=== PATIENT | male | born 1975 | race Caucasian/White ===

== ENCOUNTER → 2019-08-08 11:29 | Outpatient (BNVA) | payer MEDICAID, SELFPAY | PROVIDERS: Family Provider Family Medicine; PCP Family Medicine; Referring Provider Family Medicine; Visit Provider Nurse Practitioner | DX: G43.711 Chronic migraine without aura, intractable, with status migrainosus (principal); G40.209 Localization-related (focal) (partial) symptomatic epilepsy and epileptic syndromes with complex partial seizures, not intractable, without status epilepticus; F17.210 Nicotine dependence, cigarettes, uncomplicated | CPT/HCPCS: 99214; 99999 ==

== ENCOUNTER 2019-09-25 08:49 | Outpatient (CLI) | payer MEDICAID, SELFPAY ==
--- NOTE | 2019-09-25 08:57 | MR_ITS ---
WS: [id number] MRI LUMBAR SPINE NONCONTRAST TECHNIQUE: Sagittal T1, T2 and STIR imaging. Axial T1 and T2 imaging. CLINICAL INFORMATION: SCIATICA COMPARISON: MRI FINDINGS: Normal lumbar alignment. No acute compression. No high-grade central canal stenosis. Incidental heman gioma T2 and T10 vertebral body. L1-L2: Normal. L2-L3: Normal. L3-L4: No significant disc bulging. Tiny bilateral foraminal protrusions with mild foraminal narrowin g. Spinal canal is patent. Mild facet arthropathy. L4-L5: Mild annular bulging. Small right foraminal protrusion with mild right foraminal narrowing. Le ft foramen is patent. Mild facet arthropathy. Spinal canal is patent. L5-S1: No significant disc bulging. Spinal canal and foramen are patent. Mild facet arthropathy. Visualized pelvic bony structures: Normal. Paravertebral soft tissues: Normal. MR/MR lumbar spine wo con* [id number] IMPRESSION: 1. Normal lumbar alignment. No acute compression. No significant central canal narrowing. 2. Tiny bilateral foraminal protrusions L3-4 with mild bilateral foraminal enrico rowing. 3. Tiny right foraminal protrusion L4-5 slightly encroaches on the exiting rig ht L4 nerve root. 4. Mild facet arthropathy L3-L5.
--- NOTE | 2019-09-25 08:57 | MM_ITS ---
WS: [id number] DIAGNOSTIC BILATERAL DIGITAL MAMMOGRAM WITH CAD Bilateral breast ultrasound, limited HISTORY: PRITI BREAST LUMPS, 44-year-old male. COMPARISON: None available. TECHNIQUE: Bilateral craniocaudad, mediolateral oblique, and mediolateral views are submitted. Spot c ompression LEFT CC. Computer aided detection utilized. Breast composition: The breasts are almost entirely fatty. Triangular markers are placed over each br east. Markers correspond to the palpable abnormalities. There are no suspicious masses. There is a ly mph node suspected at the 2:00 axis of the LEFT breast. No nipple retraction. No adenopathy. Bilateral breast ultrasound. No suspicious masses or shadowing identified within either breast at the palpable abnormality sites. There is a lymph node at 2:00 LEFT breast which is benign. Lymph node measures 6 mm and corresponds t o the mammographic abnormality. MM/[place] [id number] IMPRESSION: BI-RADS: 2-Benign FOLLOW UP: See Report No breast masses are identified.
== END 2019-09-25 08:50 | disposition home or self-care (01) ==
LOC: RADSHAW 08:53
PROVIDERS: PCP Family Medicine; Visit Provider Family Medicine
DX: N63.10 Unspecified lump in the right breast, unspecified quadrant (principal); N63.20 Unspecified lump in the left breast, unspecified quadrant; M54.30 Sciatica, unspecified side; M51.26 Other intervertebral disc displacement, lumbar region; M47.816 Spondylosis without myelopathy or radiculopathy, lumbar region
CPT/HCPCS: 72148; 76642; 77066

== ENCOUNTER → 2020-01-13 13:33 | Outpatient (BNVA) | payer MEDICAID, SELFPAY | PROVIDERS: Visit Provider Psychiatry & Neurology Psychiatry | DX: F33.2 Major depressive disorder, recurrent severe without psychotic features (principal); F41.1 Generalized anxiety disorder; F17.200 Nicotine dependence, unspecified, uncomplicated; F10.20 Alcohol dependence, uncomplicated; F79 Unspecified intellectual disabilities | CPT/HCPCS: 99204 ==

== ENCOUNTER → 2020-02-10 07:36 | Outpatient (BNVA) | payer MEDICAID, SELFPAY | PROVIDERS: Visit Provider Psychiatry & Neurology Psychiatry | DX: F41.1 Generalized anxiety disorder (principal); F33.2 Major depressive disorder, recurrent severe without psychotic features; F79 Unspecified intellectual disabilities; F17.200 Nicotine dependence, unspecified, uncomplicated; F10.20 Alcohol dependence, uncomplicated | CPT/HCPCS: 99213 ==

== ENCOUNTER → 2020-04-24 09:43 | Outpatient (BNVA) | payer MEDICAID, SELFPAY | PROVIDERS: Visit Provider Psychiatry & Neurology Psychiatry | DX: F41.1 Generalized anxiety disorder (principal); F33.2 Major depressive disorder, recurrent severe without psychotic features; F79 Unspecified intellectual disabilities; F17.200 Nicotine dependence, unspecified, uncomplicated; F10.20 Alcohol dependence, uncomplicated | CPT/HCPCS: 99213 ==

== ENCOUNTER → 2020-06-30 10:39 | Outpatient (BNVA) | payer MEDICAID, SELFPAY | PROVIDERS: Visit Provider Counselor Mental Health | DX: F41.1 Generalized anxiety disorder (principal); F33.2 Major depressive disorder, recurrent severe without psychotic features; F79 Unspecified intellectual disabilities | CPT/HCPCS: 90834 ==

== ENCOUNTER → 2020-07-14 12:37 | Outpatient (BNVA) | payer MEDICAID, SELFPAY | PROVIDERS: Visit Provider Counselor Mental Health | DX: F41.1 Generalized anxiety disorder (principal); F33.2 Major depressive disorder, recurrent severe without psychotic features; F70 Mild intellectual disabilities | CPT/HCPCS: 90832 ==

== ENCOUNTER → 2020-07-17 15:17 | Outpatient (BNVA) | payer MEDICAID, SELFPAY | PROVIDERS: Visit Provider Psychiatry & Neurology Psychiatry | DX: F41.1 Generalized anxiety disorder (principal); F33.2 Major depressive disorder, recurrent severe without psychotic features; F10.20 Alcohol dependence, uncomplicated; F17.200 Nicotine dependence, unspecified, uncomplicated; F79 Unspecified intellectual disabilities | CPT/HCPCS: 99213 ==

== ENCOUNTER → 2020-08-26 10:45 | Outpatient (BNVA) | payer MEDICAID, SELFPAY | PROVIDERS: Visit Provider Counselor Mental Health | DX: F41.1 Generalized anxiety disorder (principal); F33.2 Major depressive disorder, recurrent severe without psychotic features | CPT/HCPCS: 90832 ==

== ENCOUNTER → 2020-09-21 13:42 | Outpatient (BNVA) | payer MEDICAID, SELFPAY | PROVIDERS: Visit Provider Counselor Mental Health | DX: F41.1 Generalized anxiety disorder (principal); F33.2 Major depressive disorder, recurrent severe without psychotic features; F79 Unspecified intellectual disabilities | CPT/HCPCS: 90832 ==

== ENCOUNTER → 2020-10-06 12:51 | Outpatient (BNVA) | payer MEDICAID, SELFPAY | PROVIDERS: Visit Provider Counselor Mental Health | DX: F41.1 Generalized anxiety disorder (principal); F33.2 Major depressive disorder, recurrent severe without psychotic features | CPT/HCPCS: 90832 ==

== ENCOUNTER → 2020-10-16 09:34 | Outpatient (BNVA) | payer MEDICAID, SELFPAY | PROVIDERS: Visit Provider Psychiatry & Neurology Psychiatry | DX: F41.1 Generalized anxiety disorder (principal); F33.2 Major depressive disorder, recurrent severe without psychotic features; F17.200 Nicotine dependence, unspecified, uncomplicated; F10.20 Alcohol dependence, uncomplicated; F79 Unspecified intellectual disabilities | CPT/HCPCS: 99214 ==

== ENCOUNTER → 2020-12-09 10:29 | Outpatient (BNVA) | payer MEDICAID, SELFPAY | PROVIDERS: Visit Provider Psychiatry & Neurology Psychiatry | DX: F41.1 Generalized anxiety disorder (principal); F33.2 Major depressive disorder, recurrent severe without psychotic features; F17.210 Nicotine dependence, cigarettes, uncomplicated; F11.20 Opioid dependence, uncomplicated; F10.20 Alcohol dependence, uncomplicated; F79 Unspecified intellectual disabilities | CPT/HCPCS: 80307; 99214 ==

== ENCOUNTER → 2020-12-16 11:45 | Outpatient (BNVA) | payer MEDICAID, SELFPAY | PROVIDERS: Visit Provider Psychiatry & Neurology Psychiatry | DX: F41.1 Generalized anxiety disorder (principal); F33.2 Major depressive disorder, recurrent severe without psychotic features; F10.20 Alcohol dependence, uncomplicated; F17.200 Nicotine dependence, unspecified, uncomplicated; F11.20 Opioid dependence, uncomplicated; F79 Unspecified intellectual disabilities | CPT/HCPCS: 99214 ==

== ENCOUNTER → 2020-12-18 07:43 | Outpatient (BNVA) | payer MEDICAID, SELFPAY | PROVIDERS: Visit Provider Psychiatry & Neurology Psychiatry | DX: F11.20 Opioid dependence, uncomplicated (principal); F33.2 Major depressive disorder, recurrent severe without psychotic features | CPT/HCPCS: 80053; 80061; 80307; 83036; 84443; 85025 ==

== ENCOUNTER → 2020-12-30 11:30 | Outpatient (BNVA) | payer MEDICAID, SELFPAY | PROVIDERS: Visit Provider Psychiatry & Neurology Psychiatry | DX: F11.20 Opioid dependence, uncomplicated (principal); F79 Unspecified intellectual disabilities; F33.2 Major depressive disorder, recurrent severe without psychotic features; F17.200 Nicotine dependence, unspecified, uncomplicated; F10.20 Alcohol dependence, uncomplicated; F41.1 Generalized anxiety disorder | CPT/HCPCS: 80307 ==

== ENCOUNTER → 2021-01-27 12:03 | Outpatient (BNVA) | payer MEDICAID, SELFPAY | PROVIDERS: Visit Provider Psychiatry & Neurology Psychiatry | DX: F33.2 Major depressive disorder, recurrent severe without psychotic features (principal); F79 Unspecified intellectual disabilities; F11.20 Opioid dependence, uncomplicated; F10.20 Alcohol dependence, uncomplicated | CPT/HCPCS: 80307; 99214 ==

== ENCOUNTER → 2021-03-10 11:21 | Outpatient (BNVA) | payer MEDICAID, SELFPAY | PROVIDERS: Visit Provider Psychiatry & Neurology Psychiatry | DX: F33.2 Major depressive disorder, recurrent severe without psychotic features (principal); F41.1 Generalized anxiety disorder; F79 Unspecified intellectual disabilities; F10.20 Alcohol dependence, uncomplicated; F17.200 Nicotine dependence, unspecified, uncomplicated; F11.20 Opioid dependence, uncomplicated | CPT/HCPCS: 80307; 99214 ==

== ENCOUNTER 2021-03-28 18:13 | Emergency (ER) | payer MEDICAID, SELFPAY ==
[2021-03-28 18:16] VITALS: PULSE 51; RESP 22; TEMP 36.9; O2SAT 100; BMI 31.6
--- NOTE | 2021-03-28 18:21 | ED_ITS ---
HPI - Abdominal Pain General: Chief Complaint: General Medical Stated Complaint: ABD PAIN Time Seen by Provider: 03/28/21 18:14 Source: patient and EMS Mode of arrival: EMS Limitations: no limitations History of Present Illness: HPI narrative: 45-year-old male states that starting days having severe right lower quadrant pain that radiated to his testicle he denies any worsening improving factors he states the pain is sharp in nature and rates it a 9 out of 10 he had no vomiting no diarrhea no history of kidney stones never had pain like this before some pain in that testicle as well denies any dysuria or penile discharge. No fever. Associated Symptoms: Denies chills and fever(s) Review of Systems Const: Denies: fever(s), chills, body aches or change in appetite Eyes: Denies: blurry vision or eye discomfort ENMT: Denies: throat pain or dental pain Card: Denies: chest pain Resp: Denies: dyspnea GI: Reports: abdominal pain : Reports: testicular pain Musc: Denies: neck pain or back pain Skin/Breast: Denies: rash Neuro: Denies: headache(s) Psych: Denies: depression Sarkis/Lymph: Denies: easy bruising All/Imm: Denies: urticaria PFSH ED PFSH: Family History Other CAD (coronary artery disease) Cancer Diabetes Social History (Updated 10/16/20 @ 09:54 by Geovanny Yadav LPN) Smoking and tobacco status: current every day smoker cigarettes Packs smoked per day: 0.5 Years cigarettes smoked: 24 Quit status (tobacco): has tried quititng Number of times tried to quit tobacco: 1 Second hand smoke exposure: Yes History of recent travel: No Current gender identity: Male Physical Exam Const: COMMON NORMALS: no acute distress, patient oriented x3 and healthy appearing HENMT: COMMON NORMALS: normocephalic and atraumatic HEAD & SCALP: normocephalic and atraumatic Eye: COMMON NORMALS: Equal, round and reactive pupils present and EOMs intact bilaterally PUPIL: Yes Equal, round and reactive pupils present Neck/C-Spine: COMMON NORMALS: full ROM and supple Chest: COMMONS NORMALS: normal inspection of the chest and normal palpation of entire chest wall Resp: COMMON NORMALS: normal respiratory effort, No retractions, No use of accessory muscles and clear to auscultation bilaterally AUSCULTATION: clear to auscultation bilaterally Cardio: COMMON NORMALS: regular rate, regular rhythm and No murmurs present (Cardio) RATE: regular rate RHYTHM: regular rhythm GI: COMMON NORMALS: Normal to inspection, nondistended, normoactive bowel deirdre nds present, Soft to palpation and no masses PALPATION: Yes Soft to palpation and Yes Tenderness to palpation present (GI) Details: RLQ Extremity: COMMON NORMALS: normal to inspection and full ROM Neuro: COMMON NORMALS: patient oriented x3, moves all extremities and no focal motor deficits Psych: COMMON NORMALS: mental status grossly normal, Normal thought process present and cooperative THOUGHT PROCESS: Normal thought process present Skin: COMMON NORMALS: no rashes or lesions noted and no wounds GENERAL SKIN EXAM: no rashes or lesions noted Course Vital Signs: Vital signs: Vital Signs Temperature 98.2 F 03/28/21 18:33 Pulse Rate 71 03/28/21 18:33 Respiratory Rate 18 03/28/21 19:46 Blood Pressure 231/116 03/28/21 18:33 Pulse Oximetry 100 03/28/21 18:33 MDM - Abdominal Pain MDM Narrative: Medical decision making narrative: Patient presents here with flank pain from a kidney stone should be able to pass stone at home his pain is controlled here we will get him follow-up with urology. He is return if worsening. Lab Data: Labs: Lab Results 03/28/21 03/28/21 18:02 18:02 WBC 17.3 10^3/uL H 10 ^3/uL (4.0-10.0) RBC 5.09 10^6/uL 10^6 /uL (4.1-5.3) Hgb 14.7 g/dL g/dL (11.7-16.6) Hct 42.1 % % (42.0-52.0) MCV 82.7 fl fl (80-94) MCH 28.9 pg pg (28.0-34.0) MCHC 34.9 g/dL g/dL (30.0-36.0) RDW 13.0 % % (12.1-15.1) Plt Count 372 10^3/cmm 10^3 /cmm (130-400) MPV 10.8 fL H fL (7.4-10.4) Neut % (Auto) 75.7 % % Lymph % (Auto) 15.9 % % Snyder % (Auto) 7.2 % % Eos % (Auto) 0.3 % % Baso % (Auto) 0.3 % % Neut # (Auto) 13.11 10^3/uL H 1 0^3/uL (1.8-7.7) Lymph # (Auto) 2.8 10^3/uL 10^3/ uL (0.8-4.8) Snyder # (Auto) 1.3 10^3/uL H 10^ 3/uL (0.2-0.9) Eos # (Auto) 0.1 10^3/uL 10^3/ uL (0.0-0.8) Baso # (Auto) 0.1 10^3/uL 10^3/ uL (0.0-0.1) Nucleated RBC % (a uto) 0 % % Nucleated RBCs # 0.0 /100WBC /100W BC Sodium 138 mmol/L mmol/L (136-145) Potassium 3.1 mmol/L L mmol /L (3.5-5.1) Chloride 104 mmol/L mmol/L (98-107) Carbon Dioxide 14 mmol/L L mmol/ L (22-29) Anion Gap 23.1 H (5-19) BUN 13 mg/dL mg/dL (6-20) Creatinine 1.0 mg/dL mg/dL (0.7-1.2) GFR Calculation 80.8 mL/min L mL/ min (90-130) Glucose 166 mg/dL H mg/dL (65-115) Calculated Osmolal ity 290 mOsm/kg mOsm/ kg (285-295) Calcium 9.0 mg/dL mg/dL (8.5-10.5) Total Bilirubin 0.3 mg/dL mg/dL (0.15-1.2) AST 13 U/L U/L (0-40) ALT 10 U/L U/L (0-41) Alkaline Phosphata se 91 IU/L IU/L (40-130) Total Protein 7.3 g/dL g/dL (6.6-8.7) Albumin 4.7 g/dL g/dL (3.5-5.2) Globulin 2.6 g/dL g/dL (1.3-4.6) Lipase 29 U/L U/L (13-60) Imaging Data ^: CT Abd/Pel: Attestation: I personally reviewed and interpreted this imaging study as follows: Radiologist's impression: [facility] [employer] [address] [address] CT Scan Report Signed Patient: Devonte Roberts Unit #: [id number] : 1975 Age/Sex: 45 / M ADM Date: 03/28/21 Loc: ER Room/Bed: Attending Dr: Ordering Provider/Ordering MD: Giuliana Person MD Date of Service: 03/28/21 Procedure(s): CT abdomen pelvis wo con [id number] Accession Number(s): [id number] Report Number: [id number] PROCEDURE INFORMATION: Exam: CT Abdomen And Pelvis Without Contrast Exam date and time: 03/28/2021 6:19 PM Age: 45 years old Clinical indication: Abdominal pain; Localized; Right; Patient HX: Rlq and ruq pain x 1 day; Additional info: Rlq pain TECHNIQUE: Imaging protocol: Computed tomography of the abdomen and pelvis without contrast. Radiation optimization: All CT scans at this facility use at least one of these dose optimization techniques: automated exposure control; mA and/or kV adjustment per patient size (includes targeted exams where dose is matched to clinical indication); or iterative reconstruction. COMPARISON: CR Hip 2-3v RIGHT wwo Pelv* [id number] 02/21/2016 11:32 PM RADIATION DOSE METRICS: Total DLP (mGy-cm): 1719.5 FINDINGS: Heart: The heart is enlarged. Diaphragm: A small hiatal hernia is present. Liver: Unremarkable.No mass. Gallbladder and bile ducts: Normal. No calcified stones. No ductal dilation. Pancreas: The pancreas is normal. Spleen: The spleen is normal. Adrenal glands: The adrenal glands are normal. Kidneys and ureters: There is mild right hydronephrosis and hydroureter with a 3 mm calculus just proximal to the right ureteral vesicle junction. There are multiple bilateral renal collecting system calcifications. There is no evidence of left hydronephrosis. Stomach and bowel: Wall of the colon appears mildly thickened but is also collapsed and the appearance is compatible with lack of distension. Remaining loops of bowel have an appropriate appearance.There is no evidence of intestinal perforation or obstruction. Appendix: A normal appendix is identified. Intraperitoneal space: Unremarkable. No free air. No significant fluid collection. Vasculature: The aorta is normal. Lymph nodes: Unremarkable.No enlarged lymph nodes. Urinary bladder: There is nonspecific bladder wall thickening. This may be related to incomplete distention. Reproductive: The prostate demonstrates mild nonspecific enlargement. The seminal vesicles are normal. The prostate demonstrates nonspecific parenchymal calcifications. Bones/joints: Unremarkable. No acute fracture. Soft tissues: Small bilateral fat filled inguinal hernias are noted. CT/CT abdomen pelvis wo con [id number] IMPRESSION: There is mild right hydronephrosis and hydroureter with a 3 mm calculus just proximal to the right ureteral vesicle junction. Dictated By: Mini Preston Signed By: Mini Preston Signed Date/Time: 03/28/211931 DD/ 18 Discharge Plan Discharge Patient Disposition: Home Clinical Impression: Kidney stone Condition: Stable Prescriptions: New hydrocodone-acetaminophen 5-325 mg tablet 1 tab PO Q6H PRN (Reason: pain) Qty: 14 RF: 0 ondansetron 4 mg tablet,disintegrating 4 mg PO Q6H PRN (Reason: nausea and vomiting) Qty: 14 RF: 0 Flomax 0.4 mg capsule 0.4 mg PO Q24H Qty: 4 RF: 0 No Action All Day Allergy (cetirizine) 10 mg capsule 10 mg PO DAILY RF: 0 Excedrin Tension Headache 500-65 mg tablet 1 tab PO Q12H PRNRF: 0 metoprolol succinate 25 mg capsule,sprinkle,ER 24hr 25 mg PO DAILY RF: 0 irbesartan 75 mg tablet 300 mg PO .HS RF: 0 gabapentin 100 mg capsule 300 mg PO TID RF: 0 fluticasone propionate 50 mcg/actuation blister with device 2 inh INHALATION DAILY RF: 0 topiramate 50 mg tablet 50 mg PO BID RF: 0 furosemide 40 mg tablet 40 mg PO DAILY PRNRF: 0 albuterol sulfate [ProAir HFA] 90 mcg/actuation HFA aerosol inhaler 1 inh INHALATION Q6H PRNRF: 0 ondansetron HCl 8 mg tablet 8 mg PO Q8H PRNRF: 0 Vimpat 200 mg tablet 200 mg PO BID Qty: 60 RF: 5 omeprazole 20 mg capsule,delayed release(DR/EC) 40 mg PO DAILY RF: 0 tizanidine 2 mg capsule 2 mg PO QID PRNRF: 0 alum-mag hydroxide-simeth [Mylanta Maximum Strength] 400-400-40 mg/5 mL suspension 10 ml PO TID PRNRF: 0 polyethylene glycol 3350 17 gram powder in packet 17 g PO DAILY PRN (Reason: constipation) RF: 0 benzonatate 200 mg capsule 200 mg PO TID PRN (Reason: cough) RF: 0 varenicline 1 mg tablet 1 mg PO BID RF: 0 triamcinolone acetonide 0.025 % cream 1 applic topical BID RF: 0 bismuth subsalicylate [Pepto-Bismol] 262 mg/15 mL suspension 524 mg PO Q30M PRNRF: 0 buspirone 7.5 mg tablet 7.5 mg PO BID Qty: 60 RF: 2 chlorpromazine 50 mg tablet 25 mg PO BID Qty: 60 RF: 2 fluoxetine 20 mg capsule 60 mg PO DAILY Qty: 90 RF: 2 haloperidol 5 mg tablet 5 mg PO TID PRN (Reason: agitation) Qty: 90 RF: 2 hydroxyzine HCl 50 mg tablet 50 mg PO TID PRN (Reason: anxiety) Qty: 90 RF: 2 nortriptyline 50 mg capsule 50 mg PO .HS Qty: 30 RF: 2 trazodone 100 mg tablet 200 mg PO .HS PRN (Reason: insomnia) Qty: 60 RF: 2 buprenorphine-naloxone 8-2 mg film 1.5 film sublingual DAILY Qty: 45 RF: 2 Discharge Orders: Discharge ED (Routine); Ordered 03/28/21 Ordered By: Giuliana Person Referrals: Michel Hercules MD [Physician] - 1-3 days Discharge Diet: Advance as tolerated Discharge Activity: Resume usual activity Patient Instructions: Kidney Stones (ED) Coding Level of Care Code ED Sprayer Machine for Chg Fwd Exam Comprehensive
[2021-03-28] MEDS: sodium chloride 0.9% 1,000 ML 999 ML IV (18:28)
[2021-03-28 18:29] VITALS: RESP 22; O2SAT 100
[2021-03-28] MEDS: HYDROmorphone 1 mg/mL INJ 1 mL IVP ×2 (18:29→19:46)
[2021-03-28] MEDS: ondansetron 2 mg/ML SDV 2 mL 4 MG IVP (18:29)
[2021-03-28 18:33] VITALS: BP 231/116; PULSE 71; RESP 31; TEMP 36.8; O2SAT 100
--- NOTE | 2021-03-28 18:38 | ECG_ITS ---
[facility] Test Date: 2021-03-28 Pat Name: Devonte Roberts Department: Room: Gender: Male Belt Builder: : 1975 Requested By: Giuliana Person Order Number: [id number] Arpita MD: Latia Rodriguez M.D. Measurements Intervals [place] Rate: 53 P: 22 IN: 161 QRS: 15 QRSD: 110 T: 30 QT: 454 QTc: 427 Interpretive Statements Possible SINUS BRADYCARDIA NONSPECIFIC T-WAVE ABNORMALITY Compared to ECG 12/23/2014 01:08:32 T-wave abnormality now present Prolonged QT interval no longer present Electronically Signed On 03-28-2021 20:25:41 SUSHI CHEF by Latia Rodriguez M.D. [id number]
[2021-03-28 18:40] LABS: Basophils # 0.1 10^3/uL (0.0-0.1); Basophils % 0.3 %; Eosinophils # 0.1 10^3/uL (0.0-0.8); Eosinophils % 0.3 %; Hematocrit 42.1 % (42.0-52.0); Hemoglobin 14.7 g/dL (11.7-16.6); Lymphocytes # 2.8 10^3/uL (0.8-4.8); Lymphocytes % 15.9 %; Mean Corpuscular HGB Conc 34.9 g/dL (30.0-36.0); Mean Corpuscular Hemoglobin 28.9 pg (28.0-34.0); Mean Corpuscular Volume 82.7 fl (80-94); Mean Platelet Volume 10.8 fL (7.4-10.4); Monocytes # 1.3 10^3/uL (0.2-0.9); Monocytes % 7.2 %; Neutrophils # 13.11 10^3/uL (1.8-7.7); Neutrophils % 75.7 %; Nucleated Red Blood Cells % 0 %; Platelet Count 372 10^3/cmm (130-400); Red Blood Count 5.09 10^6/uL (4.1-5.3); White Blood Count 17.3 10^3/uL (4.0-10.0)
[2021-03-28] MEDS: hyDRALAzine 20 mg/mL INJ 1 mL 10 MG IVP (19:07)
[2021-03-28 19:16] LABS: Alanine Aminotransferase 10 U/L (0-41); Albumin Level 4.7 g/dL (3.5-5.2); Alkaline Phosphatase 91 IU/L (40-130); Anion Gap 23.1 (5-19); Aspartate Amino Transferase 13 U/L (0-40); Blood Urea Nitrogen 13 mg/dL (6-20); Carbon Dioxide 14 mmol/L (22-29); Chloride 104 mmol/L (98-107); Globulin 2.6 g/dL (1.3-4.6); Glomerular Filtration Rate 80.8 mL/min (90-130); Glucose 166 mg/dL (65-115); Lipase 29 U/L (13-60); Osmolality Calculated 290 mOsm/kg (285-295); Potassium 3.1 mmol/L (3.5-5.1); Sodium 138 mmol/L (136-145); Total Bilirubin 0.3 mg/dL (0.15-1.2); Total Protein 7.3 g/dL (6.6-8.7)
[2021-03-28 19:46] VITALS: RESP 18
[2021-03-28 20:43] VITALS: RESP 16; O2SAT 97
[2021-03-28] MEDS: HYDROmorphone 1 mg/mL INJ 1 mL 0.5 MG IVP (20:43)
[2021-03-28] MEDS: ketorolac 30 mg/mL INJ 15 MG IVP (20:43)
[2021-03-28 20:51] VITALS: BP 161/94; PULSE 51; RESP 18; O2SAT 97
--- NOTE | 2021-03-30 09:24 | DCPLANNER ---
finish production manager had message to schedule a follow up appointment for patient with Dr. Hercules. finish production manager emailed patients information to Robert Pretty and Julie at the office of Dr. Schwarz office. Patients information will printed and reviewed. Clinic will call patient with appointment information.
--- NOTE | 2021-04-08 08:38 | DCPLANNER ---
Patient had a follow up appointment scheduled for 03.31.[address] Hercules - appointment was cancelled.
== END 2021-03-28 20:53 | disposition home or self-care (01) ==
PROVIDERS: Emergency Provider Emergency Medicine
DX: N20.0 Calculus of kidney (principal); F17.210 Nicotine dependence, cigarettes, uncomplicated
CPT/HCPCS: 74176; 80053; 83690; 85025; 93005; 96361; 96374; 96375; 96376; 99284; J0360; J1170; J1885; J2405; J7030

== ENCOUNTER 2021-04-14 07:08 | Outpatient (CLI) | payer MEDICAID, SELFPAY ==
--- NOTE | 2021-04-14 07:12 | XR_ITS ---
WS: [id number] Exam: XR KUB [id number] Date/Time of Exam: 04/14/2021 7:13 AM Reason For Exam: stone No bowel obstruction or free air. No sign of organ enlargement. Moderate amount of stool in the colon . No abnormal abdominal calcifications seen. Regional bony elements are intact. Nonspecific small pel chula calcifications. XR/XR KUB [id number] IMPRESSION: 1. No acute abdominal finding.
== END 2021-04-14 07:09 | disposition home or self-care (01) ==
LOC: RAD 07:11
PROVIDERS: PCP Urology; Visit Provider Nurse Practitioner Family
DX: N20.9 Urinary calculus, unspecified (principal)
CPT/HCPCS: 74018

== ENCOUNTER 2021-04-19 12:44 | Outpatient (CLI) | payer MEDICAID, SELFPAY ==
--- NOTE | 2021-04-19 12:00 | XR_ITS ---
WS: [id number] KUB, AP view, 04/19/2021 Clinical Data: stone Comparison: KUB, 04/14/2021. Findings: No abnormal intraabdominal masses or calcifications are seen. There is no dilatated small bowel or ev idence of obstruction. There is a moderate amount of fecal material in the ascending and transverse colons. XR/XR KUB [id number] Impression: Negative KUB.
== END 2021-04-19 12:45 | disposition home or self-care (01) ==
LOC: RAD 12:45
PROVIDERS: PCP Urology; Visit Provider Urology
DX: N20.9 Urinary calculus, unspecified (principal)
CPT/HCPCS: 74018; 81003

== ENCOUNTER → 2021-04-21 10:09 | Outpatient (BNVA) | payer MEDICAID, SELFPAY | PROVIDERS: PCP Family Medicine; Visit Provider Psychiatry & Neurology Psychiatry | DX: F17.200 Nicotine dependence, unspecified, uncomplicated (principal); F41.1 Generalized anxiety disorder; F33.2 Major depressive disorder, recurrent severe without psychotic features; F79 Unspecified intellectual disabilities; F11.20 Opioid dependence, uncomplicated; F10.20 Alcohol dependence, uncomplicated | CPT/HCPCS: 99213 ==

== ENCOUNTER 2021-05-24 15:14 | Outpatient (CLI) | payer MEDICAID, SELFPAY ==
--- NOTE | 2021-05-24 15:15 | XRR_ITS ---
PROCEDURE INFORMATION: Exam: XR Abdomen Exam date and time: 05/24/2021 3:15 PM Age: 45 years old Clinical indication: Condition or disease; Kidney or ureter condition; Calculus (stone) in kidney; Additional info: Right ureteral calculus, kub @ oz on 05/24/21 @ 3:15. Appt to follow TECHNIQUE: Imaging protocol: XR of the abdomen. Views: Frontal supine view of the abdomen. 1 View. COMPARISON: CR XR KUB [id number] 04/19/2021 12:50 PM FINDINGS: Gastrointestinal tract: Normal. No bowel dilation. Bones/joints: Unremarkable. XR/XR KUB [id number] IMPRESSION: No acute findings.
== END 2021-05-24 15:15 | disposition home or self-care (01) ==
LOC: RAD 15:15
PROVIDERS: PCP Family Medicine; Visit Provider Urology
DX: N20.1 Calculus of ureter (principal)
CPT/HCPCS: 74018

== ENCOUNTER 2021-06-01 10:39 | Outpatient (CLI) | payer MEDICAID, SELFPAY ==
--- NOTE | 2021-06-01 12:00 | CT_ITS ---
WS: [id number] CT ABDOMEN AND PELVIS NONCONTRAST HISTORY: RIGHT URETERAL CALCULUS TECHNIQUE: Imaging performed through the abdomen and pelvis. Coronal and sagittal reformats are submi tted. All CT scans at [facility] use at least one of these dose optimization techniques: auto mated exposure control; mA and/or kV adjustment per patient size (includes targeted exams where dose is matched to clinical indication); or iterative reconstruction. DLP: 1180.13 mGy.cm COMPARISON: 04/15/2021 Lower thorax: Mild dependent changes at the lung bases. Heart size is slightly enlarged but stable. N o pericardial effusion. Very small hiatal hernia. Liver: As compared to the prior examination the liver appears heterogeneous and variable density wesley cially within the upper portion of the liver. No bile duct dilatation. May be due to fatty infiltrati on or hepatic venous congestion. Mild bile duct dilatation is not excluded. Gallbladder: Contracted gallbladder with no adjacent inflammation. Pancreas: Normal size and attenuation. Normal pancreatic duct. No pancreatitis or mass. Spleen: Normal. Adrenal glands: Normal. No mass. Right kidney: Normal size kidney. Nonobstructing 2 mm calcification in the mid to lower kidney. No hy dronephrosis. RIGHT ureter is normal caliber. Left kidney: Normal size kidney with no mass or hydronephrosis. Aorta: Mild atherosclerosis abdominal aorta with no aneurysm. Duplicated IVC. 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 No free fluid, intraperitoneal air or significant lymphadenopathy. GI tract: Stomach is moderately distended with food products and debris. No small bowel obstruction. The appendix is normal. No evidence for colitis. No obstruction of the colon. No significant divertic ular disease. Abdominal wall: Negative. No hernia. Pelvis: Well-distended urinary bladder. Bladder extends over length of 11 cm. Prostate gland is not s ignificantly enlarged. No adenopathy or ascites. Osseous structures: No fracture. Sclerotic focus in the RIGHT inferior pubic ramus is probably a bone island. CT/CT kidney stone [id number] IMPRESSION: 1. No renal obstruction or perinephric stranding. 2. Duplicated IVC, congenital variant. 3. Normal appendix. 4. Mild diffuse heterogeneity within the liver. New since 03/28/2021. Recommend follow-up ultrasound of the liver to evaluate for duct dilatation or hepatic co ngestion. Common bile duct at the pancreatic head is normal. 5. Contracted gallbladder may be due to a nonfasting state.
== END 2021-06-01 10:40 | disposition home or self-care (01) ==
LOC: RAD 10:40
PROVIDERS: PCP Family Medicine; Visit Provider Urology
DX: N20.1 Calculus of ureter (principal)
CPT/HCPCS: 74176

== ENCOUNTER 2021-06-13 18:18 | Inpatient (IN) | payer MEDICAID, SELFPAY ==
[2021-06-13 18:27] VITALS: BP 152/108; PULSE 72; RESP 16; TEMP 37; O2SAT 95; BMI 31.6
--- NOTE | 2021-06-13 18:28 | W.ED.PSYCHS ---
HPI - Psych General: Chief Complaint: Psychiatric Symptoms Stated Complaint: PSYCH EVAL Time Seen by Provider: 06/13/21 18:19 Source: patient and EMS Mode of arrival: EMS Limitations: no limitations History of Present Illness: 45-year-old male who is here from [facility]. He states he has been having increased depression with having thoughts of suicide also thoughts of harming others. Denies any specific plans he has been admitted to psych orr's in the past. He is cooperative here at this time he has not been combative denies any worsening improving factors. Associated symptoms: Reports homicidal ideation and suicidal ideation Review of Systems Const: Denies: fever(s), chills, body aches or change in appetite Eyes: Denies: blurry vision or eye discomfort ENMT: Denies: throat pain or dental pain Card: Denies: chest pain Resp: Denies: dyspnea GI: Denies: abdominal pain, nausea, vomiting or diarrhea : Denies: dysuria Musc: Denies: neck pain or back pain Skin/Breast: Denies: rash Neuro: Denies: headache(s) Psych: Reports: mood swings, suicidal ideation and homicidal ideation Sarkis/Lymph: Denies: easy bruising All/Imm: Denies: urticaria PFSH ED PFSH: Medical History Right ureteral calculus Family History Father , UNKNOWN AGE No problems noted. Mother , AT AGE 74 Lung disease Diabetes CHF (congestive heart failure) Other CAD (coronary artery disease) Cancer Social History Smoking and tobacco status: current every day smoker cigarettes Packs smoked per day: 0.5 Years cigarettes smoked: 24 Quit status (tobacco): has tried quititng Number of times tried to quit tobacco: 1 Second hand smoke exposure: Yes Alcohol intake: never Marital status: Legally Current occupational status: disabled History of recent travel: No Current gender identity: Male Physical Exam Const: COMMON NORMALS: no acute distress, patient oriented x3 and healthy appearing HENMT: COMMON NORMALS: normocephalic and atraumatic HEAD & SCALP: normocephalic and atraumatic Eye: COMMON NORMALS: Equal, round and reactive pupils present and EOMs intact bilaterally PUPIL: Yes Equal, round and reactive pupils present Neck/C-Spine: COMMON NORMALS: full ROM and supple Chest: COMMONS NORMALS: normal inspection of the chest and normal palpation of entire chest wall Resp: COMMON NORMALS: normal respiratory effort, No retractions, No use of accessory muscles and clear to auscultation bilaterally AUSCULTATION: clear to auscultation bilaterally Cardio: COMMON NORMALS: regular rate, regular rhythm and No murmurs present (Cardio) RATE: regular rate RHYTHM: regular rhythm GI: COMMON NORMALS: Normal to inspection, nondistended, normoactive bowel sounds present, Soft to palpation, non-tender and no masses PALPATION: Yes Soft to palpation Extremity: COMMON NORMALS: normal to inspection and full ROM Neuro: COMMON NORMALS: patient oriented x3, moves all extremities and no focal motor deficits Psych: COMMON NORMALS: mental status grossly normal, Normal thought process present and cooperative THOUGHT PROCESS: Normal thought process present THOUGHT CONTENT: Yes Homicidality present Skin: COMMON NORMALS: no rashes or lesions noted and no wounds GENERAL SKIN EXAM: no rashes or lesions noted Course Vital Signs: Vital signs: Vital Signs Temperature 98.6 F 06/13/21 18:27 Pulse Rate 72 06/13/21 18:27 Respiratory Rate 16 06/13/21 18:27 Blood Pressure 152/108 06/13/21 18:27 Pulse Oximetry 95 06/13/21 18:27 [facility] - Psych Medical Decision Making Patient presents here with suicidal and homicidal ideations. He is medically cleared placed on a 96-hour hold and will admit to the psych orr have spoke to Dr. Castillo who is excepting. Lab Data : 06/13/21 18:45 06/13/21 18:45 Laboratory Results WBC 8.8 10^3/uL (4.0-10.0) 06/13/21 18:45 RBC 5.05 10^6/uL (4.1-5.3) 06/13/21 18:45 Hgb 15.0 g/dL (11.7-16.6) 06/13/21 18:45 Hct 43.6 % (42.0-52.0) 06/13/21 18:45 MCV 86.3 fl (80-94) 06/13/21 18:45 MCH 29.7 pg (28.0-34.0) 06/13/21 18:45 MCHC 34.4 g/dL (30.0-36.0) 06/13/21 18:45 RDW 13.0 % (12.1-15.1) 06/13/21 18:45 Plt Count 326 10^3/cmm (130-400) 06/13/21 18:45 MPV 10.5 fL (7.4-10.4) H 06/13/21 18:45 Neut % (Auto) 61.4 % 06/13/21 18:45 Lymph % (Auto) 30.1 % 06/13/21 18:45 Union % (Auto) 6.2 % 06/13/21 18:45 Eos % (Auto) 1.0 % 06/13/21 18:45 Baso % (Auto) 0.7 % 06/13/21 18:45 Neut # (Auto) 5.40 10^3/uL (1.8-7.7) 06/13/21 18:45 Lymph # (Auto) 2.6 10^3/uL (0.8-4.8) 06/13/21 18:45 Union # (Auto) 0.5 10^3/uL (0.2-0.9) 06/13/21 18:45 Eos # (Auto) 0.1 10^3/uL (0.0-0.8) 06/13/21 18:45 Baso # (Auto) 0.1 10^3/uL (0.0-0.1) 06/13/21 18:45 Nucleated RBC % (auto) 0 % 06/13/21 18:45 Nucleated RBCs # 0.0 /100WBC 06/13/21 18:45 Sodium 143 mmol/L (136-145) 06/13/21 18:45 Potassium 3.6 mmol/L (3.5-5.1) 06/13/21 18:45 Chloride 108 mmol/L (98-107) H 06/13/21 18:45 Carbon Dioxide 22 mmol/L (22-29) 06/13/21 18:45 Anion Gap 16.6 (5-19) 06/13/21 18:45 BUN 8 mg/dL (6-20) 06/13/21 18:45 Creatinine 1.0 mg/dL (0.7-1.2) 06/13/21 18:45 GFR Calculation 80.8 mL/min (90-130) L 06/13/21 18:45 Glucose 118 mg/dL (65-115) H 06/13/21 18:45 Calculated Osmolality 295 mOsm/kg (285-295) 06/13/21 18:45 Calcium 9.0 mg/dL (8.5-10.5) 06/13/21 18:45 Total Bilirubin 0.3 mg/dL (0.15-1.2) 06/13/21 18:45 AST 28 U/L (0-40) 06/13/21 18:45 ALT 15 U/L (0-41) 06/13/21 18:45 Alkaline Phosphatase 83 IU/L (40-130) 06/13/21 18:45 Total Protein 7.4 g/dL (6.6-8.7) 06/13/21 18:45 Albumin 5.1 g/dL (3.5-5.2) 06/13/21 18:45 Globulin 2.3 g/dL (1.3-4.6) 06/13/21 18:45 Salicylates 1.6 mg/dL (3-10) L 06/13/21 18:45 Acetaminophen < 5.0 ug/mL (10-30) L 06/13/21 18:45 Ethyl Alcohol 216 mg/dL (0-10) H 06/13/21 18:45 Discharge Plan Discharge Patient Disposition: Admitted As Inpatient Clinical Impression: Suicidal ideation Condition: Stable Coding Level of Care Code ED Stockroom Attendant for Isaias Fwd Exam Comprehensive
[2021-06-13] MEDS: LORazepam 2 mg Tablet PO (18:40)
[2021-06-13 18:52] LABS: Basophils # 0.1 10^3/uL (0.0-0.1); Basophils % 0.7 %; Eosinophils # 0.1 10^3/uL (0.0-0.8); Hematocrit 43.6 % (42.0-52.0); Lymphocytes # 2.6 10^3/uL (0.8-4.8); Lymphocytes % 30.1 %; Mean Corpuscular HGB Conc 34.4 g/dL (30.0-36.0); Mean Corpuscular Hemoglobin 29.7 pg (28.0-34.0); Mean Corpuscular Volume 86.3 fl (80-94); Mean Platelet Volume 10.5 fL (7.4-10.4); Monocytes # 0.5 10^3/uL (0.2-0.9); Monocytes % 6.2 %; Neutrophils % 61.4 %; Nucleated Red Blood Cells % 0 %; Platelet Count 326 10^3/cmm (130-400); Red Blood Count 5.05 10^6/uL (4.1-5.3); White Blood Count 8.8 10^3/uL (4.0-10.0)
[2021-06-13 19:16] LABS: Acetaminophen < 5.0 ug/mL (10-30); Alanine Aminotransferase 15 U/L (0-41); Albumin Level 5.1 g/dL (3.5-5.2); Alcohol Level 216 mg/dL (0-10); Alkaline Phosphatase 83 IU/L (40-130); Anion Gap 16.6 (5-19); Aspartate Amino Transferase 28 U/L (0-40); Blood Urea Nitrogen 8 mg/dL (6-20); Carbon Dioxide 22 mmol/L (22-29); Chloride 108 mmol/L (98-107); Globulin 2.3 g/dL (1.3-4.6); Glomerular Filtration Rate 80.8 mL/min (90-130); Glucose 118 mg/dL (65-115); Osmolality Calculated 295 mOsm/kg (285-295); Potassium 3.6 mmol/L (3.5-5.1); Salicylate 1.6 mg/dL (3-10); Sodium 143 mmol/L (136-145); Total Bilirubin 0.3 mg/dL (0.15-1.2); Total Protein 7.4 g/dL (6.6-8.7)
[2021-06-13] MEDS: OLANZapine 10 mg TABLET PO (19:54)
[2021-06-13] MEDS: LORazepam 2 mg/mL INJ 1 mL IM (20:33)
[2021-06-13] MEDS: haloperidol inj 5 mg/mL INJ 1 mL IM (20:34)
--- NOTE | 2021-06-13 20:34 | PC.NURSE ---
Patient is becoming increasingly hostile and aggressive. He is requesting anxiety and pain medication for his back and neck. Advised Dr. Person
[2021-06-13] MEDS: HYDROcodone-acetaminophen 5-325 mg Tablet 1 TAB PO (20:36)
--- NOTE | 2021-06-13 23:25 | PC.NURSE ---
patient resting with eyes closed in bed, no acute distress noted at this time
[2021-06-14 05:46] VITALS: BP 172/100; PULSE 55; RESP 18; TEMP 36.5; O2SAT 97
--- NOTE | 2021-06-14 07:11 | PC.NURSE ---
Assumed care, pt is resting in bed, no s/s of distress or needs voiced.
--- NOTE | 2021-06-14 08:23 | PC.NURSE ---
Up to BR, urine sample obtained, eating am meal.
[2021-06-14 08:53] LABS: Amphetamines Screen Urine Negative (Negative); Barbiturates Screen Urine Negative (Negative); Benzodiazepines Screen Urine Positive (Negative); Cocaine Screen Urine Negative (Negative); Opiate Screen Urine Positive (Negative); PCP Screen Urine Negative (Negative); THC Screen Urine Positive (Negative)
--- NOTE | 2021-06-14 11:44 | NPU.GN ---
[facility] Topic:Mental Health discussion General Mood of Group: Devonte did not attend group today.
[2021-06-14 14:46] VITALS: BP 126/78; PULSE 62; RESP 15; TEMP 36.8; O2SAT 97
[2021-06-14] MEDS: chlorPROMazine 25 mg Tablet PO (19:50)
[2021-06-14] MEDS: gabapentin 300 mg Capsule PO (19:50)
[2021-06-14] MEDS: lacosamide 50 mg Tablet 200 MG PO (21:04)
[2021-06-14] MEDS: BuSPIRONE 10 mg Tablet PO (21:05)
[2021-06-14] MEDS: topiramate 100 mg Tablet 50 MG PO (21:05)
[2021-06-14 21:16] VITALS: BP 195/99; PULSE 58; RESP 18; TEMP 36.6; O2SAT 100
[2021-06-15 06:00] VITALS: BP 180/99; PULSE 54; RESP 17; TEMP 36.4; O2SAT 97
[2021-06-15] MEDS: fluoxetine 20 mg Capsule 60 MG PO (06:40)
[2021-06-15] MEDS: metoprolol succinate ER (24 HR) 50 mg Tablet PO (06:40)
[2021-06-15] MEDS: chlorPROMazine 25 mg Tablet PO ×2 (06:40→18:17)
[2021-06-15] MEDS: gabapentin 300 mg Capsule PO ×3 (06:40→18:17)
[2021-06-15] MEDS: fluticasone nasal spray 16gm Btl 2 SPRAY INTRANASAL (06:41)
--- NOTE | 2021-06-15 08:03 | PC.NURSE ---
refused scheduled Suboxone films
[2021-06-15] MEDS: cetirizine 10 mg Tablet PO (08:07)
[2021-06-15] MEDS: BuSPIRONE 10 mg Tablet PO ×2 (08:07→20:32)
[2021-06-15] MEDS: topiramate 100 mg Tablet 50 MG PO ×2 (08:07→20:32)
[2021-06-15] MEDS: pantoprazole DR 40 mg Tablet PO (08:07)
[2021-06-15] MEDS: lacosamide 50 mg Tablet 200 MG PO ×2 (08:08→20:32)
--- NOTE | 2021-06-15 10:35 | W.PM.NPUH&PS ---
Providers/Chief Complaint Admitting Physician: Edmond Contreras MD Primary Care Provider: Luz Maria Peralta DO Chief Complaint: PSYCH EVAL HPI NPU History of Present Illness Devonte Roberts is a 45 year old male admitted through our emergency room with the following report: 45-year-old male who is here from [facility].? He states he has been having increased depression with having thoughts of suicide also thoughts of harming others.? Denies any specific plans he has been admitted to psych orr's in the past.? He is cooperative here at this time he has not been combative denies any worsening improving factors. Associated symptoms: Reports homicidal ideation and suicidal ideation He said that he has been doing well. He has been taking his medication. He stopped taking the Suboxone recently because he cannot stand it takes. He says that he takes Suboxone for pain. He was taking oxycodone and I said he should change to that. He has asked his provider about tablets but he wants him to stay on the strips. He has been taking ibuprofen 800 mg 3 times a day and says that it does fairly well for his pain. He does not think that he has been more irritable since he stopped taking the Suboxone. He just lost his temper yesterday and said things that he did not really mean. He says that happens sometimes but he generally is able to control it. He says that if he really intended what he said that he would have done something more serious. He likes it headlamp like [facility]. He says that he is there because he is disabled with epilepsy and schizophrenia and has no family member where else to go. He said that he has heard voices but does not hear them now. His schizophrenia is mild and the medication takes care of all of the symptoms. He intends to go back there. He does not have a guardian. He is on a 96-hour hold. Below is the note from his most recent visit with his psychiatrist, Dr. Alejandra at [facility] in March. Psychiatry SOAP Note Diagnosis (1) Opioid use disorder, moderate, dependence: ?Status:?Acute (2) Alcohol use disorder, moderate, dependence: ?Status:?Acute (3) Nicotine dependence, unspecified, uncomplicated: ?Status:?Acute (4) Generalized anxiety disorder: ?Status:?Acute (5) Major depressive disorder, recurrent severe without psychotic features: ?Status:?Acute (6) Intellectual disability: ?Status:?Acute Psychiatry SOAP Note Time In: 12:15 Time Out: 12:35 Subjective Subjective: Patient seen by televisit for total 15 minutes today.? He has been struggling with kidney stone, we had to take him off Suboxone so he could be prescribed pain medication, but he says whatever reason they have not prescribed pain meds.? At this time we are not going to start the Suboxone until his kidney stone issue is resolved.? He denies any suicidal thoughts or alcohol or drug use and overall psychiatrically stable.? We will continue his current meds. Objective Objective: He is alert and oriented to person, place, time, and situation. His hygiene is appropriate. Sensorium is clear. Speech is of a regular rate, rhythm, volume, tone, and prosody. Eye contact is appropriate. There are no psychomotor changes reported. Mood is fine . Affect is mood congruent and non-labile. Thought process is linear, logical, and goal directed. He denies auditory or visual hallucinations and does not endorse any delusional thinking. He denies suicidal or homicidal thoughts. There is no passive wish of . Memory is intact for recent and remote events. He is cooperative and relates well to me by phone. Insight and judgment were deemed to be good given the recognition of problems and desire for treatment. Assesment & Plan Assessment: 45-year-old male with anxiety depression and history of intellectual disability also has opioid and alcohol use that are in remission, he was on Suboxone untilrecently. Plan: Continue BuSpar 7.5 mg twice daily Continue chlorpromazine 25 mg twice daily Continue Prozac 60 mg daily Continue Haldol 5 mg 3 times daily as needed Continue hydroxyzine 50 mg 3 times daily as needed Continue nortriptyline 50 mg at night Continue trazodone 200 mg at night He has refills on meds, return to clinic in 6 weeks if he is back on Suboxone I do not have a problem with that as long as his kidney stone issues resolved. Meds NPU Home Medications Medication Instructions Recorded Confirmed Last Taken Type albuterol sulfate 90 mcg/actuation 2 puff INHALATION Q6H PRN 08/08/19 06/14/21 Unknown History aerosol inhaler (ProAir HFA) furosemide 40 mg tablet 40 mg PO DAILY PRN 08/08/19 06/14/21 Unknown History lacosamide 200 mg tablet (Vimpat) 200 mg PO BID #60 tab 08/08/19 06/14/21 Unknown Rx topiramate 50 mg tablet 50 mg PO BID@07,20 08/08/19 06/14/21 Unknown History acetaminophen-caffeine 500 mg-65 See Rx Instructions .ROUTE .COMPLEX 01/13/20 06/14/21 Unknown History mg tablet (Excedrin Tension Headache) cetirizine 10 mg capsule (All Day 10 mg PO BEDTIME@20 01/13/20 06/14/21 Unknown History Allergy (cetirizine)) tizanidine 2 mg capsule 2 - 4 mg PO QID PRN cap 01/13/20 06/14/21 Unknown History benzonatate 200 mg capsule 200 mg PO TID PRN 12/30/20 06/14/21 Unknown History polyethylene glycol 3350 17 gram 17 g PO DAILY PRN 12/30/20 06/14/21 Unknown History oral powder packet bismuth subsalicylate 262 mg/15 mL See Rx Instructions .ROUTE .COMPLEX 01/27/21 06/14/21 Unknown History oral suspension (Pepto-Bismol) triamcinolone acetonide 0.025 % 1 applic TOPICAL BID 01/27/21 06/14/21 Unknown History topical cream ibuprofen 800 mg tablet 800 mg PO Q8H PRN 05/24/21 06/14/21 Unknown History acetaminophen 500 mg tablet 500 mg PO Q8H PRN 06/14/21 06/14/21 Unknown History aluminum-mag hydroxide-simethicone 15 ml PO Q8H PRN 06/14/21 06/14/21 Unknown History 200 mg-200 mg-20 mg/5 mL oral susp buprenorphine 8 mg-naloxone 2 mg See Rx Instructions .ROUTE .COMPLEX 06/14/21 06/14/21 05/25/21 History sublingual film (Suboxone) buspirone 7.5 mg tablet 7.5 mg PO BID@,06/14/21 06/14/21 Unknown History chlorpromazine 25 mg tablet 25 mg PO BID@,06/14/21 06/14/21 Unknown History fluoxetine 20 mg capsule 60 mg PO DAILY@06/14/21 06/14/21 Unknown History fluticasone propionate 50 2 spray INTRANASAL DAILY@06/14/21 06/14/21 Unknown History mcg/actuation nasal spray,suspension gabapentin 300 mg capsule 300 mg PO TID@,,06/14/21 06/14/21 Unknown History haloperidol 5 mg tablet 5 mg PO Q8H PRN 06/14/21 06/14/21 Unknown History hydroxyzine HCl 50 mg tablet 50 mg PO TID PRN 06/14/21 06/14/21 Unknown History irbesartan 300 mg tablet 300 mg PO DAILY@06/14/21 06/14/21 Unknown History metoprolol succinate 50 mg 50 mg PO DAILY@06/14/21 06/14/21 Unknown History tablet,extended release 24 hr nicotine (polacrilex) 4 mg gum 4 mg BUCCAL Q1H PRN 06/14/21 06/14/21 Unknown History nortriptyline 50 mg capsule 50 mg PO BEDTIME@06/14/21 06/14/21 Unknown History omeprazole 40 mg capsule,delayed 40 mg PO DAILY@06/14/21 06/14/21 Unknown History release ondansetron 4 mg disintegrating 4 mg PO Q6H PRN 06/14/21 06/14/21 Unknown History tablet ondansetron 8 mg disintegrating 8 mg PO Q8H PRN 06/14/21 06/14/21 Unknown History tablet trazodone 100 mg tablet 100 - 200 mg PO BEDTIME PRN 06/14/21 06/14/21 Unknown History varenicline 1 mg tablet 1 mg PO BID@06/14/21 06/14/21 Unknown History Allergies Allergy/AdvReac Type Severity Reaction Status Date / Time Iodinated Contrast Media Allergy Severe Coded: Verified 05/24/21 16:06 heart stopped Penicillins Allergy Intermediate Rash Verified 05/24/21 16:06 sulfamethoxazole Allergy Unknown Unkown Verified 05/24/21 16:06 [From ] trimethoprim [From ] Allergy Unknown Unkown Verified 05/24/21 16:06 PFS NPU PFSH: Medical History (Updated 06/15/21 @ 10:44 by Edmond Contreras MD) Chronic pain Right ureteral calculus Family History Father , UNKNOWN AGE No problems noted. Mother , AT AGE 74 Lung disease Diabetes CHF (congestive heart failure) Other CAD (coronary artery disease) Cancer Social History Smoking and tobacco status: current every day smoker cigarettes Packs smoked per day: 0.5 Years cigarettes smoked: 24 Quit status (tobacco): has tried quititng Number of times tried to quit tobacco: 1 Second hand smoke exposure: Yes Alcohol intake: never Marital status: Legally Current occupational status: disabled History of recent travel: No Current gender identity: Male Mental Status Exam MSE Comments: This is a 45-year-old male who appears approximately his stated age and is in no acute distress. He is in bed but sat up eventually. He is poorly groomed and dressed in hospital scrubs. psychomotor activity mildly decreased. Speech is at a regular rate and rhythm, normal volume, good articulation, not pressured. Alert, oriented X3 Attention and concentration probably average. Memory is intact Mood is good. Affect is euthymic. Thought process is logical and goal-directed. Thought content: Denies auditory and visual hallucinations. No delusions or paranoia are noted. No current suicidal ideation, and no homicidal ideation. Fund of knowledge is mildly diminished. Insight and judgment appear to be poor. Impulse control is poor. Vitals/I&O/Wt Last Vital Signs Temp 97.6 F 06/15/21 06:00 Pulse 54 L 06/15/21 06:00 Resp 17 06/15/21 06:00 BP 180/99 06/15/21 06:00 Pulse Ox 97 06/15/21 06:00 Weight last 48 hrs Weight 86.183 kg Data NPU : 06/13/21 18:45 06/13/21 18:45 A&P Assessment and plan (1) Suicidal ideation: Status: Acute (2) Alcohol use disorder, moderate, dependence: Status: Acute (3) Generalized anxiety disorder: Status: Acute (4) Major depressive disorder, recurrent severe without psychotic features: Status: Acute (5) Intellectual disability: Status: Acute Plan This is a 45-year-old man [place] resident with depression, anxiety and intellectual disability who became angry yesterday and threatened to hurt himself and others. Plan: 1. Continue current medication. 2. Continue every 15 minute checks for safety. 3. Encourage individual, group and milieu therapies. 4. Encourage sober living treatment after discharge at the highest level of care to which he is willing to commit. 5. We will monitor for safety for himself in the community prior to discharge. Involuntary Hold Information 96 Hour Hold: 96 Hour Involuntary Admission: Yes 96 Hour Hold Ending Date: 06/18/21 96 Hour Hold Ending Time: 00:01 Attestations NPU Medical Necessity Statement*: Inpatient hospitalization is medically necessary and the clinically appropriate intervention at this time. We will initiate medications and make changes as indicated. He will be in the hospital for over 2 midnights. 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
[2021-06-15] MEDS: ibuprofen 800 mg tablet PO ×2 (11:08→20:34)
--- NOTE | 2021-06-15 11:13 | NPU.GN ---
[facility] Topic:Positive Coping Skills General Mood of Group: Devonte did not attend group.
[2021-06-15 14:00] VITALS: BP 157/80; PULSE 62; RESP 16; TEMP 36.8; O2SAT 98
[2021-06-15] MEDS: trazodone 150 mg Tablet PO (20:32)
[2021-06-15] MEDS: nortriptyline 10 mg Capsule 50 MG PO (20:33)
[2021-06-15 22:00] VITALS: BP 173/107; PULSE 76; RESP 17; TEMP 36.7; O2SAT 98
--- NOTE | 2021-06-16 03:09 | PC.NURSE ---
2031- Rec'd trazodone for sleep and motrin for pain. 2131 They were effective.
[2021-06-16 06:00] VITALS: BP 163/94; PULSE 54; RESP 16; TEMP 36.4; O2SAT 99
[2021-06-16] MEDS: chlorPROMazine 25 mg Tablet PO ×2 (06:14→17:59)
[2021-06-16] MEDS: fluticasone nasal spray 16gm Btl 2 SPRAY INTRANASAL (06:14)
[2021-06-16] MEDS: metoprolol succinate ER (24 HR) 50 mg Tablet PO ×2 (06:14→16:52)
[2021-06-16] MEDS: gabapentin 300 mg Capsule PO ×3 (06:14→17:59)
[2021-06-16] MEDS: fluoxetine 20 mg Capsule 60 MG PO (06:14)
[2021-06-16] MEDS: pantoprazole DR 40 mg Tablet PO (09:30)
[2021-06-16] MEDS: topiramate 100 mg Tablet 50 MG PO ×2 (09:30→20:31)
[2021-06-16] MEDS: BuSPIRONE 10 mg Tablet PO ×2 (09:30→20:31)
[2021-06-16] MEDS: cetirizine 10 mg Tablet PO (09:30)
[2021-06-16] MEDS: ibuprofen 800 mg tablet PO ×2 (10:28→18:04)
--- NOTE | 2021-06-16 11:31 | NPU.GN ---
[facility] Topic:Positive Thoughts/ Negative Thoughts General Mood of Group: Devonte did not attend group today.
--- NOTE | 2021-06-16 13:51 | P.NPUPN_ITS ---
Subjective NPU Subjective: He says that he is doing much better. He could not really say whether it would be since we did not change his medications. He says that he hurt his leg and thats why he lost his temper. He wants to go back to [facility]. Mental Status Exam MSE Comments: This is a 45-year-old male who appears approximately his stated age and is in no acute distress. He is in bed but sat up eventually. He is poorly groomed and dressed in hospital scrubs. psychomotor activity mildly decreased. Speech is at a regular rate and rhythm, normal volume, good articulation, not pressured. Alert, oriented X3 Attention and concentration probably average. Memory is intact Mood is good. Affect is euthymic. Thought process is logical and goal-directed. Thought content: Denies auditory and visual hallucinations. No delusions or paranoia are noted. No current suicidal ideation, and no homicidal ideation. Fund of knowledge is mildly diminished. Insight and judgment appear to be poor. Impulse control is poor. Cognition: Patient Appearance: Disheveled/Poor Hygiene Level of Consciousness: Awake, Alert, Appropriate and Follows Commands Patient Cognition Impaired: No Ability to Follow Directions: Fair Patient Orientation (long list): Person, Place and Time Comprehension Ability: Mild Impairment Hallucination Type: None Delusion Description: Not Present Thought Process: Circumstantial Affect: Affect Description: Appropriate and Calm Behavior: Patient Behavior: Appropriate and Cooperative Speech Pattern: Appropriate and Clear Vitals/I&O/Wt Last Vital Signs Temp 97.6 F 06/16/21 06:00 Pulse 54 L 06/16/21 06:00 Resp 16 06/16/21 06:00 BP 163/94 06/16/21 06:00 Pulse Ox 99 06/16/21 06:00 Data NPU : 06/13/21 18:45 06/13/21 18:45 A&P Assessment and plan (1) Suicidal ideation: Status: Acute (2) Alcohol use disorder, moderate, dependence: Status: Acute (3) Generalized anxiety disorder: Status: Acute (4) Major depressive disorder, recurrent severe without psychotic features: Status: Acute (5) Intellectual disability: Status: Acute Plan This is a 45-year-old man [facility] resident with depression, anxiety and intellectual disability who became angry yesterday and threatened to hurt himself and others. Plan: 1. Continue current medication. 2. Continue every 15 minute checks for safety. 3. Encourage individual, group and milieu therapies. 4. Encourage sober living treatment after discharge at the highest level of care to which he is willing to commit. 5. We will monitor for safety for himself in the community prior to discharge. Involuntary Hold Information 96 Hour Hold: 96 Hour Involuntary Admission: Yes 96 Hour Hold Ending Date: 06/18/21 96 Hour Hold Ending Time: 00:01 Attestations NPU Medical Necessity Statement*: Inpatient hospitalization is medically necessary and the clinically appropriate intervention at this time. We will initiate medications and make changes as indicated. 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
[2021-06-16 14:00] VITALS: BP 183/101; PULSE 57; RESP 16; TEMP 36.5; O2SAT 99
[2021-06-16] MEDS: lacosamide 50 mg Tablet 200 MG PO ×2 (14:15→20:31)
[2021-06-16] MEDS: acetaminophen 325 mg Tablet 650 MG PO (14:23)
--- NOTE | 2021-06-16 14:45 | PC.NURSE ---
PATIENTS BP 183/101 AT 2:45 181/97 AT 3. NOTIFIED PHYSICIAN. CLONIDINE 0.1MG ADMINISTERED. BP AT 1625 180/86. NOTIFIED PHYSICIAN TOPROL XL 50MG ADMINISTERED WILL MONITOR FOR DRUG EFFECTIVENESS
[2021-06-16 15:04] VITALS: BP 181/97
[2021-06-16 15:39] VITALS: BP 181/97
[2021-06-16] MEDS: cloNIDine 0.1 mg Tablet PO (15:39)
[2021-06-16] MEDS: benztropine 1 mg Tablet PO (17:59)
--- NOTE | 2021-06-16 18:10 | PC.NURSE ---
BP 160/90 AT 1730. WILL RETAKE AT 1830
[2021-06-16] MEDS: nortriptyline 10 mg Capsule 50 MG PO (20:30)
[2021-06-16] MEDS: trazodone 150 mg Tablet PO (20:32)
[2021-06-16 21:34] VITALS: BP 179/87; PULSE 54; RESP 20; TEMP 36.8; O2SAT 100
[2021-06-17 06:00] VITALS: BP 162/92; PULSE 68; RESP 16; TEMP 36.6; O2SAT 97
[2021-06-17] MEDS: fluoxetine 20 mg Capsule 60 MG PO (06:32)
[2021-06-17] MEDS: chlorPROMazine 25 mg Tablet PO (06:32)
[2021-06-17] MEDS: gabapentin 300 mg Capsule PO ×2 (06:32→14:45)
[2021-06-17] MEDS: fluticasone nasal spray 16gm Btl 2 SPRAY INTRANASAL (06:34)
[2021-06-17] MEDS: lacosamide 50 mg Tablet 200 MG PO (08:34)
[2021-06-17] MEDS: metoprolol succinate ER (24 HR) 100 mg Tablet PO (08:34)
[2021-06-17] MEDS: BuSPIRONE 10 mg Tablet PO (08:34)
[2021-06-17] MEDS: cetirizine 10 mg Tablet PO (08:34)
[2021-06-17] MEDS: tizanidine 4 mg Tablet PO (08:34)
[2021-06-17] MEDS: topiramate 100 mg Tablet 50 MG PO (08:34)
[2021-06-17] MEDS: ibuprofen 800 mg tablet PO (08:34)
[2021-06-17] MEDS: pantoprazole DR 40 mg Tablet PO (08:35)
--- NOTE | 2021-06-17 12:04 | NPU.GN ---
[facility] Topic:Whine Barrel Activity General Mood of Group: Devonte did attend group today. He was social a little and he did participate in group.
[2021-06-17] MEDS: acetaminophen 325 mg Tablet 650 MG PO (13:29)
[2021-06-17 14:52] VITALS: BP 162/92; PULSE 68; RESP 16; TEMP 36.6; O2SAT 97
--- NOTE | 2021-06-17 14:52 | W.PM.NPUDCS ---
Diagnoses at Discharge Discharge Diagnosis (1) Suicidal ideation: Status: Acute (2) Alcohol use disorder, moderate, dependence: Status: Acute (3) Generalized anxiety disorder: Status: Acute (4) Major depressive disorder, recurrent severe without psychotic features: Status: Acute (5) Intellectual disability: Status: Acute Reason for Visit Reason for Visit: PSYCH EVAL Brief History: History of Present Illness Devonte Roberts is a 45 year old male admitted through our emergency room with the following report: 45-year-old male who is here from [facility].? He states he has been having increased depression with having thoughts of suicide also thoughts of harming others.? Denies any specific plans he has been admitted to psych orr's in the past.? He is cooperative here at this time he has not been combative denies any worsening improving factors. Associated symptoms: Reports homicidal ideation and suicidal ideation He said that he has been doing well.? He has been taking his medication.? He stopped taking the Suboxone recently because he cannot stand it takes.? He says that he takes Suboxone for pain.? He was taking oxycodone and I said he should change to that.? He has asked his provider about tablets but he wants him to stay on the strips.? He has been taking ibuprofen 800 mg 3 times a day and says that it does fairly well for his pain.? He does not think that he has been more irritable since he stopped taking the Suboxone.? He just lost his temper yesterday and said things that he did not really mean.? He says that happens sometimes but he generally is able to control it.? He says that if he really intended what he said that he would have done something more serious.? [facility] He says that he is there because he is disabled with epilepsy and schizophrenia and has no family member where else to go.? He said that he has heard voices but does not hear them now.? His schizophrenia is mild and the medication takes care of all of the symptoms.? He intends to go back there.? He does not have a guardian.? He is on a 96-hour hold. Below is the note from his most recent visit with his psychiatrist, Dr. Alejandra at [facility] in March. Hospital Course Hospital Course He slowly acclimated to the individual, group and milieu therapies provided. He appeared to get a much-needed break from his ISL as no medications were changed but he did report significant improvement over how he felt on admission. He was able to contract for safety outside the hospital prior to discharge. During the hospitalization, patient had routine laboratory studies which were within normal limits except for few outliers. Additionally there was a general medical evaluation which was also within normal limits and revealed no new acute processes. Discharge Summary: At the time of discharge, he denied psychosis or lethality. Mood and anxiety were well managed. Patient endorsed a plan to avoid all drugs of abuse and follow-up with the aftercare recommendations of the treatment team. Patient was evaluated and deemed to be absent credible lethality, and had achieved the maximum benefit from an inpatient hospitalization, so was discharged. Involuntary Hold Information 96 Hour Hold: 96 Hour Involuntary Admission: Yes 96 Hour Hold Ending Date: 06/18/21 96 Hour Hold Ending Time: 00:01 Mental Status Exam MSE Comments: This is an overweight versus obese white male in hospital scrubs with adequate grooming and eye contact. No abnormal movements except for mild psychomotor retardation. Cooperative with exam in no acute distress. Speech was all rate and volume. Mood described as better, affect congruent. Thought process organized. The continent: patient denies suicidal or homicidal ideation, there are no delusions reported or noted. Anddenied any auditory or visual hallucinations. Attention and concentration were intact and memory was reliable but none were formally tested. He is alert and oriented times three. Insight and judgment are fair and impulse control is fair. Discharge Data Studies Completed and Pending: Laboratory Results WBC 8.8 10^3/uL (4.0- 10.0) 06/13/21 18:45 RBC 5.05 10^6/uL (4.1 -5.3) 06/13/21 18:45 Hgb 15.0 g/dL (11.7-1 6.6) 06/13/21 18:45 Hct 43.6 % (42.0-52.0 ) 06/13/21 18:45 MCV 86.3 fl (80-94) 06/13/21 18:45 MCH 29.7 pg (28.0-34. 0) 06/13/21 18:45 MCHC 34.4 g/dL (30.0-3 6.0) 06/13/21 18:45 RDW 13.0 % (12.1-15.1 ) 06/13/21 18:45 Plt Count 326 10^3/cmm (130 -400) 06/13/21 18:45 MPV 10.5 fL (7.4-10.4 ) H 06/13/21 18:45 Neut % (Auto) 61.4 % 06/13/21 18:45 Lymph % (Auto) 30.1 % 06/13/21 18:45 [place] % (Auto) 6.2 % 06/13/21 18:45 Eos % (Auto) 1.0 % 06/13/21 18:45 Baso % (Auto) 0.7 % 06/13/21 18:45 Neut # (Auto) 5.40 10^3/uL (1.8 -7.7) 06/13/21 18:45 Lymph # (Auto) 2.6 10^3/uL (0.8- 4.8) 06/13/21 18:45 [place] # (Auto) 0.5 10^3/uL (0.2- 0.9) 06/13/21 18:45 Eos # (Auto) 0.1 10^3/uL (0.0- 0.8) 06/13/21 18:45 Baso # (Auto) 0.1 10^3/uL (0.0- 0.1) 06/13/21 18:45 Nucleated RBC % (a uto) 0 % 06/13/21 18:45 Nucleated RBCs # 0.0 /100WBC 06/13/21 18:45 Sodium 143 mmol/L (136-1 45) 06/13/21 18:45 Potassium 3.6 mmol/L (3.5-5 .1) 06/13/21 18:45 Chloride 108 mmol/L (98-10 7) H 06/13/21 18:45 Carbon Dioxide 22 mmol/L (22-29) 06/13/21 18:45 Anion Gap 16.6 (5-19) 06/13/21 18:45 BUN 8 mg/dL (6-20) 06/13/21 18:45 Creatinine 1.0 mg/dL (0.7-1. 2) 06/13/21 18:45 GFR Calculation 80.8 mL/min (90-1 30) L 06/13/21 18:45 Glucose 118 mg/dL (65-115 ) H 06/13/21 18:45 Calculated Osmolal ity 295 mOsm/kg (285- 295) 06/13/21 18:45 Calcium 9.0 mg/dL (8.5-10 .5) 06/13/21 18:45 Total Bilirubin 0.3 mg/dL (0.15-1 .2) 06/13/21 18:45 AST 28 U/L (0-40) 06/13/21 18:45 ALT 15 U/L (0-41) 06/13/21 18:45 Alkaline Phosphata se 83 IU/L (40-130) 06/13/21 18:45 Total Protein 7.4 g/dL (6.6-8.7 ) 06/13/21 18:45 Albumin 5.1 g/dL (3.5-5.2 ) 06/13/21 18:45 Globulin 2.3 g/dL (1.3-4.6 ) 06/13/21 18:45 Salicylates 1.6 mg/dL (3-10) L 06/13/21 18:45 Urine Opiates Scre en Positive ng/mL (N egative) H 06/14/21 Unknown Acetaminophen < 5.0 ug/mL (10-3 0) L 06/13/21 18:45 Ur Barbiturates Sc reen Negative ng/mL (N egative) 06/14/21 Unknown Ur Phencyclidine S crn Negative ng/mL (N egative) 06/14/21 Unknown Ur Amphetamines Sc reen Negative ng/mL (N egative) 06/14/21 Unknown U Benzodiazepines Scrn Positive ng/mL (N egative) H 06/14/21 Unknown Urine Cocaine Scre en Negative ng/mL (N egative) 06/14/21 Unknown U Marijuana (THC) Screen Positive ng/mL (N egative) H 06/14/21 Unknown Ethyl Alcohol 216 mg/dL (0-10) H 06/13/21 18:45 Vitals: Last Vital Signs Temp 97.9 F 06/17/21 06:00 Pulse 68 06/17/21 06:00 Resp 16 06/17/21 06:00 BP 162/92 06/17/21 06:00 Pulse Ox 97 06/17/21 06:00 Discharge Plan Discharge Patient Disposition: Home Condition: Stable Prescriptions: Continued All Day Allergy (cetirizine) 10 mg capsule 10 mg PO BEDTIME@20 0RF Excedrin Tension Headache 500-65 mg tablet See Rx Instructions .ROUTE .COMPLEX 0RF Rx Instructions: use as directed topiramate 50 mg tablet 50 mg PO BID@07,20 0RF furosemide 40 mg tablet 40 mg PO DAILY PRN (Reason: Edema) 0RF albuterol sulfate [ProAir HFA] 90 mcg/actuation HFA aerosol inhaler 2 puff INHALATION Q6H PRN (Reason: Shortness Of Breath) 0RF Vimpat 200 mg tablet 200 mg PO BID Qty: 60 5RF tizanidine 2 mg capsule 2 - 4 mg PO QID PRN (Reason: Spasms) 0RF polyethylene glycol 3350 17 gram powder in packet 17 g PO DAILY PRN (Reason: constipation) 0RF benzonatate 200 mg capsule 200 mg PO TID PRN (Reason: cough) 0RF triamcinolone acetonide 0.025 % cream 1 applic topical BID 0RF bismuth subsalicylate [Pepto-Bismol] 262 mg/15 mL suspension See Rx Instructions .ROUTE .COMPLEX 0RF Rx Instructions: use as directed on bottle ibuprofen 800 mg tablet 800 mg PO Q8H PRN (Reason: Pain) 0RF metoprolol succinate 50 mg Tablet Extended Release 24 Hr 50 mg PO DAILY@07 0RF omeprazole 40 mg Capsule,Delayed Release(Dr/Ec) 40 mg PO DAILY@15 0RF acetaminophen 500 mg Tablet 500 mg PO Q8H PRN (Reason: Pain) 0RF ondansetron 8 mg Tablet,Disintegrating 8 mg PO Q8H PRN (Reason: Nausea And Vomiting) 0RF nicotine (polacrilex) 4 mg Gum 4 mg BUCCAL Q1H PRN (Reason: Nicotine Cravings) 0RF chlorpromazine 25 mg Tablet 25 mg PO BID@,19 0RF gabapentin 300 mg Capsule 300 mg PO TID@07,15,19 0RF alum-mag hydroxide-simeth 200-200-20 mg/5 mL Suspension 15 ml PO Q8H PRN (Reason: upset stomach) 0RF irbesartan 300 mg Tablet 300 mg PO DAILY@20 0RF haloperidol 5 mg tablet 5 mg PO Q8H PRN (Reason: agitation) 0RF hydroxyzine HCl 50 mg tablet 50 mg PO TID PRN (Reason: Itching) 0RF trazodone 100 mg tablet 100 - 200 mg PO BEDTIME PRN (Reason: insomnia) 0RF buspirone 7.5 mg tablet 7.5 mg PO BID@07,19 0RF ondansetron 4 mg tablet,disintegrating 4 mg PO Q6H PRN (Reason: nausea and vomiting) 0RF fluoxetine 20 mg capsule 60 mg PO DAILY@07 0RF nortriptyline 50 mg capsule 50 mg PO BEDTIME@20 0RF varenicline 1 mg tablet 1 mg PO BID@07,20 0RF No Action buprenorphine-naloxone 2-0.5 mg tablet, sublingual 2 tab sublingual DAILY Qty: 60 1RF tamsulosin 0.4 mg capsule 0.4 mg PO .at bedtime 0RF Label Comments: This medicine was not on the med list from facility that patient gave this nurse. Discharge Orders: Discharge Order (Routine); Ordered 06/17/21 Ordered By: Stephon Patricio Referrals: Rip Alejandra MD [Physician] - 06/22/21 10:15 am Edmond Britt EdD, LPC [Therapist] - 06/29/21 1:45 pm Luz Maria Peralta DO [Primary Care Provider] - Discharge Diet: Regular Discharge Activity: Resume usual activity Patient Instructions: Generalized Anxiety Disorder, Depression (DC), Anxiety (DC), Opioid Safety Discharge Attestations NPU Time Spent in Discharge Care*: less than 30 min Specific Discharge Activities: Specific discharge activities: educating patient, discussing with pcp/other providers, documenting/other paperwork and evaluating patient/reviewing data Coding Level of Care Code Acute Chg FW DC note Diagnoses Suicidal ideation R45.851 Alcohol use disorder, moderate, dependence F10.20 Generalized anxiety disorder F41.1 Major depressive disorder, recurrent severe without psychotic features F33.2 Intellectual disability F79
[2021-06-17 14:54] VITALS: BP 162/92; PULSE 68; RESP 16; TEMP 36.6; O2SAT 97
[2021-06-17 14:55] VITALS: BP 162/92; PULSE 68; RESP 16; TEMP 36.6; O2SAT 97
--- NOTE | 2021-06-17 15:36 | PC.NURSE ---
PRN Medications Reports pain in right leg 09/03. Tylenol given at 1329 as ordered. Assessed approximately 30-45 minutes later and reports it was effective
== END 2021-06-17 16:49 | disposition home or self-care (01) | DRG 885 ==
LOC: ER 19:20 → NP 06-15 13:42 → ER IP 06-17 11:12
PROVIDERS: Admitting Provider Psychiatry & Neurology Psychiatry; Emergency Provider Emergency Medicine; PCP Family Medicine; Visit Provider Psychiatry & Neurology Psychiatry
DX: F33.2 Major depressive disorder, recurrent severe without psychotic features (principal); R45.851 Suicidal ideations; F11.20 Opioid dependence, uncomplicated; F17.210 Nicotine dependence, cigarettes, uncomplicated; R45.850 Homicidal ideations; G40.909 Epilepsy, unspecified, not intractable, without status epilepticus; F10.20 Alcohol dependence, uncomplicated; F41.1 Generalized anxiety disorder; F79 Unspecified intellectual disabilities
CPT/HCPCS: 80053; 80306; 80307; 85025; 96372; 97150; 97165; 99285; J0573; J1630; J2060; Q0161

== ENCOUNTER → 2021-06-25 15:09 | Outpatient (BNVA) | payer MEDICAID, SELFPAY | PROVIDERS: PCP Family Medicine; Visit Provider Psychiatry & Neurology Psychiatry | DX: F33.2 Major depressive disorder, recurrent severe without psychotic features (principal); F41.1 Generalized anxiety disorder; F79 Unspecified intellectual disabilities; F11.20 Opioid dependence, uncomplicated; F10.20 Alcohol dependence, uncomplicated; F17.200 Nicotine dependence, unspecified, uncomplicated; R39.11 Hesitancy of micturition | CPT/HCPCS: 99214 ==

== ENCOUNTER → 2021-07-15 07:58 | Outpatient (BNVA) | payer MEDICAID, SELFPAY | PROVIDERS: PCP Family Medicine; Visit Provider Counselor Mental Health | DX: F41.1 Generalized anxiety disorder (principal); F33.2 Major depressive disorder, recurrent severe without psychotic features; F79 Unspecified intellectual disabilities | CPT/HCPCS: 90832 ==

== ENCOUNTER → 2021-08-13 08:29 | Outpatient (BNVA) | payer MEDICAID, SELFPAY | PROVIDERS: PCP Family Medicine; Visit Provider Counselor Mental Health | DX: F41.1 Generalized anxiety disorder (principal); F33.2 Major depressive disorder, recurrent severe without psychotic features; F79 Unspecified intellectual disabilities | CPT/HCPCS: 90832 ==

== ENCOUNTER 2021-08-16 07:26 | Outpatient (CLI) | payer MEDICAID, SELFPAY ==
--- NOTE | 2021-08-16 07:31 | XR_ITS ---
WS: [id number] Exam: XR KUB [id number] Date/Time of Exam: 08/16/2021 7:32 AM Reason For Exam: UROLITHIASIS No bowel obstruction or free air. No obvious calcifications in the region of the kidneys. Small nonsp ecific pelvic calcifications. No sign of organ enlargement. Bony structures are intact. XR/XR KUB [id number] IMPRESSION: 1. No acute abdominal finding. 2. Small nonspecific pelvic calcifications.
== END 2021-08-16 07:27 | disposition home or self-care (01) ==
PROVIDERS: PCP Family Medicine; Visit Provider Urology
DX: N20.9 Urinary calculus, unspecified (principal); R39.9 Unspecified symptoms and signs involving the genitourinary system
CPT/HCPCS: 51798; 74018; 99213

== ENCOUNTER → 2021-08-20 14:24 | Outpatient (BNVA) | payer MEDICAID, SELFPAY | PROVIDERS: PCP Family Medicine; Visit Provider Psychiatry & Neurology Psychiatry | DX: F33.2 Major depressive disorder, recurrent severe without psychotic features (principal); F41.1 Generalized anxiety disorder; F79 Unspecified intellectual disabilities; F17.200 Nicotine dependence, unspecified, uncomplicated; F10.20 Alcohol dependence, uncomplicated; F11.20 Opioid dependence, uncomplicated | CPT/HCPCS: 99213 ==

== ENCOUNTER → 2021-09-06 09:55 | Outpatient (BNVA) | payer MEDICAID, SELFPAY | PROVIDERS: PCP Family Medicine; Visit Provider Nurse Practitioner Family | DX: N20.9 Urinary calculus, unspecified (principal); R39.9 Unspecified symptoms and signs involving the genitourinary system | CPT/HCPCS: 51741; 51798; 81003; 99213 ==

== ENCOUNTER 2021-11-02 15:18 | Outpatient (CLI) | payer MEDICAID, SELFPAY ==
--- NOTE | 2021-11-02 15:00 | XR_ITS ---
WS: [id number] XR KUB [id number] REASON FOR EXAM: UROLITHIASIS FINDINGS: The small right intrarenal calculi identified on the CT scan of 06/01/2021 are not identifiable on the current examination. No other urinary tract calculi are identified. The remainder of the abdomen and pelvis is unremarkable. XR/XR KUB [id number] IMPRESSION: No urinary tract calculi identified.
== END 2021-11-02 15:19 | disposition home or self-care (01) ==
LOC: RAD 15:18
PROVIDERS: PCP Family Medicine; Visit Provider Urology
DX: N20.9 Urinary calculus, unspecified (principal); R39.9 Unspecified symptoms and signs involving the genitourinary system
CPT/HCPCS: 51741; 51798; 74018; 81003; 99213

== ENCOUNTER → 2021-12-31 11:16 | Outpatient (BNVA) | payer MEDICAID, SELFPAY | PROVIDERS: PCP Family Medicine; Visit Provider Urology | DX: R39.9 Unspecified symptoms and signs involving the genitourinary system (principal); N20.9 Urinary calculus, unspecified | CPT/HCPCS: 51798; 99213 ==

== ENCOUNTER 2023-02-14 07:46 | Outpatient (CLI) | payer MEDICAID, SELFPAY ==
[2023-02-14 08:13] VITALS: PULSE 51; RESP 18; O2SAT 98
[2023-02-14 08:17] VITALS: PULSE 52
[2023-02-14] MEDS: albuterol 2.5 mg/3 mL Neb INHALATION (09:03)
== END 2023-02-14 07:47 | disposition home or self-care (01) ==
LOC: RT 07:46
PROVIDERS: PCP Family Medicine; Visit Provider Nurse Practitioner Family
DX: R06.09 Other forms of dyspnea (principal)
CPT/HCPCS: 94060; 94726; 94729; J7613

== ENCOUNTER 2023-02-15 07:05 | Outpatient (CLI) | payer MEDICAID, SELFPAY ==
--- NOTE | 2023-02-15 07:14 | US_ITS ---
WS: [id number] RIGHT UPPER QUADRANT ULTRASOUND HISTORY: HEPATITIS B CORE ANTIBODY POSITIVE COMPARISON: 04/29/2013 Liver: 14.2 cm in length. Normal size liver and echogenicity. No bile duct dilatation or mass. Portal Vein: Normal hepatopetal flow with monophasic waveform. Gallbladder: Normally distended gallbladder with no stones or wall thickening. CBD: 0.4 cm Pancreas: Normal size and echogenicity. Right kidney: 10.3 cm in length. Normal size and echogenicity. No hydronephrosis or mass. Aorta and IVC: Unremarkable abdominal aorta and IVC. No ascites. IMPRESSION: Normal RIGHT upper quadrant ultrasound.
== END 2023-02-15 07:06 | disposition home or self-care (01) ==
LOC: RAD 07:05
PROVIDERS: PCP Family Medicine; Visit Provider Internal Medicine
DX: R76.8 Other specified abnormal immunological findings in serum (principal)
CPT/HCPCS: 76705

== ENCOUNTER 2023-08-27 18:12 | Observation (INO) | payer MEDICAID, SELFPAY ==
[2023-08-27] VITALS (7 sets, daily range): BP systolic 116–156; BP diastolic 64–96; PULSE 57–69; RESP 16–18; TEMP 36.4–36.7; O2SAT 92–96; BMI 32.5
--- NOTE | 2023-08-27 18:42 | XRR_ITS ---
PROCEDURE INFORMATION: Exam: XR Chest Exam date and time: 08/27/2023 6:47 PM Age: 48 years old Clinical indication: Patient HX: Hemoptysis x 1 day TECHNIQUE: Imaging protocol: Radiologic exam of the chest. Views: 1 view. COMPARISON: CR XR chest 2V* [id number] 02/08/2023 10:21 AM FINDINGS: Lungs: No focal consolidation. Pleural spaces: No evidence of pneumothorax. No evidence of pleural effusion. Heart/Mediastinum: Cardiomediastinal silhouette is within normal limits. Bones/joints: No evidence of acute osseous abnormality. XR/XR chest 1V portable [id number] IMPRESSION: 1. No acute cardiopulmonary abnormality.
[2023-08-27 19:09] LABS: Basophils % 0.1 %; Eosinophils % 0.1 %; Hematocrit 37.4 % (37-53); Lymphocytes # 0.8 10^3/uL (0.8-4.8); Lymphocytes % 6.4 %; Mean Corpuscular HGB Conc 32.6 g/dL (30-55); Mean Corpuscular Hemoglobin 28.4 pg (27-33); Mean Platelet Volume 9.1 fL (7.4-10.4); Monocytes # 0.6 10^3/uL (0.2-0.9); Monocytes % 4.6 %; Neutrophils # 10.82 10^3/uL (1.8-7.7); Nucleated Red Blood Cells % 0 %; Platelet Count 284 10^3/cmm (157-399); Red Cell Distribution Width 12.2 % (12.1-15.1); White Blood Count 12.43 10^3/uL (3.29-11.43)
[2023-08-27 19:23] LABS: D Dimer 1.52 ug/mLFEU (0-0.59)
[2023-08-27 19:28] LABS: Alanine Aminotransferase 19 U/L (0-41); Albumin Level 3.9 g/dL (3.5-5.2); Alkaline Phosphatase 83 U/L (40-130); Anion Gap 14.2 (5-19); Aspartate Amino Transferase 23 U/L (0-40); Blood Urea Nitrogen 13 mg/dL (6-20); Calcium 8.7 mg/dL (8.5-10.5); Carbon Dioxide 23 mmol/L (22-29); Chloride 103 mmol/L (98-107); Creatinine Clr Calc Pharmacy 89.4358; Globulin 3.3 g/dL (1.3-4.6); Glomerular Filtration Rate 79.8 mL/min (90-130); Glucose 155 mg/dL (65-115); Osmolality Calculated 285 mOsm/kg (285-295); Potassium 4.2 mmol/L (3.5-5.1); Sodium 136 mmol/L (136-145); Total Bilirubin 0.2 mg/dL (0.15-1.2); Total Protein 7.2 g/dL (6.6-8.7)
--- NOTE | 2023-08-27 19:37 | ED_ITS ---
HPI - URI/Sore Throat 2 General: Chief Complaint: Upper Respiratory Infection Stated Complaint: COUGHING UP BLOOD Time Seen by Provider: 08/27/23 18:17 History of Present Illness: 48-year-old male who lives in an [facility]. He evidently had an episode of hemoptysis this afternoon. He coughed up clotted blood, approximately one quarter or a bit bigger in size. No more hemoptysis following. He denies chest pain. Denies fever. He says his he has perhaps had a mild cough. He notes that he has had an ulceration in his left nose but has not noticed any nose bleeding at all. He is essentially asymptomatic at this point. He is not on anticoagulants. Associated symptoms: Deny abdominal pain, chills, chest pain, diarrhea, fever(s), headache(s), nausea or vomiting Review of Systems 2 Const: Denies: fever(s), chills or body aches Eyes: Denies: change in vision Card: Denies: chest pain or palpitations Resp: Denies: dyspnea or wheezing GI: Denies: abdominal pain, nausea, vomiting, diarrhea or hematochezia Skin/Breast: Denies: rash Neuro: Denies: headache(s), weakness in extremities, dizziness or confusion PFSH ED 2 PFSH: Medical History Urolithiasis Urinary hesitancy Chronic pain Right ureteral calculus Opioid use disorder, moderate, dependence Family History Father , UNKNOWN AGE No problems noted. Mother , AT AGE 74 Lung disease Diabetes CHF (congestive heart failure) Other CAD (coronary artery disease) Cancer Social History Smoking and tobacco/nicotine status: current every day tobacco/nicotine user cigarettes Packs smoked per day: 0.25 Years cigarettes smoked: 24 Quit status (tobacco/nicotine): has tried quititng Number of times tried to quit tobacco: 2 Second hand smoke exposure: Yes Alcohol intake: former Year of sobriety/quit date alcohol: 2020 Substance/Drug Use: current Other substance/drug use details: CBD- oil. Housing: Assisted Living Facility Marital status: Legally Current occupational status: disabled Current gender identity: Male Physical Exam 2 Const: COMMON NORMALS: no acute distress GENERAL APPEARANCE: cooperative; not ill appearing and not frail appearing HENMT: COMMON NORMALS: normocephalic, atraumatic and Normal external nose present HEAD & SCALP: normocephalic and atraumatic FACE & SINUS: normal facial exam and face symmetric NOSE: Normal external nose present and Other nasal findings present (Small nonbleeding ulceration left nare) THROAT: p osterior oropharynx normal; no postnasal drainage Eye: COMMON NORMALS: Equal, round and reactive pupils present and EOMs intact bilaterally PUPIL: Yes Equal, round and reactive pupils present Neck/C-Spine: GENERAL: Yes trachea midline Chest: CHEST: Yes Symmetrical chest wall rise Resp: COMMON NORMALS: normal respiratory effort, No retractions, No use of accessory muscles and clear to auscultation bilaterally AUSCULTATION: clear to auscultation bilaterally Cardio: COMMON NORMALS: regular rate and regular rhythm RATE: regular rate RHYTHM: regular rhythm GI: COMMON NORMALS: Normal to inspection, nondistended, normoactive bowel sounds present Extremity: COMMON NORMALS: no pedal edema Neuro: AUDELIA COMA SCALE: document GCS findings Audelia coma scale eye opening: Spontaneous [place] coma scale verbal response: Orientated Audelia coma scale motor response: Obey commands [place] coma scale total score: 15 S ENSORY EXAM: Yes extremities (intact) Psych: COMMON NORMALS: speech normal SPEECH: Yes normal speech Skin: COMMON NORMALS: no rashes or lesions noted GENERAL SKIN EXAM: no rashes or lesions noted Course 2 Vital Signs: Vital signs: Vital Signs Temperature 98.1 F 08/27/23 18:14 Pulse Rate 66 08/27/23 21:06 Respiratory Rate 16 08/27/23 21:06 Blood Pressure 156/96 08/27/23 21:06 Pulse Oximetry 94 08/27/23 21:06 Oxygen Delivery Me thod Room Air 08/27/23 18:24 MDM - URI/Sore Throat Medical Decision Making This patient is asymptomatic currently. His white blood cell count is 12.4. He has a blood sugar 155. Laboratory also shows an significantly elevated D-dimer at 1.5. His chest x-ray is negative. This raises concern for potential pulmonary embolus given history of hemoptysis although he is nontachycardic and nonhypoxic. He is definitely not unstable. No other source of hemorrhage is noted. 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 He does not believe he has had contrast since that time. [facility] We will perform Dopplers. We will choose not to anticoagulate at this point given his stable condition currently and the fact that we have no bleeding source, which could potentially worsen with anticoagulation. We will inquire about VQ scan in the morning. Observation for now. Hospitalist will see the patient. Dopplers are negative. Lab Data 08/27/23 19:00 08/27/23 19:00 Radiology Impressions Chest X-Ray 08/27/23 18:42 IMPRESSION: 1. No acute cardiopulmonary abnormality. Laboratory Results WBC 12.43 10^3/uL (3.29-11.43) H 08/27/23 19:00 RBC 4.30 10^6/uL (3.85-5.65) 08/27/23 19:00 Hgb 12.20 g/dL (11.27-16.99) 08/27/23 19:00 Hct 37.4 % (37-53) 08/27/23 19:00 MCV 87.0 fl (82-101) 08/27/23 19:00 MCH 28.4 pg (27-33) 08/27/23 19:00 MCHC 32.6 g/dL (30-55) 08/27/23 19:00 RDW 12.2 % (12.1-15.1) 08/27/23 19:00 Plt Count 284 10^3/cmm (157-399) 08/27/23 19:00 MPV 9.1 fL (7.4-10.4) 08/27/23 19:00 Neut % (Auto) 87.0 % 08/27/23 19:00 Lymph % (Auto) 6.4 % 08/27/23 19:00 [place] % (Auto) 4.6 % 08/27/23 19:00 Eos % (Auto) 0.1 % 08/27/23 19:00 Baso % (Auto) 0.1 % 08/27/23 19:00 Neut # (Auto) 10.82 10^3/uL (1.8-7.7) H 08/27/23 19:00 Lymph # (Auto) 0.8 10^3/uL (0.8-4.8) 08/27/23 19:00 [place] # (Auto) 0.6 10^3/uL (0.2-0.9) 08/27/23 19:00 Eos # (Auto) 0.0 10^3/uL (0.0-0.8) 08/27/23 19:00 Baso # (Auto) 0.0 10^3/uL (0.0-0.1) 08/27/23 19:00 Nucleated RBC % (auto) 0 % 08/27/23 19:00 Nucleated RBCs # 0.0 /100WBC 08/27/23 19:00 D-Dimer 1.52 ug/mLFEU (0-0.59) H 08/27/23 19:00 Sodium 136 mmol/L (136-145) 08/27/23 19:00 Potassium 4.2 mmol/L (3.5-5.1) 08/27/23 19:00 Chloride 103 mmol/L (98-107) 08/27/23 19:00 Carbon Dioxide 23 mmol/L (22-29) 08/27/23 19:00 Anion Gap 14.2 (5-19) 08/27/23 19:00 BUN 13 mg/dL (6-20) 08/27/23 19:00 Creatinine 1.0 mg/dL (0.7-1.2) 08/27/23 19:00 GFR Calculation 79.8 mL/min (90-130) L 08/27/23 19:00 Glucose 155 mg/dL (65-115) H 08/27/23 19:00 Calculated Osmolality 285 mOsm/kg (285-295) 08/27/23 19:00 Calcium 8.7 mg/dL (8.5-10.5) 08/27/23 19:00 Total Bilirubin 0.2 mg/dL (0.15-1.2) 08/27/23 19:00 AST 23 U/L (0-40) 08/27/23 19:00 ALT 19 U/L (0-41) 08/27/23 19:00 Alkaline Phosphatase 83 U/L (40-130) 08/27/23 19:00 Total Protein 7.2 g/dL (6.6-8.7) 08/27/23 19:00 Albumin 3.9 g/dL (3.5-5.2) 08/27/23 19:00 Globulin 3.3 g/dL (1.3-4.6) 08/27/23 19:00 All radiology interpretation(s) finalized by discharge Discharge Plan Discharge Patient Disposition: Placed in Observation Admit Provider: Greg Graves Clinical Impression: Hemoptysis, Elevated d-dimer Coding Level of Care Code ED Director Of Food And Nutrition for Isaias Pyle
--- NOTE | 2023-08-27 20:02 | USR_ITS ---
PROCEDURE INFORMATION: Exam: US Duplex Lower Extremity Veins, Bilateral Exam date and time: 08/27/2023 9:07 PM Age: 48 years old Clinical indication: Abnormal findings; Abnormal lab test; Elevated d-dimer; Additional info: Elevated d dimer, hemoptysis TECHNIQUE: Imaging protocol: Real-time duplex ultrasound of the bilateral extremities with 2-D obregon scale, color Doppler flow and spectral waveform analysis including responses to compression and other maneuvers (when performed) with image documentation. Complete exam focused on the lower extremity veins. COMPARISON: CT kidney stone [id number] 06/01/2021 10:53 AM FINDINGS: Right deep veins: The common femoral, femoral, proximal profunda femoral and popliteal veins are patent without evidence of thrombus and demonstrate normal waveforms. Visualized deep calf veins are patent. Left deep veins: The common femoral, femoral, proximal profunda femoral and popliteal veins are patent without evidence of thrombus and demonstrate normal waveforms. Visualized deep calf veins are patent. Superficial veins: Bilateral saphenofemoral junctions are patent without thrombus. No evidence of thrombophlebitis. Soft tissues: No evidence of fluid collection. US/CV venous duplex [facility] [id number] IMPRESSION: 1. No sonographic evidence of deep venous thrombosis in either lower extremity.
--- NOTE | 2023-08-27 21:44 | P.HP_ITS ---
Providers/Chief Complaint 2 Admitting Physician: Greg Graves Primary Care Provider: Luz Maria Peralta DO Chief Complaint: COUGHING UP BLOOD History of Present Illness Devonte Roberts is a 48 year old male comes in after hemoptysis earlier this afternoon, spitting up initially blood mixed with some phlegm, but states of second time with mónica blood. No recurrence so far. He denies any symptoms of bronchitis or respiratory infection. In ER is noted to have some leukocytosis 12.4, afebrile, without tachycardia, saturating in mid 90s on room air. Without suggestion of pneumonia. D-dimer was obtained and is abnormal at 1.52. Nasal exam revealed a small shallow ulceration without active bleeding. He denies epistaxis. Denies chest pain or pressure, no dyspnea exertion, cough, lower extremity swelling. Denies any dyspnea, respiratory symptoms, sweats, fever, chills, weight loss or other symptoms suggestive of TB. He is a former smoker Review of Systems 2 Const: Denies: fever(s), chills, body aches or malaise Eyes: Denies: change in vision ENMT: Denies: throat pain Card: Denies: chest pain, edema, pre-syncope or dyspnea on exertion Resp: Reports: hemoptysis; Denies: dyspnea, productive cough or change in phlegm color GI: Denies: abdominal pain, nausea, vomiting, diarrhea, constipation, hematochezia or melena : Denies: flank pain, difficulty urinating, urinary frequency or hematuria Musc: Denies: back pain, joint swelling or joint redness Skin/Breast: Denies: rash or new lesions Neuro: Denies: headache(s) or confusion Medications/Allergies Home Medications Medication Instructions Recorded Confirmed Last Taken Type albuterol sulfate 90 mcg/actuation 2 puff inhalation Q6H PRN 08/08/19 06/12/23 Unknown History aerosol inhaler (ProAir HFA) Shortness Of Breath lacosamide 200 mg tablet (Vimpat) 200 mg PO BID #60 tabs 08/08/19 06/12/23 Unknown Rx topiramate 50 mg tablet 50 mg PO BID@07,20 08/08/19 06/12/23 Unknown History acetaminophen-caffeine 500 mg-65 See Rx Instructions .Route .COMPLEX 01/13/20 06/12/23 Unknown History mg tablet (Excedrin Tension Headache) polyethylene glycol 3350 17 gram 17 g PO DAILY PRN constipation 12/30/20 06/12/23 Unknown History oral powder packet bismuth subsalicylate 262 mg/15 mL See Rx Instructions .Route .COMPLEX 01/27/21 06/12/23 Unknown History oral suspension (Pepto-Bismol) ibuprofen 800 mg tablet 800 mg PO Q8H PRN Pain 05/24/21 06/12/23 Unknown History aluminum-mag hydroxide-simethicone 15 ml PO Q8H PRN upset stomach 06/14/21 06/12/23 Unknown History 200 mg-200 mg-20 mg/5 mL oral susp irbesartan 300 mg tablet 300 mg PO DAILY@20 06/14/21 06/12/23 Unknown History fluticasone propionate 50 2 spray intranasal DAILY 08/16/21 06/12/23 Unknown History mcg/actuation nasal spray,suspension (Allergy Relief (fluticasone)) guaifenesin 600 mg tablet, 600 mg PO BID PRN cough 11/05/21 06/12/23 Unknown History extended release 12 hr (Mucinex) metoprolol succinate 50 mg 100 mg PO DAILY@07 11/05/21 06/12/23 Unknown History tablet,extended release 24 hr methocarbamol 500 mg tablet 500 mg PO TID PRN 01/25/22 06/12/23 Unknown History azelastine 137 mcg (0.1 %) nasal 2 spray intranasal BID 06/15/22 06/12/23 Unknown History spray aerosol hydralazine 100 mg tablet 100 mg PO TID 06/15/22 06/12/23 Unknown History levocetirizine 5 mg tablet 5 mg PO .HS 06/15/22 06/12/23 Unknown History lidocaine 5 % topical cream 1 applic topical QID 06/15/22 06/12/23 Unknown History solifenacin 5 mg tablet (Vesicare) 5 mg PO DAILY 06/15/22 06/12/23 Unknown History omeprazole 40 mg capsule,delayed 40 mg PO DAILY 12/06/22 06/12/23 Unknown History release tramadol 50 mg tablet 50 mg PO BID PRN 12/06/22 06/12/23 Unknown History buspirone 7.5 mg tablet 7.5 mg PO BID #60 tabs 06/12/23 06/12/23 Unknown Rx fluoxetine 20 mg capsule 60 mg (3 x 20 mg) PO DAILY@07 #90 06/12/23 06/12/23 Unknown Rx caps hydroxyzine HCl 50 mg tablet 50 mg PO QID PRN anxiety or 06/12/23 06/12/23 Unknown Rx agitation #120 tabs nortriptyline 50 mg capsule 50 mg PO BEDTIME@20 #30 caps 06/12/23 06/12/23 Unknown Rx trazodone 100 mg tablet 400 mg (4 x 100 mg) PO BEDTIME PRN 06/12/23 06/12/23 Unknown Rx insomnia #120 tabs chlorpromazine 25 mg tablet 25 mg PO BID@07,19 #60 tabs 07/05/23 Unknown Rx Allergies Allergy/AdvReac Type Severity Reaction Status Date / Time Iodinated Contrast Media Allergy Severe Coded: Verified 08/27/23 18:17 heart stopped Penicillins Allergy Intermediate Rash Verified 08/27/23 18:17 sulfamethoxazole Allergy Unknown Unkown Verified 08/27/23 18:17 [From ] trimethoprim [From ] Allergy Unknown Unkown Verified 08/27/23 18:17 suboxone AdvReac Intermediate Rash Uncoded 08/27/23 18:17 PFSH Acute 2 PFSH: Medical History Low back pain Hypertension Chronic migraine without aura, intractable, with status migrainosus Complex partial epilepsy Urolithiasis Urinary hesitancy Chronic pain Right ureteral calculus Opioid use disorder, moderate, dependence Surgical History History of orthopedic surgery Hx of knee surgery bilateral arthroscopic Family History Father , UNKNOWN AGE No problems noted. Mother , AT AGE 74 Lung disease Diabetes Congestive heart failure (CHF) Other CAD (coronary artery disease) Cancer Social History Smoking and tobacco/nicotine status: current every day tobacco/nicotine user cigarettes Packs smoked per day: 0.25 Years cigarettes smoked: 24 Quit status (tobacco/nicotine): has tried quititng Number of times tried to quit tobacco: 2 Second hand smoke exposure: Yes Alcohol intake: former Year of sobriety/quit date alcohol: 2020 Substance/Drug Use: current Other substance/drug use details: CBD- oil. Housing: Assisted Living Facility Marital status: Legally Current occupational status: disabled Current gender identity: Male Vitals/I&O/Wt Last Vital Signs Temp 98.1 F 08/27/23 18:14 Pulse 66 08/27/23 21:06 Resp 16 08/27/23 21:06 BP 156/96 08/27/23 21:06 Pulse Ox 94 08/27/23 21:06 O2 Del Method Room Air 08/27/23 18:24 Weight last 48 hrs Weight 86.183 kg Physical Exam 2 Const: COMMON NORMALS: patient oriented x3 and alert GENERAL APPEARANCE: c ooperative ORIENTATION/CONSCIOUSNESS: Yes awake HENMT: COMMON NORMALS: oropharynx normal Neck/C-Spine: COMMON NORMALS: no JVD Resp: COMMON NORMALS: normal respiratory effort and clear to auscultation bilaterally AUSCULTATION: clear to auscultation bilaterally Cardio: COMMON NORMALS: no JVD, regular rhythm, S1 normal heart sound present, S2 normal heart sound present and No murmurs present (Cardio) RHYTHM: regular rhythm HEART SOUNDS: S1 normal heart sound present and S2 normal heart sound present GI: COMMON NORMALS: Normal to inspection, nondistended, normoactive bowel sounds present, Soft to palpation and non-tender PALPATION: Yes Soft to palpation Extremity: COMMON NORMALS: no joint enlargement and no pedal edema Neuro: COMMON NORMALS: patient oriented x3 and moves all extremities S ENSORIUM/ORIENTATION: Yes alert Skin: COMMON NORMALS: no rashes or lesions noted GENERAL SKIN EXAM: no rashes or lesions noted Data 08/27/23 19:00 08/27/23 19:00 A&P Assessment and plan (1) Hemoptysis: Spat up blood today, first time it was mixed with some phlegm, but second time it was mónica blood. So far without recurrence. Denies any epistaxis, no cough or shortness of breath, no chest pain or pressure, no lower extremity edema. Shallow intranasal ulceration found in ER without active bleeding. Elevated D- dimer. Reviewed vitals, CBC, D-dimer, CMP, chest x-ray, venous duplex. Reviewed ER note, discussed with ER provider considering further options. Discussed with patient considering options, alternatives, benefits and risks of additional assessment, management. Unclear cause of hemoptysis at current time. Does not appear to have symptoms suggestive of bronchitis. Consideration possibly of PE, saturation 94% on room air, he is otherwise without tachycardia, without hemodynamic instability. No other symptoms. Venous duplex obtained, negative for DVT. He had cardiac arrest reportedly after receiving iodinated contrast for a CT scan in the past, due to this contrast is avoided. VQ scan is requested. He is a former smoker. Obtain CT of the chest as well. In the meantime consideration was given to anticoagulation, but due to hemoptysis and lack of convincing evidence for PE and risk of bleeding with anticoagulation as per discussion of options consensus for now with patient and ER physician is not to start anticoagulation. Reassess hemoptysis. Check INR. He denies taking aspirin or any blood thinners. Would hold tramadol and trazodone. (2) Elevated d-dimer: VQ scan is requested for additional assessment for possible PE. Cardiac arrest with IV iodinated contrast in the past. Elliott duplex negative for DVT. Requesting telemetry monitoring for any A-fib. Plan Hypertension: Cardiac diet. Monitor blood pressure. Requesting to confirm his home medications. Complex partial epilepsy history History of urolithiasis: Currently asymptomatic History of low back pain Other medical problems Attestations 2 Medical Necessity Statement*: Place in observation for additional assessment of new hemoptysis with mónica blood, abnormal D-dimer with severe allergy to contrast dye with cardiac arrest in the past, smoking history. , High MDM includes amount and/or complexity of data reviewed/ordered [ previous or external records, resulted lab(s)/test(s), ordered lab(s)/test(s) and other healthcare professional discussion] as documented and Moderate Time for a total of 85 minutes, includes reviewing past or interval history, examining/interviewing patient, placing orders, counseling patient/family/other support, discussing plan of care with staff, communicating with other healthcare providers, documenting encounter and coordinating care Diagnoses Hemoptysis R04.2 Elevated d-dimer R79.89
[2023-08-28] MEDS: BuSPIRONE 10 mg Tablet 7.5 MG PO ×2 (00:13→08:31)
[2023-08-28] MEDS: lacosamide 50 mg Tablet 200 MG PO ×2 (00:14→09:21)
[2023-08-28] MEDS: predniSONE 10 mg Tablet PO ×2 (00:14→08:31)
[2023-08-28] MEDS: hyDRALAzine 50 mg Tablet 100 MG PO ×3 (00:14→13:57)
[2023-08-28] MEDS: nortriptyline 25 mg Capsule 50 MG PO (00:14)
[2023-08-28] MEDS: chlorPROMazine 25 mg Tablet PO ×2 (00:14→08:30)
[2023-08-28 04:00] VITALS: BP 119/71; PULSE 57; RESP 16; TEMP 36.6; O2SAT 94
[2023-08-28] MEDS: metoprolol succinate ER (24 HR) 50 mg Tablet PO (06:09)
[2023-08-28] MEDS: topiramate 25 mg Tablet 50 MG PO (06:09)
[2023-08-28 06:43] LABS: Basophils # 0.1 10^3/uL (0.0-0.1); Basophils % 0.4 %; Eosinophils # 0.1 10^3/uL (0.0-0.8); Eosinophils % 0.5 %; Hematocrit 37.7 % (37-53); Lymphocytes # 1.3 10^3/uL (0.8-4.8); Lymphocytes % 10.1 %; Mean Corpuscular Hemoglobin 28.5 pg (27-33); Mean Platelet Volume 9.4 fL (7.4-10.4); Monocytes # 0.9 10^3/uL (0.2-0.9); Neutrophils # 10.13 10^3/uL (1.8-7.7); Neutrophils % 80.1 %; Nucleated Red Blood Cells % 0 %; Platelet Count 294 10^3/cmm (157-399); Red Cell Distribution Width 12.2 % (12.1-15.1); White Blood Count 12.65 10^3/uL (3.29-11.43)
[2023-08-28 06:58] LABS: INR 0.97 (0.8-1.2)
--- NOTE | 2023-08-28 07:28 | P.PN_ITS ---
Subjective 2 Subjective: seen this morning denies any further episodes of hemoptysis awaiting VQ scan this AM hemoglobin stable Vitals/I&O/Wt Last Vital Signs Temp 97.9 F 08/28/23 04:00 Pulse 57 L 08/28/23 04:00 Resp 16 08/28/23 04:00 BP 119/71 08/28/23 04:00 Pulse Ox 94 08/28/23 04:00 O2 Del Method Room Air 08/28/23 04:00 08/27/23 08/28/23 08/28/23 22:59 06:59 14:59 Intake Total 240 / 240 Balance 240 / 240 Weight last 48 hrs Weight 86.319 kg Weight 86.183 kg Weight 86.183 kg Physical Exam 2 Const: COMMON NORMALS: patient oriented x3 and alert GENERAL APPEARANCE: c ooperative ORIENTATION/CONSCIOUSNESS: Yes awake HENMT: COMMON NORMALS: oropharynx normal Neck/C-Spine: COMMON NORMALS: no JVD Resp: COMMON NORMALS: normal respiratory effort and clear to auscultation bilaterally AUSCULTATION: clear to auscultation bilaterally Cardio: COMMON NORMALS: no JVD, regular rhythm, S1 normal heart sound present, S2 normal heart sound present and No murmurs present (Cardio) RHYTHM: regular rhythm HEART SOUNDS: S1 normal heart sound present and S2 normal heart sound present GI: COMMON NORMALS: Normal to inspection, nondistended, normoactive bowel sounds present, Soft to palpation and non-tender PALPATION: Yes Soft to palpation Extremity: COMMON NORMALS: no joint enlargement and no pedal edema Neuro: COMMON NORMALS: patient oriented x3 and moves all extremities S ENSORIUM/ORIENTATION: Yes alert Skin: COMMON NORMALS: no rashes or lesions noted GENERAL SKIN EXAM: no rashes or lesions noted Data 08/28/23 05:04 08/27/23 19:00 A&P Assessment and plan (1) Hemoptysis: Spat up blood today, first time it was mixed with some phlegm, but second time it was mónica blood. So far without recurrence. Denies any epistaxis, no cough or shortness of breath, no chest pain or pressure, no lower extremity edema. Shallow intranasal ulceration found in ER without active bleeding. Elevated D- dimer. Reviewed vitals, CBC, D-dimer, CMP, chest x-ray, venous duplex. Reviewed ER note, discussed with ER provider considering further options. Discussed with patient considering options, alternatives, benefits and risks of additional assessment, management. Unclear cause of hemoptysis at current time. Does not appear to have symptoms suggestive of bronchitis. Consideration possibly of PE, saturation 94% on room air, he is otherwise without tachycardia, without hemodynamic instability. No other symptoms. Venous duplex obtained, negative for DVT. He had cardiac arrest reportedly after receiving iodinated contrast for a CT scan in the past, due to this contrast is avoided. VQ scan is requested. He is a former smoker. Obtain CT of the chest as well. In the meantime consideration was given to anticoagulation, but due to hemoptysis and lack of convincing evidence for PE and risk of bleeding with anticoagulation as per discussion of options consensus for now with patient and ER physician is not to start anticoagulation. Reassess hemoptysis. Check INR. He denies taking aspirin or any blood thinners. Would hold tramadol and trazodone. (2) Elevated d-dimer: VQ scan is requested for additional assessment for possible PE. Cardiac arrest with IV iodinated contrast in the past. Elliott duplex negative for DVT. Requesting telemetry monitoring for any A-fib. Plan Hypertension: Cardiac diet. Monitor blood pressure. Requesting to confirm his home medications. Complex partial epilepsy history History of urolithiasis: Currently asymptomatic History of low back pain Other medical problems Todays Plan 08/28/2023 Awaiting VQ scan today Continue to monitor Hemoglobin Management as per above listed HnP document Attestations 2 Medical Necessity Statement*: Needs workup of hemoptysis, VQ scan pending. Further decision making based on pending test results. Diagnoses Hemoptysis R04.2 Elevated d-dimer R79.89
[2023-08-28 07:53] VITALS: BP 135/79; PULSE 50; RESP 18; TEMP 36.6; O2SAT 94
[2023-08-28] MEDS: spironolactone 25 mg Tablet PO (08:31)
[2023-08-28] MEDS: pantoprazole DR 40 mg Tablet PO (08:31)
--- NOTE | 2023-08-28 09:15 | PC.CHAP ---
Pastoral Care Encounter/Spiritual Assessment Type of Contact [] Declined letter of credit clerk visit [] Patient/Family/Request visit [] Outpatient visit [] Follow-up visit [] Physician referral [] Code/Alert [x] Routine visit [] Staff referral [] Actively dying [x] Patient sleeping [] Family support [] [] Out of room [] Palliative care [] [] Receiving care in room [] Pre-surgical visit [] Trauma [] Long length of stay [] ICU visit [] Other: Relational/Emotional Strength [] Patient feels connected with others/family/visitors/staff [] Distress [] Loneliness/isolation [] Abandonment Spirituality of Patient [] Person of Kimberlyn [] Attends Faith of their Kimberlyn [] Believes in Prayer [] Reads Bible or Mosque materials [] There are Spiritual issues to be addressed St[employer]cher [employer] Interventions [x] Prayer [] Active listening [] Non-anxious presence [] Spiritual/emotional support [] Crisis/trauma care [] Spiritual counseling [] Bereavement support [] Provided bereavement packet [] Provided Bible/devotional materials [] Provided toy/stuffed animal, coloring book to patient or family member [] Provided Communion [] Anointing/Mexia [] Salvation [] Completed spiritual assessment [] Other: Impact on Illness or Injury [] Angry [] Fearful [] Anxious [] Often cries [] Exhaustion [] Unable to work [] Unable to attend anglican [] Unable to walk/stand [] Unable to read [] Unable to drive [] Unable to eat/drink [] Unable to sleep [] Unable to be with family [] Patient intubated [] Other: Summary Time spent with patient
--- NOTE | 2023-08-28 09:30 | NM_ITS ---
WS: [id number] NUCLEAR MEDICINE VENTILATION/PERFUSION LUNG SCAN HISTORY: assess for PE COMPARISON: Chest radiograph 08/27/2023 TECHNIQUE: Ventilation: 30.6 mCi of Technetium 99 DTPA aerosol inhaled. Perfusion: 5.5 mCi of technetium 99m MAA IV. Central deposition of radionuclide on the ventilatory portion. There are no matched defects. No unmat ched defect is identified. The heart is large. NM/NM pul vent and perfus* [id number] IMPRESSION: Low probability of pulmonary embolism.
--- NOTE | 2023-08-28 09:30 | CT_ITS ---
WS: [id number] CT chest wo con [id number] HISTORY: hemoptysis TECHNIQUE: Axial imaging performed through the thorax. Coronal and sagittal reformats are submitted. All CT scans at [facility] use at least one of these dose optimization techniques: automated exposure control; mA and/or kV adjustment per patient size (includes targeted exams where dose is mat ched to clinical indication); or iterative reconstruction. CONTRAST: Omnipaque 350; 100 mL IV. DLP: 465.96 mGy.cm COMPARISON: Radiograph 08/27/2023 Lungs and central airway: Well aerated lungs. No pneumonia. No bronchiectasis. No pneumonia or mass. No pleural effusion. Pleura: Normal. No pleural effusion. Heart and pericardium: Normal size heart with no pericardial effusion. Mediastinum and bandar: No mediastinum or hilar adenopathy. Vessels: Normal size aortic and pulmonary artery. No coronary artery calcifications. Chest wall and lower neck: No soft tissue masses. Upper abdomen: No abnormality in the upper abdomen. No oral contrast in the stomach. Osseous structures: No destructive process. CT/CT chest wo con [id number] IMPRESSION: 1. No pulmonary mass or pneumonia. 2. No endobronchial lesions or bronchiectasis identified. 3. No adenopathy or pleural effusion.
--- NOTE | 2023-08-28 11:01 | PC.NURSE ---
off unit for vq scan
[2023-08-28 12:39] VITALS: BP 132/76; PULSE 52; RESP 19; TEMP 36.4; O2SAT 96
--- NOTE | 2023-08-28 13:58 | PM.DCS ---
Discharge Providers Date of Admission: 08/27/23 20:57 Date of Discharge: August 28, 2023 Attending Provider at Admission: Greg Graves Attending Provider at Discharge: Mellisa Treviño MD Primary Care Provider: Luz Maria Peralta DO Diagnoses at Discharge Discharge Diagnosis (1) Hemoptysis: Status: Resolved (2) Elevated d-dimer: Status: Acute Reason for Visit Reason for Visit: COUGHING UP BLOOD Hospital Course Hospital Course 48-year-old male presented with hemoptysis. Upon questioning he stated that it was pea-sized the size of half a dime. It only happened 1 time however because it was bright red he decided to come to the hospital. He did have a shallow ulcer without any active bleeding in his nose. Denies any epistaxis. D-dimer was abnormal at 1.52. Patient has anaphylactic reaction to iodinated contrast therefore VQ scan was pursued which was low probability for pulmonary embolism. Venous Dopplers were negative for DVT as well. Patient did not have any further episodes of hemoptysis since admission. Vitals were stable, labs are stable. Hemoglobin stable. Discharged home in stable condition. Physical Exam Const: COMMON NORMALS: patient oriented x3 and alert GENERAL APPEARANCE: cooperative ORIENTATION/CONSCIOUSNESS: Yes awake HENMT: COMMON NORMALS: oropharynx normal Neck/C-Spine: COMMON NORMALS: no JVD Resp: COMMON NORMALS: normal respiratory effort and clear to auscultation bilaterally AUSCULTATION: clear to auscultation bilaterally Cardio: COMMON NORMALS: no JVD, regular rhythm, S1 normal heart sound present, S2 normal heart sound present and No murmurs present (Cardio) RHYTHM: regular rhythm HEART SOUNDS: S1 normal heart sound present and S2 normal heart sound present GI: COMMON NORMALS: Normal to inspection, nondistended, normoactive bowel sounds present, Soft to palpation and non-tender PALPATION: Yes Soft to palpation Extremity: COMMON NORMALS: no joint enlargement and no pedal edema Neuro: COMMON NORMALS: patient oriented x3 and moves all extremities SENSORIUM/ORIENTATION: Yes alert Skin: COMMON NORMALS: no rashes or lesions noted GENERAL SKIN EXAM: no rashes or lesions noted Discharge Data Studies Completed and Pending Completed Studies During Hospitalization Category Date Time Status CT chest wo con [id number] Routine Cat Scan 08/28/23 09:30 Completed XR chest 1V portable [id number] Stat Exams 08/27/23 18:42 Completed NM pul vent and perfus* [id number] Routine Nuc Med 08/28/23 09:30 Completed US venous duplex lower extremity bilat [CV venous Ultrasound 08/27/23 20:02 [place] [id number]] Stat Pending at discharge Category Date Time Status Complete Blood Count w/Auto AM LABS Lab 08/29/23 04:00 Ordered Complete Blood Count w/Auto AM LABS Lab 08/30/23 04:00 Ordered Radiology Impressions Chest X-Ray 08/27/23 18:42 IMPRESSION: 1. No acute cardiopulmonary abnormality. Venous Duplex 08/27/23 20:02 IMPRESSION: 1. No sonographic evidence of deep venous thrombosis in either lower extremity. Chest CT 08/28/23 09:30 IMPRESSION: 1. No pulmonary mass or pneumonia. 2. No endobronchial lesions or bronchiectasis identified. 3. No adenopathy or pleural effusion. Pulmonary Perfusion Imaging 08/28/23 09:30 IMPRESSION: Low probability of pulmonary embolism. Laboratory Results WBC 12.65 10^3/uL (3.29-11.43) H 08/28/23 05:04 RBC 4.10 10^6/uL (3.85-5.65) 08/28/23 05:04 Hgb 11.70 g/dL (11.27-16.99) 08/28/23 05:04 Hct 37.7 % (37-53) 08/28/23 05:04 MCV 92.0 fl (82-101) D 08/28/23 05:04 MCH 28.5 pg (27-33) 08/28/23 05:04 MCHC 31.0 g/dL (30-55) 08/28/23 05:04 RDW 12.2 % (12.1-15.1) 08/28/23 05:04 Plt Count 294 10^3/cmm (157-399) 08/28/23 05:04 MPV 9.4 fL (7.4-10.4) 08/28/23 05:04 Neut % (Auto) 80.1 % 08/28/23 05:04 Lymph % (Auto) 10.1 % 08/28/23 05:04 Rolette % (Auto) 7.0 % 08/28/23 05:04 Eos % (Auto) 0.5 % 08/28/23 05:04 Baso % (Auto) 0.4 % 08/28/23 05:04 Neut # (Auto) 10.13 10^3/uL (1.8-7.7) H 08/28/23 05:04 Lymph # (Auto) 1.3 10^3/uL (0.8-4.8) 08/28/23 05:04 Rolette # (Auto) 0.9 10^3/uL (0.2-0.9) 08/28/23 05:04 Eos # (Auto) 0.1 10^3/uL (0.0-0.8) 08/28/23 05:04 Baso # (Auto) 0.1 10^3/uL (0.0-0.1) 08/28/23 05:04 Nucleated RBC % (auto) 0 % 08/28/23 05:04 Nucleated RBCs # 0.0 /100WBC 08/28/23 05:04 PT 13.20 SECONDS (12.1-14.9) 08/28/23 05:04 INR 0.97 (0.8-1.2) 08/28/23 05:04 D-Dimer 1.52 ug/mLFEU (0-0.59) H 08/27/23 19:00 Sodium 136 mmol/L (136-145) 08/27/23 19:00 Potassium 4.2 mmol/L (3.5-5.1) 08/27/23 19:00 Chloride 103 mmol/L (98-107) 08/27/23 19:00 Carbon Dioxide 23 mmol/L (22-29) 08/27/23 19:00 Anion Gap 14.2 (5-19) 08/27/23 19:00 BUN 13 mg/dL (6-20) 08/27/23 19:00 Creatinine 1.0 mg/dL (0.7-1.2) 08/27/23 19:00 GFR Calculation 79.8 mL/min (90-130) L 08/27/23 19:00 Glucose 155 mg/dL (65-115) H 08/27/23 19:00 Calculated Osmolality 285 mOsm/kg (285-295) 08/27/23 19:00 Calcium 8.7 mg/dL (8.5-10.5) 08/27/23 19:00 Total Bilirubin 0.2 mg/dL (0.15-1.2) 08/27/23 19:00 AST 23 U/L (0-40) 08/27/23 19:00 ALT 19 U/L (0-41) 08/27/23 19:00 Alkaline Phosphatase 83 U/L (40-130) 08/27/23 19:00 Total Protein 7.2 g/dL (6.6-8.7) 08/27/23 19:00 Albumin 3.9 g/dL (3.5-5.2) 08/27/23 19:00 Globulin 3.3 g/dL (1.3-4.6) 08/27/23 19:00 Vitals Last Vital Signs Temp 97.5 F L 08/28/23 12:39 Pulse 52 L 08/28/23 12:39 Resp 19 H 08/28/23 12:39 BP 132/76 08/28/23 12:39 Pulse Ox 96 08/28/23 12:39 O2 Del Method Room Air 08/28/23 12:39 Discharge Plan Discharge Patient Disposition: Home Condition: Stable Prescriptions: Continued Excedrin Tension Headache 500-65 mg tablet See Rx Instructions .ROUTE .COMPLEX Rx Instructions: use as directed topiramate 50 mg tablet 50 mg PO BID@07,20 albuterol sulfate [ProAir HFA] 90 mcg/actuation HFA aerosol inhaler 2 puff INHALATION Q6H PRN (Reason: Shortness Of Breath) Vimpat 200 mg tablet 200 mg PO BID Qty: 60 5RF polyethylene glycol 3350 17 gram powder in packet 17 g PO DAILY PRN (Reason: constipation) bismuth subsalicylate [Pepto-Bismol] 262 mg/15 mL suspension See Rx Instructions .ROUTE .COMPLEX Rx Instructions: use as directed on bottle guaifenesin [Mucinex] 600 mg tablet extended release 12hr 600 mg PO BID PRN (Reason: cough) tramadol 50 mg tablet 50 mg PO BID PRN (Reason: Pain) fluticasone propionate [Allergy Relief (fluticasone)] 50 mcg/actuation spray,suspension 2 spray intranasal DAILY Rx Instructions: administer into each nostril methocarbamol 500 mg tablet 500 mg PO TID PRN (Reason: Pain) solifenacin [Vesicare] 5 mg tablet 5 mg PO DAILY hydralazine 100 mg tablet 100 mg PO QID levocetirizine 5 mg tablet 5 mg PO .HS lidocaine 5 % cream 1 applic topical QID omeprazole 40 mg capsule,delayed release(DR/EC) 40 mg PO DAILY buspirone 7.5 mg tablet 7.5 mg PO BID Qty: 60 2RF fluoxetine 20 mg capsule 60 mg PO DAILY@07 Qty: 90 2RF nortriptyline 50 mg capsule 50 mg PO BEDTIME@20 Qty: 30 2RF trazodone 100 mg tablet 400 mg PO BEDTIME PRN (Reason: insomnia) Qty: 120 2RF chlorpromazine 25 mg tablet 25 mg PO BID@07,19 Qty: 60 2RF diclofenac sodium 1 % Gel 4 g TOPICAL QID Rx Instructions: apply to single knee, ankle, foot; for foot includes sole/toes/top of foot Mucinex tablet 600 mg PO BID PRN (Reason: spasms) Mylanta Maximum Strength 12 oz PO Q8H PRN (Reason: upset stomach) Nicorette 4 mg PO Q1H Pepto-Bismol 30 ml PO DIRECTED PRN (Reason: upset stomach) Ventolin HFA 2 puff PO Q6H PRN (Reason: SOB) meloxicam 15 mg PO DAILY simethicone 125 mg PO PRN hydroxyzine HCl 50 mg tablet 25 mg PO BID PRN (Reason: anxiety or agitation) spironolactone 25 mg PO DAILY alum-mag hydroxide-simeth 200-200-20 mg/5 mL Suspension 15 ml PO Q8H PRN (Reason: upset stomach) irbesartan 300 mg Tablet 300 mg PO DAILY@20 metoprolol succinate 50 mg tablet extended release 24 hr 100 mg PO DAILY@07 Discontinued ibuprofen 800 mg tablet 800 mg PO Q8H PRN (Reason: Pain) azelastine 137 mcg (0.1 %) aerosol,spray 2 spray intranasal BID Rx Instructions: administer into each nostril Discharge Orders: Discharge Order (Routine); Ordered 08/28/23 Ordered By: Mellisa Treviño Referrals: Luz Maria Peralta DO [Primary Care Provider] - 08/30/23 11:20 am (This appointment is scheduled is Veena Maravilla. Please arrive 15 miutes prior to appointment and please bring your discharge paperwork. ) Discharge Diet: Cardiac Discharge Activity: Resume usual activity Patient Instructions: Hemoptysis, Opioid Safety Discharge Attestations Time Spent in Discharge Care*: less than 30 min Quality Metrics Clinical Quality Measures [ No reported AMI, CVA or VTE this stay] Coding Level of Care Code 43099 Total time (in minutes) for Discharge: 20 Diagnoses Hemoptysis R04.2 Elevated d-dimer R79.89
--- NOTE | 2023-08-28 15:56 | PC.NURSE ---
Transportation Waiting for [facility] transport to give pt a ride.
== END 2023-08-28 16:42 | disposition home or self-care (01) ==
LOC: ER 20:13 → MEDSURG 20:57
PROVIDERS: Admitting Provider Internal Medicine; Emergency Provider Emergency Medicine; PCP Family Medicine; Visit Provider Internal Medicine
DX: R04.2 Hemoptysis (principal); R79.89 Other specified abnormal findings of blood chemistry; I10 Essential (primary) hypertension; F17.210 Nicotine dependence, cigarettes, uncomplicated
CPT/HCPCS: 36415; 71045; 71250; 78014; 80053; 85025; 85378; 85610; 93970; 99285; A9540; A9567; G0378; J7512; Q0161

== ENCOUNTER 2023-10-22 17:10 | Emergency (ER) | payer MEDICAID, SELFPAY ==
--- NOTE | 2023-10-22 17:15 | ECG_ITS ---
[facility] Test Date: 2023-10-22 Pat Name: Devonte Roberts Department: Room: Gender: Male [employer]: : 1975 Requested By: Giuliana Persno Order Number: [id number] Arpita MD: Ryan Archibald M.D. Measurements Intervals Brick Rate: 88 P: 30 LA: 182 QRS: -7 QRSD: 110 T: 48 QT: 380 QTc: 462 Interpretive Statements SINUS RHYTHM Compared to ECG 03/28/2021 18:25:53 T-wave abnormality no longer present Electronically Signed On 10-23-2023 7:54:25 CDT by Ryan Archibald M.D. [id number]
[2023-10-22 17:17] VITALS: BP 166/104; PULSE 89; RESP 20; TEMP 37.1; O2SAT 94
--- NOTE | 2023-10-22 17:18 | XRR_ITS ---
PROCEDURE INFORMATION: Exam: XR Chest Exam date and time: 10/22/2023 5:47 PM Age: 48 years old Clinical indication: Chest pressure; Patient HX: Chest pain TECHNIQUE: Imaging protocol: Radiologic exam of the chest. Views: 1 view. COMPARISON: CT chest con [id number] 08/28/2023 9:52 AM FINDINGS: Lungs: No consolidation. Pleural spaces: Unremarkable. No pleural effusion. No pneumothorax. Heart/Mediastinum: Cardiomegaly. Bones/joints: Unremarkable. XR/XR chest 1V portable [id number] IMPRESSION: No acute pulmonary findings. Cardiomegaly.
--- NOTE | 2023-10-22 17:23 | ED_ITS ---
Documented by User: Giuliana Person MD 10/22/23 17:29 HPI - Chest Pain 2 General: Chief Complaint: Chest Pain Stated Complaint: chest pain Time Seen by Provider: 10/22/23 17:18 Source: patient Mode of arrival: ambulatory Limitations: no limitations History of Present Illness: 48-year-old male states has a history of anxiety states that he started having severe chest pain roughly 45 minutes ago. He states he had no improvement from nitro and the pain sharp seems to go to his neck and chest he rates the pain an 8 out of 10 currently denies any vomiting or diarrhea. Associated symptoms: Deny abdominal pain, dyspnea, fever(s), nausea or vomiting Review of Systems 2 Const: Denies: fever(s), chills, body aches or change in appetite ENMT: Denies: throat pain or dental pain Card: Reports: chest pain Resp: Denies: dyspnea GI: Denies: abdominal pain, nausea, vomiting or diarrhea Musc: Denies: neck pain or back pain Skin/Breast: Denies: rash Neuro: Denies: headache(s) PFSH ED 2 PFSH: Medical History Low back pain Hypertension Chronic migraine without aura, intractable, with status migrainosus Complex partial epilepsy Urolithiasis Urinary hesitancy Chronic pain Right ureteral calculus Opioid use disorder, moderate, dependence Surgical History History of orthopedic surgery Hx of knee surgery bilateral arthroscopic Family History Father , UNKNOWN AGE No problems noted. Mother , AT AGE 74 Lung disease Diabetes Congestive heart failure (CHF) Other CAD (coronary artery disease) Cancer Social History Smoking and tobacco/nicotine status: current every day tobacco/nicotine user cigarettes Packs smoked per day: 0.25 Years cigarettes smoked: 24 Quit status (tobacco/nicotine): has tried quititng Number of times tried to quit tobacco: 2 Second hand smoke exposure: Yes Alcohol intake: former Year of sobriety/quit date alcohol: 2020 Substance/Drug Use: current Other substance/drug use details: CBD- oil. Housing: Assisted Living Facility Marital status: Legally Current occupational status: disabled Current gender identity: Male Physical Exam 2 Const: COMMON NORMALS: no acute distress, patient oriented x3 and healthy appearing HENMT: COMMON NORMALS: normocephalic and atraumatic HEAD & SCALP: n ormocephalic and atraumatic Eye: COMMON NORMALS: Equal, round and reactive pupils present and EOMs intact bilaterally PUPIL: Yes Equal, round and reactive pupils present Neck/C-Spine: COMMON NORMALS: full ROM Chest: COMMONS NORMALS: normal inspection of the chest Resp: COMMON NORMALS: normal respiratory effort, No retractions, No use of accessory muscles and clear to auscultation bilaterally AUSCULTATION: clear to auscultation bilaterally Cardio: COMMON NORMALS: regular rate, regular rhythm and No murmurs present (Cardio) RATE: regular rate RHYTHM: regular rhythm GI: COMMON NORMALS: Normal to inspection, nondistended, normoactive bowel sounds present, Soft to palpation, non-tender and no masses PALPATION: Yes Soft to palpation Extremity: COMMON NORMALS: normal to inspection and full ROM Neuro: COMMON NORMALS: patient oriented x3, moves all extremities and no focal motor deficits Psych: COMMON NORMALS: mental status grossly normal, Normal thought process present and cooperative THOUGHT PROCESS: Normal thought process present Skin: COMMON NORMALS: no rashes or lesions noted and no wounds GENERAL SKIN EXAM: no rashes or lesions noted Course 2 Vital Signs: Vital signs: Vital Signs Temperature 98.8 F 10/22/23 17:17 Pulse Rate 88 10/22/23 19:36 Respiratory Rate 18 10/22/23 19:59 Blood Pressure 159/98 10/22/23 19:36 Pulse Oximetry 96 10/22/23 19:59 Oxygen Delivery Me thod Room Air 10/22/23 17:17 MDM - Chest Pain Medical Records I reviewed the patient's medical records. Lab Data I reviewed the patient's lab results. 10/22/23 16:58 10/22/23 16:58 Radiology Impressions Chest X-Ray 10/22/23 17:18 IMPRESSION: No acute pulmonary findings. Cardiomegaly. Laboratory Results WBC 13.02 10^3/uL (3.29-11.43) H 10/22/23 16:58 RBC 4.03 10^6/uL (3.85-5.65) 10/22/23 16:58 Hgb 12.10 g/dL (11.27-16.99) 10/22/23 16:58 Hct 35.8 % (37-53) L 10/22/23 16:58 MCV 88.8 fl (82-101) 10/22/23 16:58 MCH 30.0 pg (27-33) 10/22/23 16:58 MCHC 33.8 g/dL (30-55) 10/22/23 16:58 RDW 13.4 % (12.1-15.1) 10/22/23 16:58 Plt Count 324 10^3/cmm (157-399) 10/22/23 16:58 MPV 10.0 fL (7.4-10.4) 10/22/23 16:58 Neut % (Auto) 74.0 % 10/22/23 16:58 Lymph % (Auto) 13.4 % 10/22/23 16:58 Beaver % (Auto) 9.4 % 10/22/23 16:58 Eos % (Auto) 1.1 % 10/22/23 16:58 Baso % (Auto) 0.4 % 10/22/23 16:58 Neut # (Auto) 9.65 10^3/uL (1.8-7.7) H 10/22/23 16:58 Lymph # (Auto) 1.7 10^3/uL (0.8-4.8) 10/22/23 16:58 Beaver # (Auto) 1.2 10^3/uL (0.2-0.9) H 10/22/23 16:58 Eos # (Auto) 0.1 10^3/uL (0.0-0.8) 10/22/23 16:58 Baso # (Auto) 0.1 10^3/uL (0.0-0.1) 10/22/23 16:58 Nucleated RBC % (auto) 0 % 10/22/23 16:58 Nucleated RBCs # 0.0 /100WBC 10/22/23 16:58 Sodium 135 mmol/L (136-145) L 10/22/23 16:58 Potassium 3.5 mmol/L (3.5-5.1) 10/22/23 16:58 Chloride 99 mmol/L (98-107) 10/22/23 16:58 Carbon Dioxide 25 mmol/L (22-29) 10/22/23 16:58 Anion Gap 14.5 (5-19) 10/22/23 16:58 BUN 7 mg/dL (6-20) 10/22/23 16:58 Creatinine 0.9 mg/dL (0.7-1.2) 10/22/23 16:58 GFR Calculation 90.1 mL/min (90-130) 10/22/23 16:58 Glucose 113 mg/dL (65-115) 10/22/23 16:58 Calculated Osmolality 279 mOsm/kg (285-295) L 10/22/23 16:58 Calcium 8.6 mg/dL (8.5-10.5) 10/22/23 16:58 Total Bilirubin 0.3 mg/dL (0.15-1.2) 10/22/23 16:58 AST 17 U/L (0-40) 10/22/23 16:58 ALT 9 U/L (0-41) 10/22/23 16:58 Alkaline Phosphatase 74 U/L (40-130) 10/22/23 16:58 Troponin T Baseline 7 ng/L (0-15) 10/22/23 16:58 Troponin T 120 Minute 6.14 ng/L (0-15) 10/22/23 19:08 Delta Troponin T -0.86 ABS# (0-10) L 10/22/23 19:08 Total Protein 6.6 g/dL (6.6-8.7) 10/22/23 16:58 Albumin 3.8 g/dL (3.5-5.2) 10/22/23 16:58 Globulin 2.8 g/dL (1.3-4.6) 10/22/23 16:58 Lipase 19 U/L (13-60) 10/22/23 16:58 All radiology interpretation(s) finalized by discharge EKG Data EKG 1: I personally reviewed and interpreted this EKG as follows: EKG interpretation date: 10/22/23 EKG interpretation time: 17:15 Interpretation: nsr hr [address] elevation qrs 110 qtc 426 Discharge Plan Discharge Patient Disposition: Home Clinical Impression: Chest pain Condition: Stable Prescriptions: No Action Vimpat 200 mg tablet 200 mg PO BID Qty: 60 5RF polyethylene glycol 3350 17 gram powder in packet 17 g PO DAILY PRN (Reason: constipation) guaifenesin [Mucinex] 600 mg tablet extended release 12hr 600 mg PO BID PRN (Reason: cough) tramadol 50 mg tablet 50 mg PO BID PRN (Reason: Pain) trazodone 100 mg tablet 400 mg PO BEDTIME PRN (Reason: insomnia) Qty: 120 2RF nortriptyline 50 mg capsule 50 mg PO BEDTIME@20 Qty: 30 2RF buspirone 7.5 mg tablet 7.5 mg PO BID Qty: 60 2RF chlorpromazine 25 mg tablet 25 mg PO BID@07,19 Qty: 60 2RF fluoxetine 20 mg capsule 60 mg PO DAILY@07 Qty: 90 2RF folic acid 1 mg tablet 1 mg PO DAILY methotrexate sodium 2.5 mg tablet 2.5 mg PO .Weekly azelastine 137 mcg (0.1 %) aerosol,spray 2 spray intranasal BID Rx Instructions: administer into each nostril methocarbamol 500 mg tablet 500 mg PO TID PRN (Reason: Pain) solifenacin [Vesicare] 5 mg tablet 5 mg PO DAILY hydralazine 100 mg tablet 100 mg PO QID levocetirizine 5 mg tablet 5 mg PO .HS lidocaine 5 % cream 1 applic topical QID omeprazole 40 mg capsule,delayed release(DR/EC) 40 mg PO DAILY diclofenac sodium 1 % Gel 4 g TOPICAL QID Rx Instructions: apply to single knee, ankle, foot; for foot includes sole/toes/top of foot Mylanta Maximum Strength 12 oz PO Q8H PRN (Reason: upset stomach) Ventolin HFA 2 puff PO Q6H PRN (Reason: SOB) simethicone 125 mg PO PRN hydroxyzine HCl 50 mg tablet 25 mg PO BID PRN (Reason: anxiety or agitation) spironolactone 25 mg PO DAILY irbesartan 300 mg Tablet 300 mg PO DAILY@20 metoprolol succinate 50 mg tablet extended release 24 hr 100 mg PO DAILY@07 Discharge Orders: Discharge ED (Routine); Ordered 10/22/23 Ordered By: Jose M Stahl Referrals: Luz Maria Peralta DO [Primary Care Provider] - 4-7 days Patient Instructions: Chest Pain (ED), Opioid Safety, Pain Management Activity Restrictions/Additional Instructions: Return for worsening pain, shortness of breath, fever, other concerning symptoms. See your doctor next week. Coding Level of Care Code ED Ingot Weigher for Chg Fwd Documented by User: Jose M Stahl, 10/23/23 00:30 HPI - Chest Pain 2 General: Chief Complaint: Chest Pain Stated Complaint: chest pain Time Seen by Provider: 10/22/23 17:18 PFSH ED 2 PFSH: Medical History Low back pain Hypertension Chronic migraine without aura, intractable, with status migrainosus Complex partial epilepsy Urolithiasis Urinary hesitancy Chronic pain Right ureteral calculus Opioid use disorder, moderate, dependence Surgical History History of orthopedic surgery Hx of knee surgery bilateral arthroscopic Family History Father , UNKNOWN AGE No problems noted. Mother , AT AGE 74 Lung disease Diabetes Congestive heart failure (CHF) Other CAD (coronary artery disease) Cancer Social History Smoking and tobacco/nicotine status: current every day tobacco/nicotine user cigarettes Packs smoked per day: 0.25 Years cigarettes smoked: 24 Quit status (tobacco/nicotine): has tried quititng Number of times tried to quit tobacco: 2 Second hand smoke exposure: Yes Alcohol intake: former Year of sobriety/quit date alcohol: 2020 Substance/Drug Use: current Other substance/drug use details: CBD- oil. Housing: Assisted Living Facility Marital status: Legally Current occupational status: disabled Current gender identity: Male Course 2 Vital Signs: Vital signs: Vital Signs Temperature 98.8 F 10/22/23 17:17 Pulse Rate 88 10/22/23 19:36 Respiratory Rate 18 10/22/23 19:59 Blood Pressure 159/98 10/22/23 19:36 Pulse Oximetry 96 10/22/23 19:59 Oxygen Delivery Me thod Room Air 10/22/23 17:17 MDM - Chest Pain Medical Decision Making 48-year-old male checked out at shift change with chest discomfort. He was checked out at shift change. He notes now that his pain is improving on repeat examination. White blood cell count is 13. Laboratory otherwise not remarkable. Delta troponin is -1. Lipase is normal. Chest x-ray is nonacute. He is given Toradol and morphine for the remaining pain he has. He will be allowed discharge home close outpatient follow-up. Lab Data 10/22/23 16:58 10/22/23 16:58 Radiology Impressions Chest X-Ray 10/22/23 17:18 IMPRESSION: No acute pulmonary findings. Cardiomegaly. Laboratory Results WBC 13.02 10^3/uL (3.29-11.43) H 10/22/23 16:58 RBC 4.03 10^6/uL (3.85-5.65) 10/22/23 16:58 Hgb 12.10 g/dL (11.27-16.99) 10/22/23 16:58 Hct 35.8 % (37-53) L 10/22/23 16:58 MCV 88.8 fl (82-101) 10/22/23 16:58 MCH 30.0 pg (27-33) 10/22/23 16:58 MCHC 33.8 g/dL (30-55) 10/22/23 16:58 RDW 13.4 % (12.1-15.1) 10/22/23 16:58 Plt Count 324 10^3/cmm (157-399) 10/22/23 16:58 MPV 10.0 fL (7.4-10.4) 10/22/23 16:58 Neut % (Auto) 74.0 % 10/22/23 16:58 Lymph % (Auto) 13.4 % 10/22/23 16:58 Beaver % (Auto) 9.4 % 10/22/23 16:58 Eos % (Auto) 1.1 % 10/22/23 16:58 Baso % (Auto) 0.4 % 10/22/23 16:58 Neut # (Auto) 9.65 10^3/uL (1.8-7.7) H 10/22/23 16:58 Lymph # (Auto) 1.7 10^3/uL (0.8-4.8) 10/22/23 16:58 Beaver # (Auto) 1.2 10^3/uL (0.2-0.9) H 10/22/23 16:58 Eos # (Auto) 0.1 10^3/uL (0.0-0.8) 10/22/23 16:58 Baso # (Auto) 0.1 10^3/uL (0.0-0.1) 10/22/23 16:58 Nucleated RBC % (auto) 0 % 10/22/23 16:58 Nucleated RBCs # 0.0 /100WBC 10/22/23 16:58 Sodium 135 mmol/L (136-145) L 10/22/23 16:58 Potassium 3.5 mmol/L (3.5-5.1) 10/22/23 16:58 Chloride 99 mmol/L (98-107) 10/22/23 16:58 Carbon Dioxide 25 mmol/L (22-29) 10/22/23 16:58 Anion Gap 14.5 (5-19) 10/22/23 16:58 BUN 7 mg/dL (6-20) 10/22/23 16:58 Creatinine 0.9 mg/dL (0.7-1.2) 10/22/23 16:58 GFR Calculation 90.1 mL/min (90-130) 10/22/23 16:58 Glucose 113 mg/dL (65-115) 10/22/23 16:58 Calculated Osmolality 279 mOsm/kg (285-295) L 10/22/23 16:58 Calcium 8.6 mg/dL (8.5-10.5) 10/22/23 16:58 Total Bilirubin 0.3 mg/dL (0.15-1.2) 10/22/23 16:58 AST 17 U/L (0-40) 10/22/23 16:58 ALT 9 U/L (0-41) 10/22/23 16:58 Alkaline Phosphatase 74 U/L (40-130) 10/22/23 16:58 Troponin T Baseline 7 ng/L (0-15) 10/22/23 16:58 Troponin T 120 Minute 6.14 ng/L (0-15) 10/22/23 19:08 Delta Troponin T -0.86 ABS# (0-10) L 10/22/23 19:08 Total Protein 6.6 g/dL (6.6-8.7) 10/22/23 16:58 Albumin 3.8 g/dL (3.5-5.2) 10/22/23 16:58 Globulin 2.8 g/dL (1.3-4.6) 10/22/23 16:58 Lipase 19 U/L (13-60) 10/22/23 16:58 Discharge Plan Discharge Patient Disposition: Home Clinical Impression: Chest pain Condition: Stable Prescriptions: No Action Vimpat 200 mg tablet 200 mg PO BID Qty: 60 5RF polyethylene glycol 3350 17 gram powder in packet 17 g PO DAILY PRN (Reason: constipation) guaifenesin [Mucinex] 600 mg tablet extended release 12hr 600 mg PO BID PRN (Reason: cough) tramadol 50 mg tablet 50 mg PO BID PRN (Reason: Pain) trazodone 100 mg tablet 400 mg PO BEDTIME PRN (Reason: insomnia) Qty: 120 2RF nortriptyline 50 mg capsule 50 mg PO BEDTIME@20 Qty: 30 2RF buspirone 7.5 mg tablet 7.5 mg PO BID Qty: 60 2RF chlorpromazine 25 mg tablet 25 mg PO BID@07,19 Qty: 60 2RF fluoxetine 20 mg capsule 60 mg PO DAILY@07 Qty: 90 2RF folic acid 1 mg tablet 1 mg PO DAILY methotrexate sodium 2.5 mg tablet 2.5 mg PO .Weekly azelastine 137 mcg (0.1 %) aerosol,spray 2 spray intranasal BID Rx Instructions: administer into each nostril methocarbamol 500 mg tablet 500 mg PO TID PRN (Reason: Pain) solifenacin [Vesicare] 5 mg tablet 5 mg PO DAILY hydralazine 100 mg tablet 100 mg PO QID levocetirizine 5 mg tablet 5 mg PO .HS lidocaine 5 % cream 1 applic topical QID omeprazole 40 mg capsule,delayed release(DR/EC) 40 mg PO DAILY diclofenac sodium 1 % Gel 4 g TOPICAL QID Rx Instructions: apply to single knee, ankle, foot; for foot includes sole/toes/top of foot Mylanta Maximum Strength 12 oz PO Q8H PRN (Reason: upset stomach) Ventolin HFA 2 puff PO Q6H PRN (Reason: SOB) simethicone 125 mg PO PRN hydroxyzine HCl 50 mg tablet 25 mg PO BID PRN (Reason: anxiety or agitation) spironolactone 25 mg PO DAILY irbesartan 300 mg Tablet 300 mg PO DAILY@20 metoprolol succinate 50 mg tablet extended release 24 hr 100 mg PO DAILY@07 Discharge Orders: Discharge ED (Routine); Ordered 10/22/23 Ordered By: Jose M Stahl Referrals: Luz Maria Peralta DO [Primary Care Provider] - 4-7 days Patient Instructions: Chest Pain (ED), Opioid Safety, Pain Management Activity Restrictions/Additional Instructions: Return for worsening pain, shortness of breath, fever, other concerning symptoms. See your doctor next week. Coding Level of Care Code ED Ingot Weigher for Isaias Pyle
[2023-10-22] MEDS: lidocaine 2% viscous 15 ML, aluminum-mag hydrox-simethicon 30 ML, sucralfate oral liq 1 GM PO (17:57)
[2023-10-22] MEDS: LORazepam 2 mg/mL INJ 1 mL 0.5 MG IVP (17:58)
[2023-10-22 18:02] LABS: Basophils # 0.1 10^3/uL (0.0-0.1); Basophils % 0.4 %; Eosinophils # 0.1 10^3/uL (0.0-0.8); Eosinophils % 1.1 %; Hematocrit 35.8 % (37-53); Lymphocytes # 1.7 10^3/uL (0.8-4.8); Lymphocytes % 13.4 %; Mean Corpuscular HGB Conc 33.8 g/dL (30-55); Mean Corpuscular Volume 88.8 fl (82-101); Monocytes # 1.2 10^3/uL (0.2-0.9); Monocytes % 9.4 %; Neutrophils # 9.65 10^3/uL (1.8-7.7); Nucleated Red Blood Cells % 0 %; Platelet Count 324 10^3/cmm (157-399); Red Blood Count 4.03 10^6/uL (3.85-5.65); Red Cell Distribution Width 13.4 % (12.1-15.1); White Blood Count 13.02 10^3/uL (3.29-11.43)
[2023-10-22 18:22] LABS: Troponin(5th) Baseline 7 ng/L (0-15)
[2023-10-22 18:27] LABS: Alanine Aminotransferase 9 U/L (0-41); Albumin Level 3.8 g/dL (3.5-5.2); Alkaline Phosphatase 74 U/L (40-130); Anion Gap 14.5 (5-19); Aspartate Amino Transferase 17 U/L (0-40); Blood Urea Nitrogen 7 mg/dL (6-20); Calcium 8.6 mg/dL (8.5-10.5); Carbon Dioxide 25 mmol/L (22-29); Chloride 99 mmol/L (98-107); Creatinine Clr Calc Pharmacy 99.3731; Globulin 2.8 g/dL (1.3-4.6); Glomerular Filtration Rate 90.1 mL/min (90-130); Glucose 113 mg/dL (65-115); Lipase 19 U/L (13-60); Osmolality Calculated 279 mOsm/kg (285-295); Potassium 3.5 mmol/L (3.5-5.1); Sodium 135 mmol/L (136-145); Total Bilirubin 0.3 mg/dL (0.15-1.2); Total Protein 6.6 g/dL (6.6-8.7)
[2023-10-22 19:32] LABS: Troponin 5 2HR 6.14 ng/L (0-15)
[2023-10-22 19:34] LABS: Troponin 5 2HR Delta -0.86 ABS# (0-10)
[2023-10-22 19:36] VITALS: BP 159/98; PULSE 88; RESP 24; O2SAT 96
[2023-10-22] MEDS: ketorolac 30 mg/mL INJ IVP (19:56)
[2023-10-22] MEDS: ondansetron 2 mg/ML SDV 2 mL 4 MG IVP (19:57)
[2023-10-22 19:59] VITALS: RESP 18; O2SAT 96
[2023-10-22] MEDS: morphine 4 mg/mL SDV 1 mL IVP (19:59)
== END 2023-10-22 20:12 | disposition home or self-care (01) ==
PROVIDERS: Emergency Medicine; Emergency Provider Emergency Medicine; PCP Family Medicine
DX: R07.9 Chest pain, unspecified (principal); I10 Essential (primary) hypertension
CPT/HCPCS: 36415; 71045; 80053; 83690; 84484; 85025; 93005; 96374; 96375; 99285; J1885; J2060; J2270; J2405

== ENCOUNTER 2024-01-08 21:41 | Emergency (ER) | payer MEDICAID, SELFPAY ==
[2024-01-08 21:43] VITALS: BP 112/66; PULSE 77; RESP 18; TEMP 37.3; O2SAT 93; BMI 32.5
--- NOTE | 2024-01-08 21:49 | XRR_ITS ---
PROCEDURE INFORMATION: Exam: XR Abdomen Exam date and time: 01/08/2024 9:54 PM Age: 48 years old Clinical indication: Abdominal pain; Generalized; Prior surgery; Surgery date: 3-7 days post-operative; Surgery type: Colon surgery TECHNIQUE: Imaging protocol: Radiologic exam of the abdomen. Views: 2 Views. Upright and supine views. COMPARISON: CR XR KUB [id number] 11/02/2021 3:27 PM FINDINGS: Gastrointestinal tract: There are multiple loops of gas dilated small bowel measuring up to 4.4 cm in the mid abdomen. Mildly gas dilated transverse colon measuring up to 6.9 cm. Intraperitoneal space: Normal. No free air. Bones/joints: Unremarkable for age. XR/XR acute abdomen series [id number] IMPRESSION: Multiple loops of dilated small and large bowel wall which may be secondary to postoperative ileus. Recommend close follow-up.
--- NOTE | 2024-01-08 22:04 | ED_ITS ---
HPI - Abdominal Pain 2 General: Chief Complaint: Abdominal Pain Stated Complaint: post surgery last mon, abdominal pain Time Seen by Provider: 01/08/24 21:45 History of Present Illness: 48-year-old man with history of developm ental delay and hypertension who presents to the emergency room by ambulance with complaint of abdominal pain. He had a partial colectomy about a week ago for possible cancer. Does not know yet what it was. He says he is been having some diarrhea. No nausea or vomiting. They had concern for fever but he is not currently febrile although his temp is 99.1. Related Data Home Medications Medication Instructions Recorded Confirmed polyethylene glycol 3350 17 gram 17 g PO DAILY PRN constipation 12/30/20 12/15/23 oral powder packet irbesartan 300 mg tablet 300 mg PO DAILY@06/14/21 12/15/23 guaifenesin 600 mg tablet, 600 mg PO BID PRN cough 11/05/21 12/15/23 extended release 12 hr (Mucinex) metoprolol succinate 50 mg 100 mg PO DAILY@11/05/21 12/15/23 tablet,extended release 24 hr methocarbamol 500 mg tablet 500 mg PO TID PRN Pain 01/25/22 12/15/23 levocetirizine 5 mg tablet 5 mg PO .HS 06/15/22 12/15/23 lidocaine 5 % topical cream 1 applic topical QID 06/15/22 12/15/23 solifenacin 5 mg tablet (Vesicare) 5 mg PO DAILY 06/15/22 12/15/23 omeprazole 40 mg capsule,delayed 40 mg PO DAILY 12/06/22 12/15/23 release tramadol 50 mg tablet 50 mg PO BID PRN Pain 12/06/22 12/15/23 Mylanta Maximum Strength 12 oz PO Q8H PRN upset stomach 08/27/23 12/15/23 Ventolin HFA 2 puff PO Q6H PRN SOB 08/27/23 12/15/23 diclofenac sodium 1 % topical gel 4 g topical QID 08/27/23 12/15/23 hydroxyzine HCl 50 mg tablet 25 mg PO BID PRN anxiety or 08/27/23 12/15/23 agitation simethicone 125 mg PO PRN 08/27/23 12/15/23 spironolactone 25 mg PO DAILY 08/27/23 12/15/23 azelastine 137 mcg (0.1 %) nasal 2 spray intranasal BID 09/14/23 12/15/23 spray folic acid 1 mg tablet 1 mg PO DAILY 09/14/23 12/15/23 methotrexate sodium 2.5 mg tablet 2.5 mg PO .Weekly 09/14/23 12/15/23 dicyclomine 20 mg tablet 20 mg PO TID PRN 12/15/23 12/15/23 hydralazine 100 mg tablet 100 mg PO BID 12/15/23 12/15/23 mupirocin 2 % topical ointment 1 applic topical DAILY 12/15/23 12/15/23 Previous Rx's Medication Instructions Recorded lacosamide 200 mg tablet (Vimpat) 200 mg PO BID #60 tabs 08/08/19 buspirone 7.5 mg tablet 7.5 mg PO BID #60 tabs 12/15/23 chlorpromazine 25 mg tablet 25 mg PO BID@07,19 #60 tabs 12/15/23 fluoxetine 20 mg capsule 60 mg (3 x 20 mg) PO DAILY@07 #90 12/15/23 caps nortriptyline 50 mg capsule 50 mg PO BEDTIME@20 #30 caps 12/15/23 trazodone 100 mg tablet 400 mg (4 x 100 mg) PO BEDTIME PRN 12/15/23 insomnia #120 tabs ondansetron 8 mg disintegrating 8 mg PO Q6H #14 tabs 01/08/24 tablet polyethylene glycol 3350 17 17 g PO DAILY #510 grams 01/08/24 gram/dose oral powder (Miralax) Allergies Allergy/AdvReac Type Severity Reaction Status Date / Time Iodinated Contrast Media Allergy Severe Coded: Verified 01/08/24 21:49 heart stopped buprenorphine [From Suboxone] Allergy Intermediate ALGY-Rash Verified 01/08/24 21:49 naloxone [From Suboxone] Allergy Intermediate ALGY-Rash Verified 01/08/24 21:49 Penicillins Allergy Intermediate Rash Verified 01/08/24 21:49 sulfamethoxazole Allergy Unknown Unkown Verified 01/08/24 21:49 [From ] trimethoprim [From Novra] Allergy Unknown Unkown Verified 01/08/24 21:49 Review of Systems 2 Narrative: Constitutional symptoms: Negative except as documented in HPI. Skin symptoms: Negative except as documented in HPI. Eye symptoms: Negative except as documented in HPI. ENMT symptoms: Negative except as documented in HPI. Respiratory symptoms: Negative except as documented in HPI. Cardiovascular symptoms: Negative except as documented in HPI. Gastrointestinal symptoms: Negative except as documented in HPI. Genitourinary symptoms: Negative except as documented in HPI. Musculoskeletal symptoms: Negative except as documented in HPI. Neurologic symptoms: Negative except as documented in HPI. Psychiatric symptoms: Negative except as documented in HPI. Endocrine symptoms: Negative except as documented in HPI. PFSH ED 2 PFSH: Medical History Low back pain Hypertension Chronic migraine without aura, intractable, with status migrainosus Complex partial epilepsy Urolithiasis Urinary hesitancy Chronic pain Right ureteral calculus Opioid use disorder, moderate, dependence Surgical History History of orthopedic surgery Hx of knee surgery bilateral arthroscopic Family History Father , UNKNOWN AGE No problems noted. Mother , AT AGE 74 Lung disease Diabetes Congestive heart failure (CHF) Other CAD (coronary artery disease) Cancer Social History Smoking and tobacco/nicotine status: current every day tobacco/nicotine user cigarettes Packs smoked per day: 0.25 Years cigarettes smoked: 24 Quit status (tobacco/nicotine): has tried quititng Number of times tried to quit tobacco: 2 Second hand smoke exposure: Yes Alcohol intake: former Year of sobriety/quit date alcohol: 2020 Substance/Drug Use: current Other substance/drug use details: CBD- oil. Housing: Assisted Living Facility Marital status: Legally Current occupational status: disabled Current gender identity: Male Physical Exam 2 Narrative: EXAM NARRATIVE: General: Alert, no acute distress. Skin: Warm, dry. Head: Normocephalic, atraumatic. Neck: Supple, trachea midline. Eye: Extraocular movements are intact. Ears, nose, mouth and throat: mucosa moist. Cardiovascular: Regular, Normal peripheral perfusion. Respiratory: Lungs are clear to auscultation, respirations are non-labored, breath sounds are equal, Symmetrical chest wall expansion. Gastrointestinal: Soft, mildly distended, mild generalized tenderness most in the central abdomen. Central incision is clean dry and intact. Musculoskeletal: Normal ROM, no deformity. Neurological: Alert and oriented, No focal neurological deficit observed. Psychiatric: Cooperative, appropriate mood & affect. Course 2 Vital Signs: Vital signs: Vital Signs Temperature 99.1 F 01/08/24 21:43 Pulse Rate 67 01/09/24 00:00 Respiratory Rate 14 01/09/24 00:00 Blood Pressure 103/61 01/09/24 00:00 Pulse Oximetry 97 01/09/24 00:00 Oxygen Delivery Me thod Room Air 01/09/24 00:00 MDM - Abdominal Pain Medical Decision Making Medical decision making: Differential diagnosis including but not limited to and based on the above HPI, review of systems and physical exam: Patient with recent surgery and abdominal pain. Concern for obstruction or ileus. Also reports fever would have concern for infection such as UTI pneumonia or intra-abdominal infection. Orders placed to evaluate differential diagnosis based on the above differential, HPI and physical exam Lab Review: Laboratory results were reviewed and interpreted by myself the emergency room physician. Patient does not have any leukocytosis. No anemia. BUN and creatinine are slightly elevated 18 and 1.1. This is around his baseline. Urine is negative for infection. Acute abdominal series: chest x-ray: No acute process. No obvious infiltrates. No pneumothorax. No cardiomegaly. This was reviewed and interpreted by myself the emergency room physician Abdomen x-ray: Multiple loops of dilated small and large bowel which may be a secondary postop ileus. This was reviewed and interpreted by myself the emergency room physician. CT of the abdomen pelvis without contrast: Postop ileus. No evidence of mechanical obstruction or postop complication. I reviewed the patient's medical record. Reexamination: Patient has remained afebrile. No distress. Blood pressure is a little soft so have given some fluids. He is usually semihypertensive. He says he is taking fluids. He says he did not want to come here but he was forced to by the home he is staying in because he thought he had a fever. He says his pain is tolerable. He says he is taking good fluids. I had discussed with surgeon at [facility] and they would accept him there but the patient does not want to go. He wants to try to go home. He does not appear in any distress. He does not appear toxic. Consultation: I spoke with Dr. Maldonado who is on-call for general surgery here. He thinks this postoperative ileus can be managed with mag citrate and oral fluids at home. Consultation: I spoke with Dr. Zee at [facility] who is on-call for the surgeon that did the patient surgery. He says he would accept the patient there for fluids if needed. However the patient declines. Assessment and plan: Postoperative ileus Dehydration ?IV fluids, IV Zofran and mag citrate. - Discharged home - Discussed findings and plan with patient. Answered any questions. - All laboratory values were reviewed and interpreted personally by myself, the ER physician - All imaging was reviewed and interpreted personally by myself, the ER physician. - Evaluation and treatment of this problem were appropriate in the emergency setting Lab Data 01/08/24 22:05 01/08/24 22:05 Labs/Radiology: Radiology Impressions Chest/Abdomen X-ray 01/08/24 21:49 IMPRESSION: Multiple loops of dilated small and large bowel wall which may be secondary to postoperative ileus. Recommend close follow-up. Abdomen/Pelvis CT 01/08/24 22:19 IMPRESSION: Postop changes of right partial hemicolectomy with postoperative ileus. No evidence of mechanical obstruction or postoperative complication. Laboratory Results WBC 8.03 10^3/uL (3.29-11.43) 01/08/24 22:05 RBC 4.08 10^6/uL (3.85-5.65) 01/08/24 22:05 Hgb 11.70 g/dL (11.27-16.99) 01/08/24 22:05 Hct 34.9 % (37-53) L 01/08/24 22:05 MCV 85.5 fl (82-101) 01/08/24 22:05 MCH 28.7 pg (27-33) 01/08/24 22:05 MCHC 33.5 g/dL (30-55) 01/08/24 22:05 RDW 12.4 % (12.1-15.1) 01/08/24 22:05 Plt Count 380 10^3/cmm (157-399) 01/08/24 22:05 MPV 9.0 fL (7.4-10.4) 01/08/24 22:05 Neut % (Auto) 79.1 % 01/08/24 22:05 Lymph % (Auto) 11.7 % 01/08/24 22:05 [place] % (Auto) 5.5 % 01/08/24 22:05 Eos % (Auto) 1.4 % 01/08/24 22:05 Baso % (Auto) 0.4 % 01/08/24 22:05 Neut # (Auto) 6.36 10^3/uL (1.8-7.7) 01/08/24 22:05 Lymph # (Auto) 0.9 10^3/uL (0.8-4.8) 01/08/24 22:05 [place] # (Auto) 0.4 10^3/uL (0.2-0.9) 01/08/24 22:05 Eos # (Auto) 0.1 10^3/uL (0.0-0.8) 01/08/24 22:05 Baso # (Auto) 0.0 10^3/uL (0.0-0.1) 01/08/24 22:05 Nucleated RBC % (auto) 0 % 01/08/24 22:05 Nucleated RBCs # 0.0 /100WBC 01/08/24 22:05 Sodium 130 mmol/L (136-145) L 01/08/24 22:05 Potassium 3.9 mmol/L (3.5-5.1) 01/08/24 22:05 Chloride 103 mmol/L (98-107) 01/08/24 22:05 Carbon Dioxide 17 mmol/L (22-29) L 01/08/24 22:05 Anion Gap 13.9 (5-19) 01/08/24 22:05 BUN 18 mg/dL (6-20) 01/08/24 22:05 Creatinine 1.1 mg/dL (0.7-1.2) 01/08/24 22:05 GFR Calculation 71.4 mL/min (90-130) L 01/08/24 22:05 Glucose 134 mg/dL (65-115) H 01/08/24 22:05 Calculated Osmolality 274 mOsm/kg (285-295) L 01/08/24 22:05 Lactic Acid 0.6 mmol/L (0.5-2.2) 01/08/24 22:05 Calcium 7.9 mg/dL (8.5-10.5) L 01/08/24 22:05 Total Bilirubin 0.3 mg/dL (0.15-1.2) 01/08/24 22:05 AST 30 U/L (0-40) 01/08/24 22:05 ALT 19 U/L (0-41) 01/08/24 22:05 Alkaline Phosphatase 73 U/L (40-130) 01/08/24 22:05 C-Reactive Protein 47.8 mg/L (0.0-4.9) H 01/08/24 22:05 Total Protein 6.2 g/dL (6.6-8.7) L 01/08/24 22:05 Albumin 3.5 g/dL (3.5-5.2) 01/08/24 22:05 Globulin 2.7 g/dL (1.3-4.6) 01/08/24 22:05 Lipase 11 U/L (13-60) L 01/08/24 22:05 Urine Color Yellow (Yellow) 01/08/24 23:00 Urine Appearance Clear (CLEAR) 01/08/24 23:00 Urine pH 5.0 (5-7) 01/08/24 23:00 Ur Specific [place] 1.022 (1.005-1.030) 01/08/24 23:00 Urine Protein Trace (Negative) A 01/08/24 23:00 Urine Glucose (UA) Negative (Normal) 01/08/24 23:00 Urine Ketones Trace (Negative) 01/08/24 23:00 Urine Blood Negative (Negative) 01/08/24 23:00 Urine Nitrate Negative (Negative) 01/08/24 23:00 Urine Bilirubin Negative (Negative) 01/08/24 23:00 Urine Urobilinogen 1.0 mg/dL (Negative) 01/08/24 23:00 Ur Leukocyte Esterase Negative (Negative) 01/08/24 23:00 Urine RBC 0-2 /hpf (0-2) 01/08/24 23:00 Urine WBC 0-5 /hpf (0-5) 01/08/24 23:00 Ur Squamous Epith Cells 0-5 /hpf (0-5) 01/08/24 23:00 Amorphous Sediment Not Reportable 01/08/24 23:00 Urine Bacteria None seen /hpf (NONE) 01/08/24 23:00 Hyaline Casts 4.11 /lpf 01/08/24 23:00 All radiology interpretation(s) finalized by discharge Discharge Plan Discharge Patient Disposition: Home Clinical Impression: Postoperative ileus Condition: Stable Prescriptions: New ondansetron 8 mg tablet,disintegrating 8 mg PO Q6H Qty: 14 0RF Rx Instructions: Take 1/2-1 tab every 6 hours as needed for nausea and vomiting polyethylene glycol 3350 [Miralax] 17 gram/dose powder 17 g PO DAILY Qty: 510 0RF Rx Instructions: Take 1-2 scoops daily for the next 3 months to keep stools soft No Action Vimpat 200 mg tablet 200 mg PO BID Qty: 60 5RF polyethylene glycol 3350 17 gram powder in packet 17 g PO DAILY PRN (Reason: constipation) guaifenesin [Mucinex] 600 mg tablet extended release 12hr 600 mg PO BID PRN (Reason: cough) tramadol 50 mg tablet 50 mg PO BID PRN (Reason: Pain) folic acid 1 mg tablet 1 mg PO DAILY methotrexate sodium 2.5 mg tablet 2.5 mg PO .Weekly azelastine 137 mcg (0.1 %) aerosol,spray 2 spray intranasal BID Rx Instructions: administer into each nostril buspirone 7.5 mg tablet 7.5 mg PO BID Qty: 60 11RF chlorpromazine 25 mg tablet 25 mg PO BID@07,19 Qty: 60 11RF fluoxetine 20 mg capsule 60 mg PO DAILY@07 Qty: 90 11RF nortriptyline 50 mg capsule 50 mg PO BEDTIME@20 Qty: 30 11RF trazodone 100 mg tablet 400 mg PO BEDTIME PRN (Reason: insomnia) Qty: 120 11RF dicyclomine 20 mg tablet 20 mg PO TID PRN mupirocin 2 % ointment 1 applic topical DAILY methocarbamol 500 mg tablet 500 mg PO TID PRN (Reason: Pain) solifenacin [Vesicare] 5 mg tablet 5 mg PO DAILY levocetirizine 5 mg tablet 5 mg PO .HS lidocaine 5 % cream 1 applic topical QID hydralazine 100 mg tablet 100 mg PO BID omeprazole 40 mg capsule,delayed release(DR/EC) 40 mg PO DAILY diclofenac sodium 1 % Gel 4 g TOPICAL QID Rx Instructions: apply to single knee, ankle, foot; for foot includes sole/toes/top of foot Mylanta Maximum Strength 12 oz PO Q8H PRN (Reason: upset stomach) Ventolin HFA 2 puff PO Q6H PRN (Reason: SOB) simethicone 125 mg PO PRN hydroxyzine HCl 50 mg tablet 25 mg PO BID PRN (Reason: anxiety or agitation) spironolactone 25 mg PO DAILY irbesartan 300 mg Tablet 300 mg PO DAILY@20 metoprolol succinate 50 mg tablet extended release 24 hr 100 mg PO DAILY@07 Discharge Orders: Discharge ED (Routine); Ordered 01/08/24 Ordered By: Elayne Boyd Referrals: Luz Maria Peralta, [Primary Care Provider] - Discharge Diet: Full LIquid Discharge Activity: Increase activity as tolerated Patient Instructions: Ileus (ED) Activity Restrictions/Additional Instructions: Thank you for choosing [facility] for your healthcare needs today. Please realize this is an emergency room and that we are providing you with a medical screening exam and this may not be complete and all inclusive of all the testing and or work up that you may need to determine your ailment or severity of your illness. You have been screened and evaluated and felt safe for discharge. Health conditions do change or evolve sometimes and as such it is important that you follow up with your Primary Doctor to be re checked, 3-5 days is a general good time frame for follow up. You are always welcome to return to the ED for re assessment if your symptoms are worsening or you have new concerns Coding Level of Care Code ED Social Services Specialist for Isaias Pyle
--- NOTE | 2024-01-08 22:19 | CTR_ITS ---
PROCEDURE INFORMATION: Exam: CT Abdomen And Pelvis Without Contrast Exam date and time: 01/08/2024 10:32 PM Age: 48 years old Clinical indication: Abdominal pain; Generalized; Prior surgery; Surgery date: 3-7 days post-operative; Surgery type: Partial colectomy; Additional info: Abdominal pain. Status post partial colectomy TECHNIQUE: Imaging protocol: Computed tomography of the abdomen and pelvis without contrast. Radiation optimization: All CT scans at this facility use at least one of these dose optimization techniques: automated exposure control; mA and/or kV adjustment per patient size (includes targeted exams where dose is matched to clinical indication); or iterative reconstruction. COMPARISON: CT kidney stone [id number] 06/01/2021 10:53 AM RADIATION DOSE METRICS: Total DLP (mGy-cm): 825.23 FINDINGS: Liver: Normal. No mass. Gallbladder and biliary ducts: Normal. No calcified stones. No ductal dilation. Pancreas: Normal. No ductal dilation. Spleen: Normal. No splenomegaly. Adrenal glands: Normal. No mass. Kidneys and ureters: Right interpolar nonobstructive calcified calyceal renal stone. Stomach and bowel: There are multiple loops of dilated small bowel with air-fluid levels measuring up to 4 cm likely secondary to postoperative ileus. Postoperative changes of partial right hemicolectomy. No definite transition points are evidence of mechanical obstruction. Appendix: No evidence of appendicitis. Intraperitoneal space: Mild free fluid within the right paracolic gutter, likely postoperative. No free air. Vasculature: Mild atherosclerotic changes of the aorta and its major branches. Lymph nodes: Unremarkable. No enlarged lymph nodes. Urinary bladder: Unremarkable as visualized. Reproductive: Unremarkable as visualized. Bones/joints: T10 vertebral body hemangioma. Sclerotic density likely representing a bone island in the right ischium. Soft tissues: Midline anterior abdominal wall postoperative changes. CT/CT abdomen pelvis wo con [id number] IMPRESSION: Postop changes of right partial hemicolectomy with postoperative ileus. No evidence of mechanical obstruction or postoperative complication.
[2024-01-08 22:25] LABS: Basophils % 0.4 %; Eosinophils # 0.1 10^3/uL (0.0-0.8); Eosinophils % 1.4 %; Hematocrit 34.9 % (37-53); Lymphocytes # 0.9 10^3/uL (0.8-4.8); Lymphocytes % 11.7 %; Mean Corpuscular HGB Conc 33.5 g/dL (30-55); Mean Corpuscular Hemoglobin 28.7 pg (27-33); Mean Corpuscular Volume 85.5 fl (82-101); Monocytes # 0.4 10^3/uL (0.2-0.9); Monocytes % 5.5 %; Neutrophils # 6.36 10^3/uL (1.8-7.7); Neutrophils % 79.1 %; Nucleated Red Blood Cells % 0 %; Platelet Count 380 10^3/cmm (157-399); Red Blood Count 4.08 10^6/uL (3.85-5.65); Red Cell Distribution Width 12.4 % (12.1-15.1); White Blood Count 8.03 10^3/uL (3.29-11.43)
[2024-01-08 22:40] VITALS: BP 111/74; PULSE 82; RESP 16; O2SAT 97
[2024-01-08 22:43] LABS: Alanine Aminotransferase 19 U/L (0-41); Albumin Level 3.5 g/dL (3.5-5.2); Alkaline Phosphatase 73 U/L (40-130); Aspartate Amino Transferase 30 U/L (0-40); Blood Urea Nitrogen 18 mg/dL (6-20); C Reactive Protein 47.8 mg/L (0.0-4.9); Calcium 7.9 mg/dL (8.5-10.5); Chloride 103 mmol/L (98-107); Creatinine Clr Calc Pharmacy 81.3052; Globulin 2.7 g/dL (1.3-4.6); Glomerular Filtration Rate 71.4 mL/min (90-130); Glucose 134 mg/dL (65-115); Lipase 11 U/L (13-60); Osmolality Calculated 274 mOsm/kg (285-295); Potassium 3.9 mmol/L (3.5-5.1); Sodium 130 mmol/L (136-145); Total Bilirubin 0.3 mg/dL (0.15-1.2); Total Protein 6.2 g/dL (6.6-8.7)
[2024-01-08 22:44] LABS: Lactic Sepsis W/Reflex 0.6 mmol/L (0.5-2.2)
[2024-01-08 23:17] LABS: Anion Gap 13.9 (5-19); Carbon Dioxide 17 mmol/L (22-29)
[2024-01-08 23:29] LABS: Bilirubin Urine Negative (Negative); Blood Urine Negative (Negative); Glucose Urine UA Negative (Normal); Ketones Urine Trace (Negative); Leukocyte Esterase Urine Negative (Negative); Nitrate Urine Negative (Negative); Protein Urine Trace (Negative); Specific Gravity, Urine 1.022 (1.005-1.030); Urine Appearance Clear (CLEAR); Urine Color Yellow (Yellow)
[2024-01-08 23:34] LABS: Bacteria Urine None Seen /hpf; Hyaline Casts Urine 4.11 /lpf; RBC Urine 0-2 /hpf (0-2); Squamous Epithelial Cell Urine 0-5 /hpf (0-5); WBC Urine 0-5 /hpf (0-5)
[2024-01-08] MEDS: ondansetron 2 mg/ML SDV 2 mL 8 MG IVP (23:47)
[2024-01-08] MEDS: sodium chloride 0.9% 1,000 ML 999 ML IV (23:48)
[2024-01-08] MEDS: magnesium citrate Btl 296 mL PO (23:52)
[2024-01-08 23:57] VITALS: BP 97/58; PULSE 69; RESP 14; O2SAT 95
[2024-01-09] VITALS: BP 103/61; PULSE 67; RESP 14; O2SAT 97
[2024-01-09 00:35] VITALS: BP 109/60; PULSE 71; RESP 16; O2SAT 96
== END 2024-01-09 00:47 | disposition home or self-care (01) ==
PROVIDERS: Emergency Provider Emergency Medicine; PCP Family Medicine
DX: K91.89 Other postprocedural complications and disorders of digestive system (principal); K56.7 Ileus, unspecified; F17.210 Nicotine dependence, cigarettes, uncomplicated; I10 Essential (primary) hypertension
CPT/HCPCS: 36415; 74022; 74176; 80053; 81001; 83605; 83690; 85025; 86140; 87040; 96361; 96374; 99285; J2405; J7030

== ENCOUNTER 2024-01-16 08:30 | Oncology outpatient (recurring) (ONCR) | payer SELFPAY ==
[2024-01-09 13:25] VITALS: BP 122/69; BMI 32.4
[2024-01-16 08:45] LABS: Basophils % 0.1 %; Eosinophils # 0.1 10^3/uL (0.0-0.8); Eosinophils % 1.2 %; Hematocrit 32.2 % (37-53); Lymphocytes # 0.9 10^3/uL (0.8-4.8); Lymphocytes % 13.7 %; Mean Corpuscular HGB Conc 33.9 g/dL (30-55); Mean Corpuscular Hemoglobin 28.5 pg (27-33); Mean Corpuscular Volume 84.3 fl (82-101); Monocytes # 0.3 10^3/uL (0.2-0.9); Monocytes % 5.1 %; Neutrophils # 5.27 10^3/uL (1.8-7.7); Neutrophils % 78.7 %; Nucleated Red Blood Cells % 0 %; Platelet Count 327 10^3/cmm (157-399); Red Blood Count 3.82 10^6/uL (3.85-5.65); Red Cell Distribution Width 12.6 % (12.1-15.1)
[2024-01-16 09:25] LABS: Alanine Aminotransferase 8 U/L (0-41); Albumin Level 3.5 g/dL (3.5-5.2); Alkaline Phosphatase 67 U/L (40-130); Anion Gap 13.3 (5-19); Aspartate Amino Transferase 13 U/L (0-40); Blood Urea Nitrogen 7 mg/dL (6-20); Calcium 8.3 mg/dL (8.5-10.5); Carbon Dioxide 24 mmol/L (22-29); Chloride 102 mmol/L (98-107); Creatinine Clr Calc Pharmacy 125.1156; Globulin 2.8 g/dL (1.3-4.6); Glomerular Filtration Rate 120.4 mL/min (90-130); Glucose 127 mg/dL (65-115); Lactate Dehydrogenase 182 U/L (135-225); Magnesium 1.6 mg/dL (1.7-2.3); Osmolality Calculated 280 mOsm/kg (285-295); Potassium 4.3 mmol/L (3.5-5.1); Sodium 135 mmol/L (136-145); Total Bilirubin 0.2 mg/dL (0.15-1.2); Total Protein 6.3 g/dL (6.6-8.7)
== END 2024-01-25 23:59 | disposition home or self-care (01) ==
LOC: ONCMED 08:31
PROVIDERS: PCP Family Medicine; Visit Provider Internal Medicine Hematology & Oncology
DX: C18.2 Malignant neoplasm of ascending colon (principal)
CPT/HCPCS: 36415; 80053; 82378; 83615; 83735; 85025

== ENCOUNTER 2024-10-18 06:46 | Emergency (ER) | payer MEDICAID, SELFPAY ==
[2024-01-09 13:25] VITALS: BP 122/69; BMI 32.4
[2024-10-18] VITALS (8 sets, daily range): BP systolic 98–124; BP diastolic 62–85; PULSE 86–99; RESP 16; TEMP 36.3; O2SAT 92–99; BMI 26.6
--- NOTE | 2024-10-18 06:47 | ECG_ITS ---
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
--- NOTE | 2024-10-18 06:54 | XR_ITS ---
WS: [id number] Portable AP upright chest, 10/18/2024 Clinical Data: chest pain Comparison: Portable chest, 01/08/2024 Findings: There is minimal patchy opacity in the retrocardiac region and adjacent to the left cardiac border. There is a small left pleural effusion. No nodules or masses are seen. The heart is slightly enlarged. The pulmonary vascularity is not increased. No pneumothorax is seen. XR/XR chest 1V portable [id number] Impression: 1. Patchy opacity in retrocardiac region which could represent atelectasis and/ or pneumonia. 2. Cardiomegaly. 3. Small left pleural effusion.
--- OUTSIDE RECORDS SUMMARY | 2024-10-18 06:55 | XMS_ITS | Clinical Summary ---
Author Organization [facility] Address [address] [place] [id number] Care Team Providers Care Process Manager Name Role Phone Bon Madrigal MD Primary Care Provider Allergies Active Allergy Reactions Criticality Noted Date Comments Dye Other (See Comments) 10/06/2016 Iv dye he coded with Gabapentin Seizure High 12/23/2016 Penicillins Rash Low 10/06/2016 Sulfamethoxazole-Trimet hoprim Unknown 10/06/2016 Medications hydrOXYzine HCl (ATARAX) 50 mg tablet Take 1 Tablet (50 mg) by mouth 3 times daily as needed for Itching. 60 Tablet 3 8 Active tiZANidine (ZANAFLEX) 2 mg Tablet TAKE 1 TO 2 TABLETS BY MOUTH FOUR TIMES A DAY NEEDED FOR SPASM 40 Tablet 1 9 Active montelukast (SINGULAIR) 10 mg tablet Take 10 mg by mouth daily. 10 9 Active acetaminophen-ca ffeine (EXCEDRIN TENSION HEADACHE) 500-65 mg Tablet Take by mouth. Active fluticasone propionate (FLONASE) 50 mcg/spray [place], Suspension nasal inhaler 2 SPRAY EACH NOSTRIL EVERY DAY 16 Gram 11 9 Active FLUoxetine (PROzac) 40 mg capsuleIndicatio ns:Bipolar affective disorder, depressed in partial remission (CMS/HCC),Schizo -affective schizophrenia, chronic condition (CMS/HCC) TWO CAPS ON MON, WED, FRI and ONE CAP ON OTHER 4 DAYS OF THE WEEK. 45 Capsule 5 9 Active amLODIPine (NORVASC) 10 mg tablet TAKE ONE TABLET BY MOUTH EVERY DAY 30 Tablet 5 9 Active omeprazole (PriLOSEC) 20 mg Tablet, Delayed Release (E.C.)Indication s:Gastroesophage al reflux disease, esophagitis presence not specified Take 1 Tablet (20 mg) by mouth daily. 30 Tablet 2 9 Active topiramate (TOPAMAX) 50 mg tablet TAKE ONE TABLET TWICE A DAY 60 Tablet 2 9 Active ondansetron (ZOFRAN ODT) 8 mg Tablet, Rapid Dissolve DISSOLVE 1 TABLET ON TOP OF TONGUE THEN SWALLOW WITH SALIVA EVERY 8 HOURS NEEDED FOR NAUSEA OR VOMITING. 60 Tablet 1 0 Active Irbesartan (AVAPRO) 300 mg tablet TAKE ONE TABLET DAILY AT BEDTIME 30 Tablet 2 0 Active chlorproMAZINE (THORAZINE) 50 mg tablet TAKE ONE TABLET BY MOUTH DAILY 30 Tablet 5 0 Active busPIRone (BUSPAR) 15 mg Tablet TAKE 1/2 TABLET(S) BY MOUTH TWICE A DAY 30 Tablet 5 0 Active nortriptyline (PAMELOR) 50 mg capsule TAKE ONE CAPSULE BY MOUTH DAILY AT BEDTIME 30 Capsule 5 0 Active furosemide (LASIX) 40 mg tablet TAKE 1 TABLET (40 MG) BY MOUTH 1 TIME DAILY NEEDED (FLUID SWELLING). 30 Tablet 5 0 Active loratadine (CLARITIN) 10 mg tablet TAKE ONE TABLET BY MOUTH DAILY 30 Tablet 5 0 Active haloperidoL (HALDOL) 5 mg tablet Take 5 mg by mouth every 6 hours. One tab PO TID PRN Active lacosamide (Vimpat) 200 mg tablet TAKE 1 TABLET (200 MG) BY MOUTH 2 TIMES DAILY. 60 Tablet 5 1 Active HYDROcodone-acet aminophen (NORCO) 5-325 mg tabletIndication s:Chronic bilateral low back pain with bilateral sciatica Take 1 Tablet by mouth 2 times daily as needed (For moderate or severe pain). 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 06/27/2017 Hyperglycemia 02/15/2017 Mixed hyperlipidemia 02/14/2017 Obesity (BMI 30.0-34.9) 02/14/2017 Cigarette dependence 11/15/2016 Seizure disorder 10/10/2016 Schizo-affective schizophrenia, chronic conditio n 10/10/2016 Chronic bilateral low back pain with bilateral s ciatica 10/10/2016 Primary osteoarthritis involving multiple joints 10/10/2016 Essential hypertension 10/10/2016 Bipolar affective disorder, depressed in partial remission 10/10/2016 Gastroesophageal reflux disease without esophagi tis 10/10/2016 Resolved Problems Problem Noted Date Diagnosed Date Resolved Date Chest pain 07/28/2017 06/17/2018 Immunizations Immunization Administration Dates Next Due (TDVAX)(7 YRS UP) TETANUS AN D DIPHTHERIA TOXOIDS, ADSORBED (2 LF OF TETANUS TOXOID AND 2 LF OF DIPHTHERIA TOXOID), 0.5ML (PF), IM 01/15/2017 INFLUENZA VACCINE QUADRIVALENT 3 YR UP PF IM Influenza Seasonal Unspecified Formulation IM Influenza Vaccine Quad Split 18 Yrs+ Pf Im 03/05 PNEUMOVAX (PPSV23) pneumococ harper polysaccharide 23-valent Vaccine 01/15/2017 Family History Medical History Relation Name Comments Breast Cancer Mother Diabetes Mother Heart Disease Mother Lung Cancer Other aunt Relation Name Status Comments Mother Other aunt Other Social History Tobacco Use Types Packs/Day Years Used Date Smoking Tobacco: Every Day Cigarettes Smokeless Tobacco: Never Tobacco Cessation:Ready to Q uit: No Alcohol Use Standard Drinks/Week Comments Yes 1 (1 standard drink = 0.6 oz pur e alcohol) Sex and Gender Information Value Date Recorded Sex Assigned at Not on file Legal Sex Male 2:19 PM CDT Gender Identity Not on file Sexual Orientation Not on file Last Filed Vital Signs Vital Sign Reading Time Taken Comments Blood Pressure 110/70 02/27/2020 11:55 AM [facility] Pulse 84 02/27/2020 11:55 AM [facility] Temperature 36.6 C (97.8 F) 02/27/2020 11:55 AM [facility] Respiratory Rate 20 02/27/2020 11:55 AM [facility] Oxygen Saturation 98% 02/27/2020 11:55 AM [facility] Inhaled Oxygen Concentration - - Weight 83.2 kg (183 lb 6.4 oz) 02/27/2020 11:55 AM [facility] Height 165.1 cm (5' 5 ) 02/27/2020 11:55 AM [facility] Body Mass Index 30.52 02/27/2020 11:55 AM [facility] Plan of Treatment Health Maintenance Due Date Last Done Comments HEPATITIS B VACCINES (1 of 3 - 19+ 3-dose series) 07/26/1994 DTAP/TDAP/TD VACCINES (1 - Tdap) 01/16/2017 01/16/20 17 COLORECTAL SCREENING 07/26/2020 Colorectal Cancer Screening 07/26/2020 FIT-DNA Q 3 years 07/26/2020 FIT/FOBT Q 1 year 07/26/2020 Flex Sig/CT Colonography Q 5 years 07/26/2020 Pre-Diabetes and Diabetes Screening 03/04/2022 03/04/2019, 09/14/2018, 03/05/2018 INFLUENZA VACCINE (#1) 2024 9, 03/05/2018, 01/15/2017 Preventative Visit-Managed Medicaid 11/23/202411/22 Procedures Procedure Name Priority Date/Time Associated Diagnosis Comments HEMOGLOBIN A1C Routine 03/04/2019 8:43 AM [facility] Hyperglycemia from Last 3 Months or Most Recently Relevant to Health Maintenance Results * HEMOGLOBIN A1C (03/04/2019 8:43 AM [facility]) HEMOGLOBIN A1C 5.3 See Comment % 03/04/2019 8:30 PM [facility] EST. AVG GLUCOSE, A1C 105 mg/dL 03/04/2019 8:30 PM [facility] Blood Venipuncture / Unknown 03/04/2019 8:43 AM [facility] 03/04/2019 8:08 PM [facility] Narrative [facility] - 03/04/2019 8:30 PM [facility] HGB A1C INTERPRETATION NORMAL: <5.7% PRE-DIABETES: 5.7 - 6.4% DIABETES: 6.5% OR GREATER Falsely low A1C measurements can occur when: 1. Anemia and/or hemolytic anemia is present. 2. Hemoglobin variants present. 3. Renal failure. 4. Transfusion of blood product in the last 120 days. We recommend ordering a fructosamine test(PQT0065) to more accurately assess glycemic status if any of the above conditions are present. Bon Madrigal MD CHEMISTRY ORDERABLES Final Resu lt [facility]# [id number] [address] [place] [address] from Last 3 Months or Most Recently Relevant to Health Maintenance Insurance MEDICAID [place] Advance Directives For more information, please contact: [phone] * Full Code (Latest Code Status on File) Date Activated Date Inactivated Comments 07/28/2017 7:41 PM 07/29/2017 5:20 PM Care Teams Process Manager Relationship Specialty Start Date End Date Bon Madrigal MD [address] [place] [id number] PCP - General Family Practice 06/27/17
--- OUTSIDE RECORDS SUMMARY | 2024-10-18 06:55 | XMS_ITS | Clinical Summary ---
Author Organization [facility] Address [address] [place] [address] Care Team Providers Care Wildlife Conservationist Name Role Phone Luz Maria Peralta Primary Care Provider [phone] Allergies Active Allergy Reactions Criticality Noted Date Comments Dye Other (See Comments) 10/06/2016 Iv dye he coded with Iv dye he coded with Iodinated Contrast Media Anaphylaxis High 01/06/2022 Penicillins Rash Low 10/06/2016 Sulfamethoxazole-Trime thoprim Unknown 10/06/2016 Medications FLUoxetine (PROzac) 20 mg capsule Take 60 mg by mouth daily. Active traZODone (DESYREL) 100 mg tablet Take 1 or 2 tablets daily at bedtime prn insomnia 60 Tablet 6 022 Active chlorproMAZINE (THORAZINE) 25 mg tablet Take 25 mg by mouth 2 times daily. Active nortriptyline (PAMELOR) 50 mg capsule Take 50 mg by mouth daily at bedtime. Active naloxone (NARCAN) 4 mg/spray [place], Non-Aerosol Administer 1 spray in one nostril, alternate nostrils, and repeat every 3 minutes PRN if no or minimal response 2 Each 1 023 Active Mucinex 600 mg Extended Release Biphasic tabletIndications:N cecy congestion TAKE ONE TABLET BY MOUTH TWICE DAILY NEEDED FOR congestion 60 Tablet 2 023 Active busPIRone (BUSPAR) 7.5 mg Tablet Take 7.5 mg by mouth 2 times daily. Active lidocaine HCL (ASPERCREME) 4% Cream APPLY TO THE AFFECTED AREA(S) FOUR TIMES DAILY NEEDED 120 Gram 023 Active albuterol sulfate HFA 90 mcg/actuation aerosol inhalerIndications: HERNANDEZ (dyspnea on exertion) Take 2 Puffs by inhalation every 6 hours as needed for Shortness of Breath. 8.5 Gram 5 023 Active methocarbamoL (ROBAXIN) 500 mg tablet TAKE ONE TABLET BY MOUTH THREE TIMES DAILY NEEDED FOR SPASMS 90 Tablet 2 024 Active calcium carb/magnesium hydrox (MYLANTA ORAL) Take by mouth. As needed Active nicotine polacrilex (NICORETTE) 4 mg Gum by See Admin Instructions route every 2 hours as needed for Smoking Cessation. As needed Active simethicone 125 mg Tablet, Chewable Dispense (3) 125 mg Simethicone chewable tablets with prep as directed. 3 Tablet 024 Active folic acid (FOLVITE) 1 mg tabletIndications:L gregory-term use of immunosuppressant medication Take 1 Tablet (1 mg) by mouth daily. 90 Tablet 3 024 Active levocetirizine (XYZAL) 5 mg tabletIndications:S easonal allergic rhinitis due to other allergic trigger take 1 tablet by mouth every day 90 Tablet 3 024 Active dicyclomine (BENTYL) 20 mg tabletIndications:G astric pain Take 1 Tablet (20 mg) by mouth 3 times daily as needed for Pain. 90 Tablet 3 024 Active polyethylene glycol 3350 (MIRALAX) 17 gram/dose Powder Take 17 Grams by mouth daily. Dissolve in 8 ounces of fluid and drink entire liquid Active diclofenac sodium (VOLTAREN) 1 % gelIndications:Bila teral wrist pain,Bilateral hand pain Apply 4 Grams to affected area 4 times daily as needed for Pain or Discomfort. 450 Gram 4 024 Active mupirocin (BACTROBAN) 2 % OintmentIndications :Nasal ulcer Apply to affected area 2 times daily as needed (Rash). 30 Gram 1 024 Active nystatin (MYCOSTATIN) 100,000 unit/gram CreamIndications:Ca ndidal intertrigo Apply to affected area 2 times daily. 30 Gram 2 024 Active acetaminophen (TYLENOL) 500 mg tabletIndications:P rimary osteoarthritis involving multiple joints,Polyarthriti s with positive rheumatoid factor (CMS/HCC) Take 2 Tablets (1,000 mg) by mouth every 8 hours as needed for Pain. 180 Tablet 11 024 Active hydrOXYzine HCL (ATARAX) 25 mg tabletIndications:P ruritic rash TAKE ONE TABLET BY MOUTH THREE TIMES DAILY NEEDED FOR ITCHING 30 Tablet 3 024 Active ondansetron (ZOFRAN ODT) 8 mg Tablet, Rapid DissolveIndications :Chronic nausea Dissolve 1 tablet on top of tongue then swallow with saliva every 8 hours as needed for nausea or vomiting 30 Tablet 3 025 Active Irbesartan (AVAPRO) 300 mg tabletIndications:E ssential hypertension Take 1 Tablet (300 mg) by mouth daily at bedtime. 100 Tablet 3 025 Active loperamide (IMODIUM) 2 mg capsuleIndications: Chronic diarrhea Take 1 Capsule (2 mg) by mouth every 3 hours as needed for Diarrhea/Loose Stools. 90 Capsule 3 025 Active solifenacin (VESICARE) 5 mg TabletIndications:B enign prostatic hyperplasia with urinary hesitancy Take 1 Tablet (5 mg) by mouth daily. 90 Tablet 3 025 Active acetaminophen-codei ne (TYLENOL #3) 300-30 mg tabletIndications:P olyarthritis with positive rheumatoid factor (CMS/HCC),Chronic bilateral low back pain with bilateral sciatica,Chronic neck pain Take 1 Tablet by mouth 2 times daily as needed for Pain, Moderate. 20 Tablet 025 Active hydrALAZINE (APRESOLINE) 100 mg Tablet tabletIndications:E ssential hypertension Take 1 Tablet (100 mg) by mouth 4 times daily. 270 Tablet 3 025 Active amLODIPine (NORVASC) 5 mg tabletIndications:E ssential hypertension Take 1 Tablet (5 mg) by mouth daily. 30 Tablet 3 025 Active celecoxib (CeleBREX) 200 mg capsuleIndications: Rheumatoid arthritis involving multiple sites with positive rheumatoid factor (CMS/HCC) Take 1 Capsule (200 mg) by mouth 2 times daily. 180 Capsule 025 Active lacosamide (VIMPAT) 200 mg tablet Take 1 tablet by mouth twice daily 60 Tablet 5 025 Active spironolactone (ALDACTONE) 25 mg tablet Take 1 tablet by mouth once daily 90 Tablet 3 025 Active omeprazole (PriLOSEC) 40 mg Capsule, Delayed Release(E.C.) TAKE ONE CAPSULE BY MOUTH EVERY DAY 1 HOUR BEFORE SUPPER 30 Capsule 025 Active metoprolol succinate (TOPROL XL) 100 mg Extended Release 24 hour tablet Take 1 tablet by mouth once daily 90 Tablet 3 025 Active methotrexate (RHEUMATREX) 2.5 mg Tablet Take 8 Tablets (20 mg) by mouth every 7 days. 32 Tablet 025 Active metoprolol succinate (TOPROL XL) 100 mg Extended Release 24 hour tablet TAKE ONE TABLET BY MOUTH EVERY DAY (OR MAY HAVE 2 TABLETS TO = 100MG) 100 Tablet 3 024 2024 Discontinued omeprazole (PriLOSEC) 40 mg Capsule, Delayed Release(E.C.) TAKE ONE CAPSULE BY MOUTH EVERY DAY BEFORE SUPPER; GIVE 1 HOUR PRIOR TO SUPPER 90 Capsule 4 024 2024 Discontinued methotrexate (RHEUMATREX) 2.5 mg Tablet TAKE 8 TABLETS BY MOUTH ONCE WEEKLY ON MONDAY 56 Tablet 025 2024 Discontinued Active Problems Problem Noted Date Diagnosed Date Chronic anemia 11/24/2023 s/p lap right hemicolectomy 01/01/2024 for colon polyp 11/23/2023 Polyarthritis with positive rheumatoid factor Chronic left shoulder pain 08/03/2022 Chronic neck pain 08/03/2022 Benign prostatic hyperplasia with urinary hesita ncy 08/08/2021 Fibromyalgia 07/13/2018 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 06/27/2017 Hyperglycemia 02/15/2017 Mixed hyperlipidemia 02/14/2017 Obesity (BMI 30.0-34.9) 02/14/2017 Cigarette dependence 11/15/2016 Primary osteoarthritis involving multiple joints 10/10/2016 Bipolar affective disorder, depressed in partial remission 10/10/2016 Schizo-affective schizophrenia, chronic conditio n 10/10/2016 Essential hypertension 10/10/2016 Gastroesophageal reflux disease without esophagi tis 10/10/2016 Chronic bilateral low back pain with bilateral s ciatica 10/10/2016 Resolved Problems Problem Noted Date Diagnosed Date Resolved Date Chest pain 07/28/2017 06/17/2018 Seizure disorder 10/10/2016 04/23/2023 Encounters Date Type Department Care Team Description 10/11/2024 [facility] Rheumat[facility]- [place] [facility] [address] [place] [address] Liliam Dillon PA 10/11/2024 [facility] [place] [address] [place] [address] Luz Maria Peralta, DO 10/09/2024 External Device Data ST[facility] ABSTRACTION Provider, Abstract 10/09/2024 External Device Data [place] ABSTRACTION Provider, Abstract 10/08/2024 External Device Data [place] ABSTRACTION Provider, Abstract 09/24/2024 External Device Data [place] ABSTRACTION Provider, Abstract 09/24/2024 [facility] [place] [address] [place] [address] Luz Maria Peralta, DO 09/11/2024 External Device Data [place] ABSTRACTION Provider, Abstract 09/10/2024 External Device Data [place] ABSTRACTION Provider, Abstract 08/22/2024 [facility] Rheumatology- [place] [address] [place] [address] Megan Turner MD 08/15/2024 External Device Data [place] ABSTRACTION Provider, Abstract 08/15/2024 External Device Data [place] ABSTRACTION Provider, Abstract 08/15/2024 External Device Data [place]STRA[place] Provider, Abstract 08/14/2024 External Device Data [place]STRA[place] Provider, Abstract 08/13/2024 External Device Data [place] ABSTRA[place] Provider, Abstract 08/09/2024 [facility] [place] [address] [place] [address] Luz Maria Peralta, DO 08/09/2024 [facility] Rheumatology- [place] [address] [place] [address] Megan Turner MD 07/26/2024 [facility] [place] [address] [place] [address] Kathryn Luz Maria L, DO 07/24/2024 2:00 PM CDT Office Visit [facility] Rheumatology- [place] Kenrick Villalobos [address] [place] [address] Liliam Dillon PA Rheumatoid arthritis involving multiple sites with positive rheumatoid factor (CMS/HCC) (Primary Dx); High risk medication use; Primary osteoarthritis involving multiple joints 07/24/2024 Results [facility] [address] [place] [address] Liliam Dillon PA COMPREHENSIVE METABOLIC PANEL, CBC WITH DIFFERENTIAL 07/23/2024 1:20 PM CDT Office Visit [facility] Medicine [place] [address] [place] [address] Chingjune, TIME CLOCK MECHANIC Essential hypertension (Primary Dx) from Last 3 Months Immunizations Immunization Administration Dates Next Due (TDVAX)(7 YRS UP) TETANUS AN D DIPHTHERIA TOXOIDS, ADSORBED (2 LF OF TETANUS TOXOID AND 2 LF OF DIPHTHERIA TOXOID), 0.5ML (PF), IM 01/15/2017 INFLUENZA VACCINE QUADRIVALENT 3 YR UP PF IM 01/2021,02/15/2019 INFLUENZA VACCINE QUADRIVALENT 6 MOS UP PF IM Influenza Seasonal Unspecified Formulation [...] Used Date Smoking Tobacco: Every Day Cigarettes Passive Smoke Exposure: Current Smokeless Tobacco: Never Tobacco Cessation:Ready to Q uit: Not Asked; Counseling Given: Not Answered Comments:trying to quit Alcohol Use Standard Drinks/Week Comments Yes 1 (1 standard drink = 0.6 oz pur e alcohol) Sex and Gender Information Value Date Recorded Sex Assigned at Not on file Legal Sex Male 11:28 PM RN CHARGE Gender Identity Not on file Sexual Orientation Not on file Last Filed Vital Signs Vital Sign Reading Time Taken Comments Blood Pressure 136/72 07/24/2024 2:00 PM CDT Pulse 55 07/24/2024 2:00 PM CDT Temperature 37 C (98.6 F) 07/23/2024 1:30 PM CDT Respiratory Rate 18 07/23/2024 1:30 PM CDT Oxygen Saturation 97% 07/24/2024 2:00 PM CDT Inhaled Oxygen Concentration - - Weight 85.5 kg (188 lb 9.6 oz) 07/24/2024 2:00 P M CDT Height 165.1 cm (5' 5 ) 07/24/2024 2:00 PM CDT Body Mass Index 31.38 07/24/2024 2:00 PM CDT Plan of Treatment Upcoming Encounters Date Type Department Care Team (Late st Contact Info) Description 10/23/2024 1:20 PM CDT Office Visit [facility] Rheumatology- [place] Choudhary Griselda [address] [facility] [address] [place] [address] Liliam Dillon PA [address] [facility] [address] [place] [address] 04/25/2025 10:30 AM RN CHARGE Telephone Check Up [facility] Gastroenterology- [place] [address] [place] [address] Jessica Cooper NP [address] [place] [address] Health Maintenance Due Date Last Done Comments HEPATITIS B VACCINES (1 of 3 - 19+ 3-dose series) 07/26/1994 DTAP/TDAP/TD VACCINES (1 - Tdap) 01/16/2017 01/16/20 17 COVID-19 Vaccine (4 - 2023-2 5 season) 2023 09/10/2021, 05/22/2020, 04/24/2020 INFLUENZA VACCINE (#1) 2024 , 06/01/2023, 04/08/2022, Additional history exists Preventative Visit-Managed Medicaid 11/23/2024 11/23/2023 Pre-Diabetes and Diabetes Screening 11/22/2026 11/23/2023, 11/27/2020, 03/04/2019, Additional history exists Abdominal Aortic Aneurysm (A AA) Screening Completed 05/02/2018 COLORECTAL SCREENING Discontinued 06/22/2023, 06/22/19 24 Colorectal Cancer Screening Discontinued FIT-DNA Q 3 years Discontinued FIT/FOBT Q 1 year Discontinued Flex Sig/CT Colonography Q 5 years Discontinued Procedures Procedure Name Priority Date/Time Associated Diagnosis Comments COMPREHENSIVE METABOLIC PANEL Routine 07/24/2024 2:39 PM CDT High risk medication use CBC WITH DIFFERENTIAL Routine 07/24/2024 2:39 PM CDT High risk medication use HEMOGLOBIN A1C Routine 11/23/2023 1:59 PM CDT Normal routine physical examination COLONOSCOPY REPORT 06/22/2023 3: 22 PM CDT US ABDOMEN COMPLETE Routine 05/02/2018 1 2:00 AM RN CHARGE Acute generalized abdominal pain from Last 3 Months or Most Recently Relevant to Health Maintenance Results * (ABNORMAL) CBC WITH DIFFERENTIAL (07/24/2024 2:39 PM CDT) WBC 10.2 3.8 - 10.8 Thousand/u L [facility] RBC 4.20 4.20 - 5.80 Million/uL [facility] HEMOGLOBIN 12.4(L) 13.2 - 17.1 g/dL [facility] HEMATOCRIT 38.2(L) 38.5 - 50.0 % [facility] MCV 91.0 80.0 - 100.0 fL [facility] MCH 29.5 27.0 - 33.0 pg [facility] MCHC 32.5 32.0 - 36.0 g/dL [facility] Comment: For adults, a slight decrease in the calculated MCHC value (in the range of 30 to 32 g/dL) is most likely not clinically significant; however, it should be interpreted with caution in correlation with other red cell parameters and the patient's clinical condition. RDW 14.2 11.0 - 15.0 % [facility] PLATELETS 373 140 - 400 Thousand/u L [facility] MPV 10.5 7.5 - 12.5 fL [facility] NEUTROPHIL ABSOLUTE 7,517 1,500 - 7,800 cells/uL [facility] LYMPHOCYTE ABSOLUTE 1,204 850 - 3,900 cells/uL [facility] MONOCYTE ABSOLUTE 1,183(H) 200 - 950 cells/uL [facility] EOSINOPHIL ABSOLUTE 214 15 - 500 cells/uL [facility] BASOPHILS ABSOLUTE 82 0 - 200 cells/uL [facility] NEUTROPHIL 73.7 % [facility] LYMPHOCYTES 11.8 % [facility] MONOCYTE 11.6 % [facility] EOSINOPHILS 2.1 % [facility] BASOPHILS 0.8 % [facility] Comment: FASTING:NO FASTING: NO Test Performed at: [facility] [address] [place] [address] Herbie Londono Blood 07/24/2024 2:39 PM CDT 07/24/2024 2:40 PM CDT us Liliam Dillon PA HEMATOLOGY ORDERABLES Final Resu lt [facility] [phone] [facility] [address] [place] [address] * (ABNORMAL) COMPREHENSIVE METABOLIC PANEL (07/24/2024 2:39 PM CDT) GLUCOSE 99 65 - 139 mg/dL [facility] Comment: Non-fasting reference interval BUN 10 7 - 25 mg/dL [facility] CREATININE 0.75 0.60 - 1.29 mg/dL [facility] GFR 111 > OR = 60 mL/min/1. 73m2 [facility] BUN/CREAT RATIO SEE NOTE: 6 - (calc) [facility] Comment: Not Reported: BUN and Creatinine are within reference range. SODIUM 139 135 - 146 mmol/L [facility] POTASSIUM 3.6 3.5 - 5.3 mmol/L [facility] CHLORIDE 105 98 - 110 mmol/L [facility] CO2 30 20 - 32 mmol/L [facility] CALCIUM 8.9 8.6 - 10.3 mg/dL [facility] TOTAL PROTEIN 6.3 6.1 - 8.1 g/dL [facility] ALBUMIN 4.1 3.6 - 5.1 g/dL [facility] GLOBULIN 2.2 1.9 - 3.7 g/dL (calc) [facility] ALBUMIN/GLOBULIN RATIO 1.9 1.0 - 2.5 (calc) [facility] BILIRUBIN TOTAL 0.4 0.2 - 1.2 mg/dL [facility] ALKALINE PHOSPHATASE 97 36 - 130 U/L [facility] AST 10 10 - 40 U/L [facility] ALT 6(L) 9 - 46 U/L [facility] Comment: FASTING:NO FASTING: NO Test [facility]formed at: [facility] [address] [place] [address] Herbie Londono Blood 07/24/2024 2:39 PM CDT 07/24/2024 2:40 PM CDT us Liliam BOOKER CHEMISTRY ORDERABLES Final Resul t [facility] [phone] [facility] [address] [place] [address] * HEMOGLOBIN A1C (11/23/2023 1:59 PM CDT) HEMOGLOBIN A1C 5.5 <5.7 % of total Hgb [facility] Comment: For the purpose of screening for the presence of diabetes: <5.7% Consistent with the absence of diabetes 5.7-6.4% Consistent with increased risk for diabetes (prediabetes) > or =6.5% Consistent with diabetes This assay result is consistent with a decreased risk of diabetes. Currently, no consensus exists regarding use of hemoglobin A1c for diagnosis of diabetes in children. According to [place] Diabetes Association (ADA) guidelines, hemoglobin A1c <7.0% represents optimal control in non- diabetic patients. Different metrics may apply to specific patient populations. Standards of Medical Care in Diabetes(ADA). ESTIMATED AVERAGE GLUCOSE (MG/DL) 111 mg/dL [facility] ESTIMATED AVERAGE GLUCOSE (MMOL/L) 6.2 mmol/L [facility] Comment: This test was performed on the Jorden kurtis c503 platform. Effective 06/12/23, a change in test platforms from the [employer] Tender to the Jorden kurtis c503 may have shifted HbA1c results compared to historical results. Based on laboratory validation testing conducted at [facility], the Jorden platform relative to the Sanders platform had an average increase in HbA1c value of < or = 0.3%. This difference is within accepted variability established by the National Glycohemoglobin Standardization Program. Note that not all individuals will have had a shift in their results and direct comparisons between historical and current results for testing conducted on different platforms is not recommended. FASTING:NO FASTING: NO Test Performed at: [facility] [address] [place] [id number] Oral Parham MD Blood 11/23/2023 1:59 PM CDT 11/23/2023 2:00 PM CDT Melisa Curiel TIME CLOCK MECHANIC CHEMISTRY ORDERABLES Final Result [facility] [phone] [facility] [address] [place] [address] * COLONOSCOPY REPORT (06/22/2023 3:22 PM CDT) Narrative Procedure Note Geraldo Torrez DO - 06/22/2023 3:22 PM CDT [facility] Patient Name: Devonet Roberts Procedure Date: 06/22/2023 Date of : 1975 Admit Type: Outpatient Age: 47 Attending MD: Geraldo Torrez DO, Procedure: Colonoscopy Indications: Screening for colorectal malignant neoplasm Providers: Geraldo Torrez DO Referring MD: Luz Maria Peralta DO Medicines: Propofol per Anesthesia Complications: No immediate complications. Procedure: After I obtained informed consent, the scope was passed under direct vision. Throughout the procedure, the patient's blood pressure, pulse, and oxygen saturations were monitored continuously. The Colonoscope was introduced through the anus and advanced to the cecum, identified by appendiceal orifice and ileocecal valve. The colonoscopy was performed without difficulty. The patient tolerated the procedure well. The quality of the bowel preparation was excellent. Estimated Blood Loss: Estimated blood loss was minimal. Findings: A 10 mm polyp was found in the ascending colon. The polyp was sessile. The polyp was removed with a saline injection-lift technique using a hot snare. The polyp was removed with a piecemeal technique using a cold snare. Polyp resection was incomplete. The resected tissue was retrieved. Area was tattooed with an injection of 2 mL of Jennifer ink. Three sessile polyps were found in the transverse colon. The polyps were 4 to 12 mm in size. These polyps were removed with a cold snare. Resection and retrieval were complete. Impression: - One 10 mm polyp in the ascending colon, removed using injection-lift and a hot snare and removed piecemeal using a cold snare. Incomplete resection. Resected tissue retrieved. Tattooed. - Three 4 to 12 mm polyps in the transverse colon, removed with a cold snare. Resected and retrieved. Recommendation: - Patient has a contact number available for emergencies. The signs and symptoms of potential delayed complications were discussed with the patient. Return to normal activities tomorrow. Written discharge instructions were provided to the patient. - Resume previous diet. - Continue present medications. - Repeat colonoscopy date to be determined after pending pathology results are reviewed for surveillance. Geraldo Torrez DO 06/22/2023 3:22:29 PM Number of Addenda: 0 Note Initiated On: 06/22/2023 2:45 PM Scope Withdrawal Time 0 hours 23 minutes 57 seconds Scope In: 2:52:37 PM Scope Out: 3:19:10 PM [address] [place], [place] Geraldo Torrez DO GI PROCEDURE ORDERABLES Final Result * US ABDOMEN COMPLETE (05/02/2018 12:00 AM RN CHARGE) Anatomical Region Laterality Modality Abdomen Other Bon Madrigal MD ORDERABLES Final Result from Last 3 Months or Most Recently Relevant to Health Maintenance Insurance MEDICAID [place] Advance Directives For more information, please contact: [phone] * Full Code (Latest Code Status on File) Date Activated Date Inactivated Comments 01/01/2024 10:18 PM 01/03/2024 1:42 PM * Full Code Date Activated Date Inactivated Comments 01/01/2024 11:37 AM 01/01/2024 10:18 PM * Full Code Date Activated Date Inactivated Comments 06/22/2023 1:50 PM 06/22/2023 5:59 PM Care Teams Wildlife Conservationist Relationship Specialty Start Date End Date Luz Maria Peralta DO [address] [place] [address] PCP - General Family Practice 11/29/20
--- OUTSIDE RECORDS SUMMARY | 2024-10-18 06:55 | XMS_ITS | Encounter Summary ---
Author Organization [facility] Address [address] [place] [address] Care Team Providers Care Boilermaker Name Role Phone Luz Maria Peralta DO Primary Care Provider [phone] Reason for Visit * Reason Onset Date Comments Pt Jinny 11/22/2023 Encounter Details Date Type Department Care Team (Late Contact Info) Description 11/22/2023 Telephone [facility] Gen Spec [place] [facility] [address] [place] [address] Marshall Stearns MD [address] [place] [address] Pt Jinny Social History Tobacco Use Types Packs/Day Years Used Date Smoking Tobacco: Former Cigarettes Smokeless Tobacco: Never Comments:trying to quit Alcohol Use Standard Drinks/Week Comments Yes 1 (1 standard drink = 0.6 oz pur e alcohol) Sex and Gender Information Value Date Recorded Sex Assigned at Not on file Legal Sex Male 11:28 PM 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 [phone] documented in this encounter Plan of Treatment Upcoming Encounters Date Type Department Care Team ([facility] Contact Info) Description 10/23/2024 1:20 PM CDT Office Visit [facility] Rheumatology- True Choudhary Marrero [address] [place] [address] Liliam Dillon PA [address] [facility] [address] [place] [address] 04/25/2025 10:30 AM LICENSED CLUB MANAGER Telephone Check Up [facility] Gastroenterology- [place] [address] [place] [address] Jessica Cooper, DAYO [address] [place] [address] documented as of this encounter Visit Diagnoses Not on filedocumented in this encounter Additional Health Concerns Assessment Noted Time PHQ-9 Depression Total Score: 2 06/16/19 19 4:48 PM CDT documented as of this encounter Care Teams Boilermaker Relationship Specialty Start Date End Date Luz Maria Peralta DO [address] [place] [address] PCP - General Family Practice 11/29/20 documented as of this encounter
--- OUTSIDE RECORDS SUMMARY | 2024-10-18 06:55 | XMS_ITS | Encounter Summary ---
Author Organization [facility] Address [address] [place] [address] Care Team Providers Care Fishing Hand Name Role Phone Luz Maria Peralta DO Primary Care Provider [phone] Encounter Details Date Type Department Care Team (Late Contact Info) Description 10/09/2024 External Device Data [facility] ABSTRACTION Provider, Abstract NO ADDRESS ON FILE Social History Tobacco Use Types Packs/Day Years Used Date Smoking Tobacco: Every Day Cigarettes Passive Smoke Exposure: Current Smokeless Tobacco: Never Comments:trying to quit Alcohol Use Standard Drinks/Week Comments Yes 1 (1 standard drink = 0.6 oz pur e alcohol) Sex and Gender Information Value Date Recorded Sex Assigned at Not on file Legal Sex Male 11:28 PM 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 [place] [address] Jessica Cooper NP [address] [place] [address] documented as of this encounter Visit Diagnoses Not on filedocumented in this encounter Care Teams Fishing Hand Relationship Specialty Start Date End Date Luz Maria Peralta DO [address] [place] [phone] PCP - General Family Practice 11/29/20 documented as of this encounter
--- OUTSIDE RECORDS SUMMARY | 2024-10-18 06:55 | XMS_ITS | Encounter Summary ---
Author Organization [facility] Address [address] [place] [address] Care Team Providers Care Truss Driver Helper Name Role Phone Luz Maria Peralta DO Primary Care Provider [phone] Reason for Visit * Reason Comments Med Refill Encounter Details Date Type Department Care Team ([facility] Contact Info) Description 10/11/2024 Refill [facility] [address] [place] [phone] Luz Maria Peralta DO [address] [place] [address] Social History Tobacco Use Types Packs/Day Years Used Date Smoking Tobacco: Every Day Cigarettes Passive Smoke Exposure: Current Smokeless Tobacco: Never Comments:trying to quit Alcohol Use Standard Drinks/Week Comments Yes 1 (1 standard drink = 0.6 oz pur e alcohol) Sex and Gender Information Value Date Recorded Sex Assigned at Not on file Legal Sex Male 11:28 PM BUNDLE TIER Gender Identity Not on file Sexual Orientation Not on file documented as of this encounter Miscellaneous Notes * Telephone Encounter - Mireille Yancey LPN - 10/11/2024 3:36 PM CDT Medication Refill Request Last Fill Date:09/08/23 #[id number] with 3 RF ENMA 07/23/24 Last labs 04/26/24 Recent and Future Visits: Recent Visits Date Type Provider Dept 07/23/24 Office Visit June, [facility] Family [facility] 07/09/24 Office Visit June, [facility] 06/27/24 Office Visit June, [facility] [place] 04/26/24 Office Visit Melisa Curiel, [facility] [place] 01/05/24 Office Visit Melisa Curiel, [facility] [place] 11/23/23 Office Visit Melisa Curiel, [facility] [place] 10/17/23 Video Visit Melisa Curiel, [facility] [place] 09/05/23 Office Visit Melisa Curiel Taiwo, [facility] [place] 08/24/23 Video Visit Melisa Curiel, [facility] [place] 06/29/23 Office Visit Melisa Curiel, [facility] [place] Showing recent visits within past 540 days with a meds authorizing provider and meeting all other requirements Future Appointments No visits were found meeting these conditions. Showing future appointments within next 365 days with a meds authorizing provider and meeting all other requirements Last Labs: Lab Results Component Value Date/Time CREAT 0.75 07/24/2024 02:39 PM BUN 10 07/24/2024 02:39 PM NA 139 07/24/2024 02:39 PM K 3.6 07/24/2024 02:39 PM CL 105 07/24/2024 02:39 PM CO2 30 07/24/2024 02:39 PM GFR 111 07/24/2024 02:39 PM Devonte Roberts - 1975 Check and review of the [place] PDMP performed on 10/11/2024 at 3:36 PM was documented in this encounter Plan of Treatment Upcoming Encounters Date Type Department Care Team (Late st Contact Info) Description 10/23/2024 1:20 PM CDT Office Visit [facility] Rheumatology- True Villalobos [address] [place] [address] Liliam Dillon PA [address] [place] [address] 04/25/2025 10:30 AM BUNDLE TIER Telephone Check Up [facility] Gastroenterology- [place] [address] [facility] [address] [place] [address] Jessica Cooper, WOODWORK SALVAGE INSPECTOR [address] [place] [address] documented as of this encounter Visit Diagnoses Not on filedocumented in this encounter Care Teams Truss Driver Helper Relationship Specialty Start Date End Date Luz Maria Peralta DO [address] [place] [address] PCP - General Family Practice 11/29/20 documented as of this encounter
--- OUTSIDE RECORDS SUMMARY | 2024-10-18 06:55 | XMS_ITS | Encounter Summary ---
Author Organization [facility] Address [address] [place] [address] Care Team Providers Care Mainframe Systems Programmer Name Role Phone Bon Madrigal MD Primary Care Provider Encounter Details Date Type Department Care Team (Late st Contact Info) Description 06/07/[address] [facility] ([place] [place] [address] [place] [phone] Yenny Anderson NP [address] [place] [address] Breast pain, left Social History Tobacco Use Types Packs/Day Years Used Date Smoking Tobacco: Every Day Cigarettes Smokeless Tobacco: Never Alcohol Use Standard Drinks/Week Comments Yes 1 (1 standard drink = 0.6 oz pur e alcohol) Sex and Gender Information Value Date Recorded Sex Assigned at Not on file Legal Sex Male 2:19 PM CDT Gender Identity Not on file Sexual Orientation Not on file documented as of this encounter Plan of Treatment Not on file documented as of this encounter Visit Diagnoses Diagnosis Breast pain, left Mastodynia documented in this encounter Additional Health Concerns Assessment Noted Time PHQ-9 Depression Total Score: 2 06/16/19 19 4:48 PM CDT documented as of this encounter Care Teams Mainframe Systems Programmer Relationship Specialty Start Date End Date Bon Madrigal MD [address] [place] [phone] PCP - General Family Practice 06/27/17 documented as of this encounter
--- OUTSIDE RECORDS SUMMARY | 2024-10-18 06:55 | XMS_ITS | Encounter Summary ---
Author Organization [facility] Address [address] [place] [address] Care Team Providers Care Sheet Metal Smith Name Role Phone Luz Maria Peralta DO Primary Care Provider [phone] Reason for Visit * Reason Comments Med Refill Encounter Details Date Type Department Care Team ([facility] Contact Info) Description 10/11/2024 Refill [facility] [place] [address] [place] [phone] Liilam Dillon PA [address] [place] [phone] Social History Tobacco Use Types Packs/Day Years Used Date Smoking Tobacco: Every Day Cigarettes Passive Smoke Exposure: Current Smokeless Tobacco: Never Comments:trying to quit Alcohol Use Standard Drinks/Week Comments Yes 1 (1 standard drink = 0.6 oz pur e alcohol) Sex and Gender Information Value Date Recorded Sex Assigned at Not on file Legal Sex Male 11:28 PM GROUP ART SUPERVISOR Gender Identity Not on file Sexual Orientation Not on file documented as of this encounter Miscellaneous Notes * Telephone Encounter - Loretta Angela - 10/14/2024 10:47 AM CDT Last OV 07/24/2024 Last Labs 07/24/2024 documented in this encounter Plan of Treatment Upcoming Encounters Date Type Department Care Team ([facility] Contact Info) Description 10/23/2024 1:20 PM CDT Office Visit [facility] [place] [address] [place] [address] Liliam Dillon PA [address] [facility] [address] [place] [address] 04/25/2025 10:30 AM GROUP ART SUPERVISOR Telephone Check Up [facility] Gastroenterology- [place] [address] [place] [address] Jessica Cooper, FOREIGN EXCHANGE CLERK [address] [facility] [address] [place] [address] documented as of this encounter Visit Diagnoses Not on filedocumented in this encounter Care Teams Sheet Metal Smith Relationship Specialty Start Date End Date Luz Maria Peralta DO [address] [place] [phone] PCP - General Family Practice 11/29/20 documented as of this encounter
--- OUTSIDE RECORDS SUMMARY | 2024-10-18 06:55 | XMS_ITS | Encounter Summary ---
Author Organization [facility] Address [address] [place] [address] Care Team Providers Care Director And Professor Name Role Phone Luz Maria Peralta DO Primary Care Provider [phone] Encounter Details Date Type Department Care Team (Latest Contact Info) Description 01/05/2024 Lab Requisition [facility] Laboratory Services [place] [address] [place] [address] Melisa Curiel, 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 [place] [address] Jessica Cooper, DAYO [address] [facility] [address] [place] [address] documented as of this encounter Procedures Procedure Name Priority Date/Time Associated Diagnosis Comments CBC WITH DIFFERENTIAL Stat 01/05/2024 11:30 AM CDT Other rheumatoid arthritis with rheumatoid factor of unspecified site Personal history of other infectious and parasitic diseases Vomiting following gastrointestinal surgery COMPREHENSIVE METABOLIC PANEL Stat 01/05/2024 11:30 AM CDT Other rheumatoid arthritis with rheumatoid factor of unspecified site Personal history of other infectious and parasitic diseases Vomiting following gastrointestinal surgery documented in this encounter Results * (ABNORMAL) COMPREHENSIVE METABOLIC PANEL (01/05/2024 11:30 AM CDT) SODIUM 136 136 - 145 mmol/L 01/05/2024 11:57 AM [facility] POTASSIUM 3.7 3.5 - 5.1 mmol/L 01/05/2024 11:57 AM [facility] CHLORIDE 99 98 - 107 mmol/L 01/05/2024 11:57 AM [facility] CO2 25 22 - 29 mmol/L 01/05/2024 11:57 AM [facility] CALCIUM 9.1 8.6 - 10.0 mg/dL 01/05/2024 11:57 AM [facility] BUN 17 6 - 20 mg/dL 01/05/2024 11:57 AM [facility] CREATININE 0.82 0.67 - 1.17 mg/dL 01/05/2024 11:57 AM [facility] GLUCOSE 150(H) 74 - 99 mg/dL 01/05/2024 11:57 AM [facility] TOTAL PROTEIN 6.9 6.6 - 8.7 g/dL 01/05/2024 11:57 AM [facility] ALBUMIN 3.6 3.5 - 5.2 g/dL 01/05/2024 11:57 AM [facility] BILIRUBIN TOTAL 0.4 <=1.2 mg/dL 01/05/2024 11:57 AM [facility] ALKALINE PHOSPHATASE 82 40 - 129 U/L 01/05/2024 11:57 AM [facility] AST 36 10 - 50 U/L 01/05/2024 11:57 AM [facility] ALT 27 10 - 50 U/L 01/05/2024 11:57 AM [facility] GFR >60 >=60 mL/min/1.7 3 sq meter 01/05/2024 11:57 AM [facility] Comment:eGFR calculated with 2020 CKD-EPI equation. Vegetarian diet, extremely high or low muscle mass, and may affect results. Cystatin C with Glomerular Filtration Rate is a suitable alternative for these patients. ANION GAP 12 12 - 20 mmol/L 01/05/2024 11:57 AM [facility] Blood 01/05/2024 11:3 0 AM CDT 01/05/2024 11:30 AM CDT Melisa Curiel FOUNTAIN ROLLER ASSEMBLER CHEMISTRY ORDERABLES Final [id number] [address] [place] [address] * (ABNORMAL) CBC WITH DIFFERENTIAL (01/05/2024 11:30 AM CDT) WBC 11.3(H) 4.2 - 9.1 K/uL 01/05/2024 11:44 AM [facility] RBC 4.23(L) 4.63 - 6.08 M/uL 01/05/2024 11:44 AM [facility] HEMOGLOBIN 12.2(L) 13.7 - 17.5 g/dL 01/05/2024 11:44 AM [facility] HEMATOCRIT 35.0(L) 40.1 - 51.0 % 01/05/2024 11:44 AM [facility] MCV 82.7 79.0 - 92.2 fL 01/05/2024 11:44 AM [facility] MCH 28.8 25.7 - 32.2 pg 01/05/2024 11:44 AM [facility] MCHC 34.9 32.3 - 36.5 g/dL 01/05/2024 11:44 AM [facility] RDW 12.3 11.0 - 14.5 % 01/05/2024 11:44 AM [facility] RDW-STDEV 37.2 36.9 - 56.9 fL 01/05/2024 11:44 AM [facility] PLATELETS 372 130 - 400 K/uL 01/05/2024 11:44 AM [facility] MPV 9.5(L) 10.0 - 14.8 fL 01/05/2024 11:44 AM [facility] NEUTROPHILS 87(H) 34 - 68 % 01/05/2024 11:44 AM [facility] LYMPHOCYTES 7(L) 22 - 53 % 01/05/2024 11:44 AM [facility] MONOCYTES 5 5 - 12 % 01/05/2024 11:44 AM [facility] EOSINOPHILS 0(L) 1 - 7 % 01/05/2024 11:44 AM [facility] BASOPHILS 0 0 - 1 % 01/05/2024 11:44 AM [facility] IMMATURE GRANULOCYTES 1 % 01/05/2024 11:44 AM [facility] NEUTROPHIL ABSOLUTE 9.86(H) 1.78 - 5.38 K/uL 01/05/2024 11:44 AM [facility] LYMPHOCYTE ABSOLUTE 0.81(L) 1.20 - 3.40 K/uL 01/05/2024 11:44 AM [facility] MONOCYTE ABSOLUTE 0.53 0.30 - 0.82 K/uL 01/05/2024 11:44 AM [facility] EOSINOPHIL ABSOLUTE 0.03(L) 0.04 - 0.54 K/uL 01/05/2024 11:44 AM CDT [facility] BASOPHILS ABSOLUTE 0.02 0.01 - 0.08 K/uL 01/05/2024 11:44 AM CDT [facility] IMMATURE GRANULOCYTES ABSOLUTE 0.09 K/uL 01/05/2024 11:44 AM CDT [facility] Blood 01/05/2024 11:3 0 AM CDT 01/05/2024 11:30 AM CDT us Melisa Curiel FOUNTAIN ROLLER ASSEMBLER HEMATOLOGY ORDERABLES Nishi herrera Result [facility] CLIA # [id number] [address] [place] [id number] documented in this encounter Visit Diagnoses Diagnosis Other rheumatoid arthritis with rheumatoid factor of unspecified site (CMS/[facility]) Personal history of other infectious and parasitic diseases Vomiting following gastrointestinal surgery documented in this encounter Care Teams Director And Professor Relationship Specialty Start Date End Date Luz Maria Peralta DO [address] [place] [phone] PCP - General Family Practice 11/29/20 documented as of this encounter
--- NOTE | 2024-10-18 07:01 | W.ED.CHESTPA ---
HPI - Chest Pain General: Chief Complaint: Chest Pain Stated Complaint: chest pain Time Seen by Provider: 10/18/24 06:52 History of Present Illness: 49-year-old male presents emergency room with complaint of chest pain. Pain is reproducible with palpation across the anterior chest wall. Is also worse when he takes a deep breath no fever sweats or chills. No falls or trauma no cough or shortness of breath no hemoptysis no history of arrhythmia coronary artery disease DVT or PE Associated symptoms: Deny abdominal pain, dyspnea or fever(s) Related Data Home Medications ?Medication ?Instructions ?Recorded ?Confirmed irbesartan 300 mg tablet 300 mg PO DAILY@20 06/14/21 10/18/24 levocetirizine 5 mg tablet 5 mg PO .HS 06/15/22 10/18/24 solifenacin 5 mg tablet (Vesicare) 5 mg PO DAILY 06/15/22 10/18/24 omeprazole 40 mg capsule,delayed 40 mg PO DAILY 12/06/22 10/18/24 release hydralazine 100 mg tablet 100 mg PO BID 12/15/23 10/18/24 amlodipine 5 mg tablet 5 mg PO DAILY 10/18/24 10/18/24 spironolactone 25 mg tablet 25 mg PO DAILY 10/18/24 10/18/24 Previous Rx's ?Medication ?Instructions ?Recorded lacosamide 200 mg tablet (Vimpat) 200 mg PO BID #60 tabs 08/08/19 chlorpromazine 25 mg tablet 25 mg PO BID@07,19 #60 tabs 12/15/23 nortriptyline 50 mg capsule 50 mg PO BEDTIME@20 #30 caps 12/15/23 diclofenac sodium 75 mg 75 mg PO Q12H PRN pain #20 tabs 10/18/24 tablet,delayed release doxycycline hyclate 100 mg capsule 100 mg PO BID 10 days #20 caps 10/18/24 Allergies Allergy/AdvReac Type Severity Reaction Status Date / Time Iodinated Contrast Media Allergy Severe Coded: Verified 07/29/24 11:11 heart stopped buprenorphine (From Suboxone) Allergy Intermediate ALGY-Rash Verified 07/29/24 11:11 naloxone (From Suboxone) Allergy Intermediate ALGY-Rash Verified 07/29/24 11:11 Penicillins Allergy Intermediate Rash Verified 07/29/24 11:11 sulfamethoxazole (From Allergy Unknown Unkown Verified 07/29/24 11:11 ) trimethoprim (From Septra) Allergy Unknown Unkown Verified 07/29/24 11:11 Review of Systems Const: Denies: fever(s) or chills Card: Reports: chest pain Resp: Denies: dyspnea GI: Denies: abdominal pain : Denies: dysuria, urinary frequency or urinary urgency Musc: Denies: neck pain or back pain Skin/Breast: Denies: rash PFSH ED PFSH: Medical History Low back pain Hypertension Chronic migraine without aura, intractable, with status migrainosus Complex partial epilepsy Urolithiasis Urinary hesitancy Chronic pain Right ureteral calculus Opioid use disorder, moderate, dependence Surgical History History of orthopedic surgery Hx of knee surgery bilateral arthroscopic Family History Father , UNKNOWN AGE No problems noted. Mother , AT AGE 74 Lung disease Diabetes Congestive heart failure (CHF) Other CAD (coronary artery disease) Cancer Social History Smoking and tobacco/nicotine status: current every day tobacco/nicotine user cigarettes Packs smoked per day: 0.25 Years cigarettes smoked: 24 Quit status (tobacco/nicotine): has tried quititng Number of times tried to quit tobacco: 2 Second hand smoke exposure: Yes Alcohol intake: former Year of sobriety/quit date alcohol: 2020 Substance/Drug Use: current Other substance/drug use details: CBD- oil. Housing: Assisted Living Facility Marital status: Legally Current occupational status: disabled Current gender identity: Male Physical Exam Const: GENERAL APPEARANCE: cooperative ORIENTATION/CONSCIOUSNESS: Yes awake, Yes oriented to person, Yes oriented to place and Yes oriented to time HENMT: COMMON NORMALS: normocephalic, atraumatic and hearing grossly normal bilaterally HEAD & SCALP: normocephalic and atraumatic Chest: OTHER: Anterior chest wall tender with palpation across the lower sternal area and lower left chest. Also exacerbated by deep inspiration Resp: COMMON NORMALS: normal respiratory effort, No retractions, No use of accessory muscles and clear to auscultation bilaterally AUSCULTATION: clear to auscultation bilaterally Cardio: COMMON NORMALS: regular rate, regular rhythm and No murmurs present (Cardio) RATE: regular rate RHYTHM: regular rhythm GI: COMMON NORMALS: Soft to palpation and No hepatosplenomegaly present AUSCULTATION: Yes normoactive bowel sounds PALPATION: Yes Soft to palpation, No Tenderness to palpation present (GI), No Guarding due to palpation present (GI) and Yes No hepatosplenomegaly present Extremity: COMMON NORMALS: normal to inspection, capillary refill normal, no clubbing, cyanosis or edema, no calf tenderness and no pedal edema Neuro: SENSORIUM/ORIENTATION: Yes oriented to person, Yes oriented to place and Yes oriented to time Skin: COMMON NORMALS: no rashes or lesions noted GENERAL SKIN EXAM: no rashes or lesions noted Course Vital Signs: Vital signs: Vital Signs Temperature 97.4 F L 10/18/24 06:53 Pulse Rate 94 10/18/24 10:20 Respiratory Rate 16 10/18/24 10:20 Blood Pressure 109/75 10/18/24 10:20 Pulse Oximetry 93 10/18/24 10:20 Oxygen Delivery Me thod Room Air 10/18/24 06:53 MDM - Chest Pain Medical Decision Making Labs and imaging reviewed EKG does not show any acute changes. Question on the chest x-ray of patchy infiltrate will start on doxycycline for now. Cardiac enzymes trended negative. Will discharge patient home with doxycycline and have patient follow-up with his primary care doctor. Patient's chest wall pain is very reproducible and musculoskeletal in nature worse with deep inspiration and with palpation diclofenac for this follow-up as needed Medical Records I reviewed the patient's medical records. Lab Data I reviewed the patient's lab results. 10/18/24 07:04 10/18/24 07:04 Radiology Impressions Chest X-Ray 10/18/24 06:54 Impression: 1. Patchy opacity in retrocardiac region which could represent atelectasis and/or pneumonia. 2. Cardiomegaly. 3. Small left pleural effusion. Laboratory Results WBC 17.16 10^3/uL (3.29-11.43) H 10/18/24 07:04 RBC 4.65 10^6/uL (3.85-5.65) 10/18/24 07:04 Hgb 13.60 g/dL (11.27-16.99) 10/18/24 07:04 Hct 41.0 % (37-53) 10/18/24 07:04 MCV 88.2 fl (82-101) 10/18/24 07:04 MCH 29.2 pg (27-33) 10/18/24 07:04 MCHC 33.2 g/dL (30-55) 10/18/24 07:04 RDW 15.4 % (12.1-15.1) H 10/18/24 07:04 Plt Count 432 10^3/cmm (157-399) H 10/18/24 07:04 MPV 9.2 fL (7.4-10.4) 10/18/24 07:04 Neut % (Auto) 81.7 % 10/18/24 07:04 Lymph % (Auto) 5.4 % 10/18/24 07:04 Baker % (Auto) 10.2 % 10/18/24 07:04 Eos % (Auto) 0.7 % 10/18/24 07:04 Baso % (Auto) 0.5 % 10/18/24 07:04 Neut # (Auto) 14.02 10^3/uL (1.8-7.7) H 10/18/24 07:04 Lymph # (Auto) 0.9 10^3/uL (0.8-4.8) 10/18/24 07:04 Baker # (Auto) 1.8 10^3/uL (0.2-0.9) H 10/18/24 07:04 Eos # (Auto) 0.1 10^3/uL (0.0-0.8) 10/18/24 07:04 Baso # (Auto) 0.1 10^3/uL (0.0-0.1) 10/18/24 07:04 Nucleated RBC % (auto) 0 % 10/18/24 07:04 Nucleated RBCs # 0.0 /100WBC 10/18/24 07:04 Sodium 134 mmol/L (136-145) L 10/18/24 07:04 Potassium 4.0 mmol/L (3.5-5.1) 10/18/24 07:04 Chloride 98 mmol/L (98-107) 10/18/24 07:04 Carbon Dioxide 20 mmol/L (22-29) L 10/18/24 07:04 Anion Gap 20.0 (5-19) H 10/18/24 07:04 BUN 7 mg/dL (6-20) 10/18/24 07:04 Creatinine 0.9 mg/dL (0.7-1.2) 10/18/24 07:04 GFR Calculation 89.7 mL/min (90-130) L 10/18/24 07:04 Glucose 129 mg/dL (65-115) H 10/18/24 07:04 Calculated Osmolality 278 mOsm/kg (285-295) L 10/18/24 07:04 Calcium 9.2 mg/dL (8.5-10.5) 10/18/24 07:04 Total Bilirubin 0.7 mg/dL (0.15-1.2) 10/18/24 07:04 AST 12 U/L (0-40) 10/18/24 07:04 ALT < 5 U/L (0-41) 10/18/24 07:04 Alkaline Phosphatase 107 U/L (40-130) 10/18/24 07:04 Troponin T Baseline 16 ng/L (0-15) H 10/18/24 07:04 Troponin T 120 Minute 13.96 ng/L (0-15) 10/18/24 09:05 Delta Troponin T -2.04 ABS# (0-10) L 10/18/24 09:05 Total Protein 6.8 g/dL (6.6-8.7) 10/18/24 07:04 Albumin 4.0 g/dL (3.5-5.2) 10/18/24 07:04 Globulin 2.8 g/dL (1.3-4.6) 10/18/24 07:04 All radiology interpretation(s) finalized by discharge Discharge Plan Discharge Patient Disposition: Home Clinical Impression: Pneumonia, Chest wall pain Condition: Stable Prescriptions: New doxycycline hyclate 100 mg capsule 100 mg PO BID 10 Days Qty: 20 0RF diclofenac sodium 75 mg tablet,delayed release (DR/EC) 75 mg PO Q12H PRN (Reason: pain) Qty: 20 0RF No Action Vimpat 200 mg tablet 200 mg PO BID Qty: 60 5RF chlorpromazine 25 mg tablet 25 mg PO BID@07,19 Qty: 60 11RF nortriptyline 50 mg capsule 50 mg PO BEDTIME@20 Qty: 30 11RF solifenacin [Vesicare] 5 mg tablet 5 mg PO DAILY levocetirizine 5 mg tablet 5 mg PO .HS hydralazine 100 mg tablet 100 mg PO BID omeprazole 40 mg capsule,delayed release(DR/EC) 40 mg PO DAILY irbesartan 300 mg Tablet 300 mg PO DAILY@20 amlodipine 5 mg tablet 5 mg PO DAILY spironolactone 25 mg tablet 25 mg PO DAILY Discharge Orders: Discharge ED (Routine); Ordered 10/18/24 Ordered By: Johan Holley Referrals: Luz Maria Peralta DO [Primary Care Provider, Family Practice] Discharge Diet: Usual diet Discharge Activity: Resume usual activity Patient Instructions: Opioid Safety, Pain Management, Patient Portal & Susana Instructions Activity Restrictions/Additional Instructions: Thank you for choosing [facility] for your healthcare needs today. It is very important that you follow up as instructed or that you return to the Emergency Department should you have concerns or if your condition changes or worsens in any way. You were seen in the emergency room complaint of chest pain. Chest pain is reproducible with inspiration and with palpation ingestion is musculoskeletal in nature EKGs and cardiac enzymes are negative. Chest x-ray showed an area of questionable pneumonia we will recommend he start an oral antibiotic for this for 1 pill twice a day for 10 days follow-up your primary care doctor Print Language: French Coding Level of Care Code ED Cartridge Assembler for Isaias Pyle
[2024-10-18 07:09] LABS: Hematocrit 41.0 % (37-53); Hemoglobin 13.60 g/dL (11.27-16.99); Mean Corpuscular HGB Conc 33.2 g/dL (30-55); Mean Corpuscular Hemoglobin 29.2 pg (27-33); Mean Corpuscular Volume 88.2 fl (82-101); Nucleated Red Blood Cells % 0 %; Platelet Count 432 10^3/cmm (157-399); Red Blood Count 4.65 10^6/uL (3.85-5.65); White Blood Count 17.16 10^3/uL (3.29-11.43)
[2024-10-18 07:27] LABS: Troponin(5th) Baseline 16 ng/L (0-15)
[2024-10-18 07:30] LABS: Alanine Aminotransferase < 5 U/L (0-41); Albumin Level 4.0 g/dL (3.5-5.2); Alkaline Phosphatase 107 U/L (40-130); Anion Gap 20.0 (5-19); Aspartate Amino Transferase 12 U/L (0-40); Blood Urea Nitrogen 7 mg/dL (6-20); Calcium 9.2 mg/dL (8.5-10.5); Carbon Dioxide 20 mmol/L (22-29); Chloride 98 mmol/L (98-107); Creatinine Clr Calc Pharmacy 92.5869; Globulin 2.8 g/dL (1.3-4.6); Glucose 129 mg/dL (65-115); Osmolality Calculated 278 mOsm/kg (285-295); Potassium 4.0 mmol/L (3.5-5.1); Sodium 134 mmol/L (136-145); Total Protein 6.8 g/dL (6.6-8.7)
--- NOTE | 2024-10-18 08:54 | ECG_ITS ---
[facility] Test Date: 2024-10-18 Pat Name: Devonte Roberts Department: Room: Gender: Male Foster Care Case Manager: : 1975 Requested By: Johan Akers Order Number: [id number] Arpita MD: Ryan Archibald M.D. Measurements Intervals Scott Rate: 86 P: 13 IL: 168 QRS: 3 QRSD: 102 T: 19 QT: 433 QTc: 520 Interpretive Statements SINUS RHYTHM NONSPECIFIC T-WAVE ABNORMALITY PROLONGED QT INTERVAL Compared to ECG 10/18/2024 06:47:51 Prolonged QT interval now present T-wave abnormality still present Electronically Signed On 10-19-2024 08:46:44 CDT by Ryan Archibald M.D. [email or web address]
[2024-10-18 09:27] LABS: Troponin 5 2HR 13.96 ng/L (0-15); Troponin 5 2HR Delta -2.04 ABS# (0-10)
== END 2024-10-18 10:24 | disposition home or self-care (01) ==
PROVIDERS: Emergency Provider Family Medicine; PCP Family Medicine
DX: J18.9 Pneumonia, unspecified organism (principal); R07.89 Other chest pain; F17.210 Nicotine dependence, cigarettes, uncomplicated; I10 Essential (primary) hypertension
CPT/HCPCS: 71045; 80053; 84484; 85025; 93005; 96374; 99285; J1885; J9999

== ENCOUNTER 2024-10-30 19:13 | Emergency (ER) | payer MEDICAID, SELFPAY ==
[2024-01-09 13:25] VITALS: BP 122/69; BMI 32.4
--- NOTE | 2024-10-30 19:14 | XRR_ITS ---
PROCEDURE INFORMATION: Exam: XR Chest Exam date and time: 10/30/2024 7:29 PM Age: 49 years old Clinical indication: Shortness of breath; Additional info: SOB TECHNIQUE: Imaging protocol: Radiologic exam of the chest. Views: 1 view. COMPARISON: CR XR chest 1V portable [id number] 10/18/2024 6:56 AM FINDINGS: Lungs: Persistent small pleural effusion and streaky opacity at the left lung base, nonspecific although commonly chronic. Pleural spaces: Persistent small pleural effusion and streaky opacity at the left lung base, nonspecific although commonly chronic. Heart/Mediastinum: Unremarkable. No cardiomegaly. Bones/joints: Query old fractures of the left mid to lower ribs, not well visualized. XR/XR chest 1V portable [id number] IMPRESSION: Persistent small pleural effusion and streaky opacity at the left lung base, nonspecific although commonly chronic.
--- NOTE | 2024-10-30 19:14 | ECG_ITS ---
[facility] Test Date: 2024-10-30 Pat Name: Devonte Roberts Department: Room: Gender: Male Team Facilitator: : 1975 Requested By: Giuliana Person Order Number: [id number] Palm MD: Latia Rodriguez M.D. Measurements Intervals [place] Rate: 78 P: 16 NC: 179 QRS: 11 QRSD: 113 T: 34 QT: 409 QTc: 467 Interpretive Statements SINUS RHYTHM MODERATE INTRAVENTRICULAR CONDUCTION DELAY [110+ ms QRS DURATION] NONSPECIFIC ST-T-WAVE ABNORMALITY Compared to ECG 10/18/2024 08:57:39 Intraventricular conduction delay now present Prolonged QT interval no longer present T-wave abnormality still present Electronically Signed On 10-30-2024 22:46:47 CDT by Latia Rodriguez M.D. [id number]
[2024-10-30 19:22] VITALS: BP 124/84; PULSE 82; RESP 22; TEMP 36.7; O2SAT 95
--- OUTSIDE RECORDS SUMMARY | 2024-10-30 19:22 | XMS_ITS | Encounter Summary ---
Author Organization [facility] Address 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 Gastroenterology- Jennifer [address] [place] [phone] Jessica Cooper NP [address] [facility] [address] [place] [address] documented as of this encounter Procedures Procedure Name Priority Date/Time Associated Diagnosis Comments COMPREHENSIVE METABOLIC PANEL Routine 10/18/2024 1:05 PM CDT documented in this encounter Results * COMPREHENSIVE METABOLIC PANEL (10/18/2024 1:05 PM CDT) Blood us Abstract Provider CHEMISTRY ORDERABLES Final Res ult documented in this encounter Visit Diagnoses Not on filedocumented in this encounter Care Teams Music Therapy Specialist Relationship Specialty Start Date End Date Luz Maria Peralta DO [address] [place] [address] PCP - General Family Practice 11/29/20 documented as of this encounter
--- OUTSIDE RECORDS SUMMARY | 2024-10-30 19:22 | XMS_ITS | Clinical Summary ---
Author Organization [facility] Address [address] [place] [phone] Care Team Providers Care Translator Deaf Name Role Phone Bon Madrigal MD Primary [...] mouth. Active fluticasone propionate (FLONASE) 50 mcg/spray Padroni, Suspension nasal inhaler 2 SPRAY EACH NOSTRIL [...] Comments Blood Pressure 110/70 02/27/2020 11:55 AM FIELD HAULER Pulse 84 02/27/2020 11:55 AM FIELD HAULER Temperature 36.6 C (97.8 F) 02/27/2020 11:55 AM FIELD HAULER Respiratory Rate 20 02/27/2020 11:55 AM FIELD HAULER Oxygen Saturation 98% 02/27/2020 11:55 AM FIELD HAULER Inhaled Oxygen Concentration - - Weight 83.2 kg (183 lb 6.4 oz) 02/27/2020 11:55 AM FIELD HAULER Height 165.1 cm (5' 5 ) 02/27/2020 11:55 AM FIELD HAULER Body Mass Index 30.52 02/27/2020 11:55 AM FIELD HAULER Plan of Treatment Health Maintenance Due Date [...] Comments HEMOGLOBIN A1C Routine 03/04/2019 8:43 AM FIELD HAULER Hyperglycemia from Last 3 Months or Most Recently Relevant to Health Maintenance Results * HEMOGLOBIN A1C (03/04/2019 8:43 AM FIELD HAULER) HEMOGLOBIN A1C 5.3 See Comment % 03/04/2019 8:30 PM FIELD HAULER [facility] EST. AVG GLUCOSE, A1C 105 mg/dL 03/04/2019 8:30 PM FIELD HAULER [facility] Blood Venipuncture / Unknown 03/04/2019 8:43 AM FIELD HAULER 03/04/2019 8:08 PM FIELD HAULER Narrative [facility] - 03/04/2019 8:30 PM FIELD HAULER HGB A1C INTERPRETATION NORMAL: <5.7% PRE-DIABETES: 5.7 - 6.4% DIABETES: 6.5% OR GREATER Falsely low A1C measurements can occur when: 1. Anemia and/or hemolytic anemia is present. 2. Hemoglobin variants present. 3. Renal failure. 4. Transfusion of blood product in the last 120 days. We recommend ordering a fructosamine test([id number]) to more accurately assess glycemic status if any of the above conditions are present. Bon Madrigal MD CHEMISTRY ORDERABLES Final Resu lt [facility]# [id number] [address] [place] [address] from Last 3 Months or Most Recently Relevant to Health Maintenance Insurance MEDICAID [place] Advance Directives For more information, please contact: [phone] * Full Code (Latest Code Status on File) Date Activated Date Inactivated Comments 07/28/2017 7:41 PM 07/29/2017 5:20 PM Care Teams Translator Deaf Relationship Specialty Start Date End Date Bon Madrigal MD [address] [place] [address] PCP - General Family Practice 06/27/17
--- OUTSIDE RECORDS SUMMARY | 2024-10-30 19:22 | XMS_ITS | Encounter Summary ---
Author Organization [facility] Address [address] [place] [address] Care Team Providers Care Tuck Pointer Helper Name Role Phone Luz Maria Peralta DO Primary Care Provider [phone] Reason for Visit * Reason Onset Date Comments Pt Jinny 11/22/2023 Encounter Details Date Type Department Care Team (Late Contact Info) Description 11/22/2023 Telephone [facility] Gen Spec Surg [address] [place] [address] Marshall Stearns MD [address] [facility] [address] [place] [address] Pt Jinny Social History Tobacco Use Types Packs/Day Years Used Date Smoking Tobacco: Former Cigarettes Smokeless Tobacco: Never Comments:trying to quit Alcohol Use Standard Drinks/Week Comments Yes 1 (1 standard drink = 0.6 oz pur e alcohol) Sex and Gender Information Value Date Recorded Sex Assigned at Not on file Legal Sex Male 11:28 PM ECO 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 [phone] documented in this encounter Plan of Treatment Upcoming Encounters Date Type Department Care Team ([facility] Contact Info) Description 04/25/2025 10:30 AM ECO INDUSTRIAL DEVELOPMENT CONSULTANT Telephone Check Up [facility] Gastroenterology- Jennifer [address] [facility] [address] [place] [phone] Jessica Cooper, SALESPERSON FLYING SQUAD [address] [facility] [address] [place] [address] documented as of this encounter Visit Diagnoses Not on filedocumented in this encounter Additional Health Concerns Assessment Noted Time PHQ-9 Depression Total Score: 2 06/16/19 19 4:48 PM CDT documented as of this encounter Care Teams Tuck Pointer Helper Relationship Specialty Start Date End Date Luz Maria Peralta DO [address] [place] [address] PCP - General Family Practice 11/29/20 documented as of this encounter
--- OUTSIDE RECORDS SUMMARY | 2024-10-30 19:22 | XMS_ITS | Encounter Summary ---
Author Organization [facility] Address [address] [place] [address] Care Team Providers Care Pool Lifeguard Name Role Phone Bon Madrigal MD Primary Care Provider [phone] Encounter Details Date Type Department Care Team (Late st Contact Info) Description 06/07/2019 Ancillary Orders [facility] [address] [place] [phone] Yenny Anderson NP [address] [place] [phone] Breast pain, left Social History Tobacco Use [...] documented as of this encounter Care Teams Pool Lifeguard Relationship Specialty Start Date End Date Bon Madrigal MD [address] [place] [phone] PCP - General Family Practice 06/27/17 documented as of this encounter
--- OUTSIDE RECORDS SUMMARY | 2024-10-30 19:22 | XMS_ITS | Encounter Summary ---
Author Organization [facility] Address 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 [facility] [address] [place] [address] Jessica Cooper NP [address] [facility] [address] [place] [address] documented as of this encounter [...] 136 - 145 mmol/L 01/05/2024 11:57 AM [facility] POTASSIUM 3.7 3.5 - 5.1 mmol/L 01/05/2024 11:57 AM [facility] CHLORIDE 99 98 - 107 mmol/L 01/05/2024 11:57 AM [facility] CO2 25 22 - 29 mmol/L 01/05/2024 11:57 AM [facility] CALCIUM 9.1 8.6 - 10.0 mg/dL 01/05/2024 11:57 AM [facility] BUN 17 6 - 20 mg/dL 01/05/2024 11:57 AM [facility] CREATININE 0.82 0.67 - 1.17 mg/dL 01/05/2024 11:57 AM [facility] GLUCOSE 150(H) 74 - 99 mg/dL 01/05/2024 11:57 AM [facility] TOTAL PROTEIN 6.9 6.6 - 8.7 g/dL 01/05/2024 11:57 AM [facility] ALBUMIN 3.6 3.5 - 5.2 g/dL 01/05/2024 11:57 AM [facility] BILIRUBIN TOTAL 0.4 <=1.2 mg/dL 01/05/2024 11:57 AM [facility] ALKALINE PHOSPHATASE 82 40 - 129 U/L 01/05/2024 11:57 AM [facility] AST 36 10 - 50 U/L 01/05/2024 11:57 AM T [facility] ALT 27 10 - 50 U/L 01/05/2024 11:57 AM [facility] GFR >60 >=60 mL/min/1.7 3 sq meter 01/05/2024 11:57 AM [facility] Comment:eGFR calculated with 2020 CKD-EPI equation. Vegetarian diet, extremely high or low muscle mass, and may affect results. Cystatin C with Glomerular Filtration Rate is a suitable alternative for these patients. ANION GAP 12 12 - 20 mmol/L 01/05/2024 11:57 AM [facility] Blood 01/05/2024 11:3 0 AM CDT 01/05/2024 11:30 AM CDT Melisa Curiel PHARMACEUTICAL SALES SPECIALIST CHEMISTRY ORDERABLES Final Result [facility] CLIA # [id number] [address] [place] [address] [id number] * (ABNORMAL) CBC WITH DIFFERENTIAL (01/05/2024 11:30 AM CDT) WBC 11.3(H) 4.2 - 9.1 K/uL 01/05/2024 11:44 AM [facility] RBC 4.23(L) 4.63 - 6.08 M/uL 01/05/2024 11:44 AM [facility] HEMOGLOBIN 12.2(L) 13.7 - 17.5 g/dL 01/05/2024 11:44 AM [facility] HEMATOCRIT 35.0(L) 40.1 - 51.0 % 01/05/2024 11:44 AM [facility] MCV 82.7 79.0 - 92.2 fL 01/05/2024 11:44 AM [facility] MCH 28.8 25.7 - 32.2 pg 01/05/2024 11:44 AM [facility] MCHC 34.9 32.3 - 36.5 g/dL 01/05/2024 11:44 AM [facility] RDW 12.3 11.0 - 14.5 % 01/05/2024 11:44 AM [facility] RDW-STDEV 37.2 36.9 - 56.9 fL 01/05/2024 11:44 AM [facility] PLATELETS 372 130 - 400 K/uL 01/05/2024 11:44 AM [facility] MPV 9.5(L) 10.0 - 14.8 fL 01/05/2024 11:44 AM [facility] NEUTROPHILS 87(H) 34 - 68 % 01/05/2024 11:44 AM [facility] LYMPHOCYTES 7(L) 22 - 53 % 01/05/2024 11:44 AM [facility] MONOCYTES 5 5 - 12 % 01/05/2024 11:44 AM [facility] EOSINOPHILS 0(L) 1 - 7 % 01/05/2024 11:44 AM [facility] BASOPHILS 0 0 - 1 % 01/05/2024 11:44 AM [facility] IMMATURE GRANULOCYTES 1 % 01/05/2024 11:44 AM [facility] NEUTROPHIL ABSOLUTE 9.86(H) 1.78 - 5.38 K/uL 01/05/2024 11:44 AM [facility] LYMPHOCYTE ABSOLUTE 0.81(L) 1.20 - 3.40 K/uL 01/05/2024 11:44 AM [facility] MONOCYTE ABSOLUTE 0.53 0.30 - 0.82 K/uL 01/05/2024 11:44 AM [facility] EOSINOPHIL ABSOLUTE 0.03(L) 0.04 - 0.54 K/uL 01/05/2024 11:44 AM [facility] BASOPHILS ABSOLUTE 0.02 0.01 - 0.08 K/uL 01/05/2024 11:44 AM [facility] IMMATURE GRANULOCYTES ABSOLUTE 0.09 K/uL 01/05/2024 11:44 AM [facility] Blood 01/05/2024 11:3 0 AM CDT 01/05/2024 11:30 AM CDT Melisa Curiel PHARMACEUTICAL SALES SPECIALIST HEMATOLOGY ORDERABLES Nishi herrera Result [facility] CLIA # [id number] [address] [facility] [address] [place] [address] documented in this encounter Visit Diagnoses Diagnosis Other rheumatoid arthritis with rheumatoid factor of unspecified site (CMS/HCC) Personal history of other infectious and parasitic diseases Vomiting following gastrointestinal surgery documented in this encounter Care Teams Hay Buckler Relationship Specialty Start Date End Date Luz Maria Peralta DO [address] [place] [address] PCP - General Family Practice 11/29/20 documented as of this encounter
--- OUTSIDE RECORDS SUMMARY | 2024-10-30 19:22 | XMS_ITS | Clinical Summary ---
Author Organization [facility] Address [address] [place] [address] Care Team Providers Care Butt Maker Name Role Phone Luz Maria Peralta Primary Care Provider [phone] Allergies Active Allergy Reactions Criticality Noted Date [...] at bedtime. Active naloxone (NARCAN) 4 mg/spray [place], Non-Aerosol Administer 1 spray in one nostril, [...] 100MG) 100 Tablet 3 024 2024 Discontinued methotrexate (RHEUMATREX) 2.5 mg [...] Encounters Date Type Department Care Team Description 10/21/2024 Orders Only [facility] [address] [place] [address] Provider, Abstract 10/11/[address] [facility] [address] [place] [address] Liliam Dillon PA 10/11/2024 [facility] [address] [place] [address] Luz Maria Peralta, DO 10/09/2024 External Device Data [facility] [place] Provider, Abstract 10/09/2024 External Device Data [place] Provider, Abstract 10/08/2024 External Device Data [place] Provider, Abstract 09/24/2024 External Device Data [place] Provider, Abstract 09/24/2024 [facility] [address] [place] [address] Luz Maria Peralta, DO 09/11/2024 External Device Data [place] Provider, Abstract 09/10/2024 External Device Data [place] Provider, Abstract 08/22/[address] [facility] [address] [place] [address] Megan Turner MD 08/15/2024 External Device Data [place] Provider, Abstract 08/15/2024 External Device Data [place] Provider, Abstract 08/15/2024 External Device Data [place] Provider, Abstract 08/14/2024 External Device Data [place] Provider, Abstract 08/13/2024 External Device Data [place] Provider, Abstract 08/09/2024 [facility] [address] [place] [address] Luz Maria Peralta, DO 08/09/[address] 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 Gender Identity Not on file Sexual [...] st Contact Info) Description 04/25/2025 10:30 AM RETAIL MARKETING MANAGER Telephone Check Up [facility] Gastroenterology- [place] [address] [facility] [address] [place] [address] Jessica Cooper NP [address] [facility] [address] [place] [address] Health Maintenance Due Date Last Done Comments HEPATITIS B VACCINES (1 of 3 - 19+ 3-dose series) 07/26/1994 DTAP/TDAP/TD VACCINES (1 - Tdap) 01/16/2017 01/16/20 17 COVID-19 Vaccine (4 - 2023-2 5 season) 2023 09/10/2021, 05/22/2020, 04/24/2020 INFLUENZA VACCINE (#1) 2024 5, 06/01/2023, 04/08/2022, Additional history exists Preventative Visit-Managed [...] METABOLIC PANEL Routine 10/18/2024 1:05 PM CDT HEMOGLOBIN A1C Routine 11/23/2023 1:59 PM CDT Normal routine physical examination COLONOSCOPY REPORT 06/22/2023 3: 22 PM CDT US ABDOMEN COMPLETE Routine 05/02/2018 1 2:00 AM RETAIL MARKETING MANAGER Acute generalized abdominal pain from Last 3 Months or Most Recently Relevant to Health Maintenance Results * COMPREHENSIVE METABOLIC PANEL (10/18/2024 1:05 PM CDT) Blood us Abstract Provider CHEMISTRY ORDERABLES Final Res ult * HEMOGLOBIN A1C (11/23/2023 1:59 PM CDT) HEMOGLOBIN A1C 5.5 <5.7 % of total Hgb [facility] Comment: For the purpose of screening for the presence of diabetes: <5.7% Consistent with the absence of diabetes 5.7-6.4% Consistent with increased risk for diabetes (prediabetes) > or =6.5% Consistent with diabetes This assay result is consistent with a decreased risk of diabetes. Currently, no consensus exists regarding use of hemoglobin A1c for diagnosis of diabetes in children. According to [place] Diabetes Association (ADA) guidelines, hemoglobin A1c <7.0% represents optimal control in non- diabetic patients. Different metrics may apply to specific patient populations. Standards of Medical Care in Diabetes(ADA). ESTIMATED AVERAGE GLUCOSE (MG/DL) 111 mg/dL [facility] ESTIMATED AVERAGE GLUCOSE (MMOL/L) 6.2 mmol/L [facility] Comment: This test was performed on the Jorden kurtis c503 platform. Effective 06/12/23, a change in test platforms from the [employer] to the Jorden kurtis c503 may have shifted HbA1c results compared to historical results. Based on laboratory validation testing conducted at [facility], the Jorden platform relative to the Sanders [...] recommended. FASTING:NO FASTING: NO Test Performed at: [facility] [address] [facility] [place] [address] Oral Parham MD Blood 11/23/2023 1:59 PM CDT 11/23/2023 2:00 PM CDT Melisa Curiel ACCESS CONSULTANT CHEMISTRY ORDERABLES Final Result [facility] [phone] [facility] [address] [facility] [place] [address] * COLONOSCOPY REPORT (06/22/2023 3:22 PM CDT) Narrative Procedure Note Shan, Christopher D, DO - 06/22/2023 3:22 PM CDT [facility] GI Patient Name: Devonte Roberts Procedure Date: 06/22/2023 Date of : [...] Scope Out: 3:19:10 PM [address] [place], [place] us Geraldo Torrez DO GI PROCEDURE ORDERABLES Final Result * US ABDOMEN COMPLETE (05/02/2018 12:00 AM RETAIL MARKETING MANAGER) Anatomical Region Laterality Modality Abdomen Other us Bon Madrigal MD US ORDERABLES Final Result from Last 3 Months or Most Recently Relevant to Health Maintenance Insurance MEDICAID [place] Advance Directives For more information, please contact: [phone] * Full Code (Latest Code Status on File) Date Activated Date Inactivated Comments 01/01/2024 10:18 PM 01/03/2024 1:42 PM * Full Code Date Activated Date Inactivated Comments 01/01/2024 11:37 AM 01/01/2024 10:18 PM * Full Code Date Activated Date Inactivated Comments 06/22/2023 1:50 PM 06/22/2023 5:59 PM Care Teams Butt Maker Relationship Specialty Start Date End Date Luz Maria Peralta DO [address] [place] [address] PCP - General Family Practice 11/29/20
[2024-10-30 19:30] VITALS: BP 132/93; PULSE 81; O2SAT 96
--- NOTE | 2024-10-30 19:41 | ED_ITS ---
HPI - SOB/Dyspnea 2 General: Chief Complaint: Shortness of Breath/Dyspnea Stated Complaint: Hard and painful to breathe Time Seen by Provider: 10/30/24 19:27 History of Present Illness: HPI Narrative: Patient with chest pain, difficult taking deep breaths. Also hurts with movement. No fever no chills. Had recent pneumonia just finished antibiotics Monday. Related Data Home Medications ?Medication ?Instructions ?Recorded ?Confirmed irbesartan 300 mg tablet 300 mg PO DAILY@20 06/14/21 10/18/24 levocetirizine 5 mg tablet 5 mg PO .HS 06/15/22 solifenacin 5 mg tablet (Vesicare) 5 mg PO DAILY 06/1510/18/24 omeprazole 40 mg capsule,delayed 40 mg PO DAILY 10/18/24 release hydralazine 100 mg tablet 100 mg PO BID 12/15/2310/18 amlodipine 5 mg tablet 5 mg PO DAILY 10/18/2410/18 spironolactone 25 mg tablet 25 mg PO DAILY 10/18/24 Previous Rx's ?Medication ?Instructions ?Recorded lacosamide 200 mg tablet (Vimpat) 200 mg PO BID #60 ta bs 08/08/19 chlorpromazine 25 mg tablet 25 mg PO BID@ #60 tab s 12/15/23 nortriptyline 50 mg capsule 50 mg PO BEDTIME@20 #30 ca ps 12/15/23 diclofenac sodium 75 mg 75 mg PO Q12H PRN pain #20 t abs 10/18/24 tablet,delayed release albuterol sulfate 90 mcg/actuation 2 inh inhalation Q6 H PRN shortness 10/31/24 aerosol inhaler (Ventolin HFA) of breath or wheezing # 6.7 grams baclofen 10 mg tablet 10 mg PO BID 10 days #20 tab s 10/31/24 prednisone 20 mg tablet 40 mg (2 x 20 mg) PO DAILY 5 days 10/31/24 #20 tabs Allergies Allergy/AdvReac Type Severity Reaction Status Date / Time Iodinated Contrast Media Allergy Severe Coded: Verified 10/30/24 19:24 heart stopped buprenorphine (From Suboxone) Allergy Intermediate ALGY-Rash Verified 10/30/24 19:24 naloxone (From Suboxone) Allergy Intermediate ALGY-Rash Verified 10/30/24 19:24 Penicillins Allergy Intermediate Rash Verified 10/30/24 19:24 sulfamethoxazole (From Allergy Unknown Unkown Verified 10/30/24 19:24 Septra) trimethoprim (From Septra) Allergy Unknown Unkown Verified 10/30/24 19:24 [facility] ED 2 [facility]: Medical History (Updated 10/31/24 @ 03:08 by Toni Maxwell MD) Low back pain Hypertension Chronic migraine without aura, intractable, with status migrainosus Complex partial epilepsy Urolithiasis Urinary hesitancy Chronic pain Right ureteral calculus Opioid use disorder, moderate, dependence Surgical History History of orthopedic surgery Hx of knee surgery bilateral arthroscopic Family History Father , UNKNOWN AGE No problems noted. Mother , AT AGE 74 Lung disease Diabetes Congestive heart failure (CHF) Other CAD (coronary artery disease) Cancer Social History Smoking and tobacco/nicotine status: current every day tobacco/nicotine user cigarettes Packs smoked per day: 0.25 Years cigarettes smoked: 24 Quit status (tobacco/nicotine): has tried quititng Number of times tried to quit tobacco: 2 Second hand smoke exposure: Yes Alcohol intake: former Year of sobriety/quit date alcohol: 2020 Substance/Drug Use: current Other substance/drug use details: CBD- oil. Housing: Assisted Living Facility Marital status: Legally Current occupational status: disabled Current gender identity: Male Course 2 Vital Signs: Vital signs: Vital Signs Temperature 98.1 F 10/30/24 19:22 Pulse Rate 70 10/31/24 02:52 Respiratory Rate 18 10/31/24 02:32 Blood Pressure 107/70 10/31/24 02:52 Pulse Oximetry 94 10/31/24 02:52 Oxygen Delivery Me thod Room Air 10/31/24 02:52 MDM - SOB/Dyspnea Medical Decision Making Patient much improved after Solu-Medrol and 3 DuoNeb's. Will discharge with steroids and azithromycin. For COPD exacerbation. Will also prescribe pain medication and muscle laxer for the broken rib. Differential Diagnosis Likely acute exacerbation of chronic obstructive airways disease Medical Records I reviewed the patient's medical records. Lab Data I reviewed the patient's lab results. 10/30/24 19:37 10/30/24 19:37 Labs/Radiology: Radiology Impressions Chest X-Ray 10/30/24 19:14 IMPRESSION: Persistent small pleural effusion and streaky opacity at the left lung base, nonspecific although commonly chronic. Chest CT 10/30/24 20:30 IMPRESSION: Small left pleural effusion. Trace right pleural effusion. Associated probable compressive atelectasis with superimposed airspace disease from other etiologies not totally excluded. Small pericardial effusion. Probable healing fracture of lateral aspect of the left rib 5. Laboratory Results WBC 14.18 10^3/uL (3.29-11.43) H 10/30/24 19:37 RBC 3.89 10^6/uL (3.85-5.65) 10/30/24 19:37 Hgb 11.10 g/dL (11.27-16.99) L 10/30/24 19:37 Hct 33.4 % (37-53) L 10/30/24 19:37 MCV 85.9 fl (82-101) 10/30/24 19:37 MCH 28.5 pg (27-33) 10/30/24 19:37 MCHC 33.2 g/dL (30-55) 10/30/24 19:37 RDW 14.4 % (12.1-15.1) 10/30/24 19:37 Plt Count 409 10^3/cmm (157-399) H 10/30/24 19:37 MPV 9.3 fL (7.4-10.4) 10/30/24 19:37 Neut % (Auto) 83.9 % 10/30/24 19:37 Lymph % (Auto) 7.1 % 10/30/24 19:37 [place] % (Auto) 6.7 % 10/30/24 19:37 Eos % (Auto) 1.4 % 10/30/24 19:37 Baso % (Auto) 0.3 % 10/30/24 19:37 Neut # (Auto) 11.89 10^3/uL (1.8-7.7) H 10/30/24 19:37 Lymph # (Auto) 1.0 10^3/uL (0.8-4.8) 10/30/24 19:37 [place] # (Auto) 1.0 10^3/uL (0.2-0.9) H 10/30/24 19:37 Eos # (Auto) 0.2 10^3/uL (0.0-0.8) 10/30/24 19:37 Baso # (Auto) 0.0 10^3/uL (0.0-0.1) 10/30/24 19:37 Nucleated RBC % (auto) 0 % 10/30/24 19:37 Nucleated RBCs # 0.0 /100WBC 10/30/24 19:37 Sodium 132 mmol/L (136-145) L 10/30/24 19:37 Potassium 3.3 mmol/L (3.5-5.1) L 10/30/24 19:37 Chloride 98 mmol/L (98-107) 10/30/24 19:37 Carbon Dioxide 19 mmol/L (22-29) L 10/30/24 19:37 Anion Gap 18.3 (5-19) 10/30/24 19:37 BUN 9 mg/dL (6-20) 10/30/24 19:37 Creatinine 0.8 mg/dL (0.7-1.2) 10/30/24 19:37 GFR Calculation 102.7 mL/min (90-130) 10/30/24 19:37 Glucose 167 mg/dL (65-115) H 10/30/24 19:37 Calculated Osmolality 276 mOsm/kg (285-295) L 10/30/24 19:37 Calcium 8.5 mg/dL (8.5-10.5) 10/30/24 19:37 Total Bilirubin 0.5 mg/dL (0.15-1.2) 10/30/24 19:37 AST 13 U/L (0-40) 10/30/24 19:37 ALT < 5 U/L (0-41) 10/30/24 19:37 Alkaline Phosphatase 106 U/L (40-130) 10/30/24 19:37 Troponin T Baseline < 6 ng/L (0-15) 10/30/24 19:37 Troponin T 120 Minute 7.75 ng/L (0-15) 10/30/24 21:47 Delta Troponin T 1.61577 ABS# (0-10) 10/30/24 21:47 Troponin T Hi Sens 6Hr 7.17 ng/L (0-15) 10/31/24 01:59 Troponin T Hi Sens 6Hr Delta 1.90222 ng/L (0-12) 10/31/24 01:59 C-Reactive Protein 28.7 mg/L (0.0-4.9) H 10/30/24 19:37 NT-Pro-B Natriuret Pep 348 pg/mL (0-125) H 10/30/24 19:37 Total Protein 6.0 g/dL (6.6-8.7) L 10/30/24 19:37 Albumin 3.5 g/dL (3.5-5.2) 10/30/24 19:37 Globulin 2.5 g/dL (1.3-4.6) 10/30/24 19:37 Procalcitonin 0.05 ng/mL (0-0.5) 10/30/24 19:37 Influenza A (PCR) Negative (Negative) 10/30/24 19:39 Influenza Type B (PCR) Negative (Negative) 10/30/24 19:39 RSV (PCR) Negative (Negative) 10/30/24 19:39 SARS-CoV-2 (PCR) Negative (Negative) 10/30/24 19:39 All radiology interpretation(s) finalized by discharge Other Data I personally reviewed and interpreted the following: (EKG performed at 1920 sinus rate of 83 parable 176, QTc of 438 with normal axis, no ST depressions reviewed at 1925) Discharge Plan Discharge Patient Disposition: Home Clinical Impression: Acute exacerbation of chronic obstructive airways disease, Fracture of left fifth rib Condition: Stable Prescriptions: New prednisone 20 mg tablet 40 mg PO DAILY 5 Days Qty: 20 0RF baclofen 10 mg tablet 10 mg PO BID 10 Days Qty: 20 0RF albuterol sulfate [Ventolin HFA] 90 mcg/actuation HFA aerosol inhaler 2 inh inhalation Q6H PRN (Reason: shortness of breath or wheezing) Qty: 6.7 0RF No Action Vimpat 200 mg tablet 200 mg PO BID Qty: 60 5RF chlorpromazine 25 mg tablet 25 mg PO BID@ Qty: 60 11RF nortriptyline 50 mg capsule 50 mg PO BEDTIME@20 Qty: 30 11RF solifenacin [Vesicare] 5 mg tablet 5 mg PO DAILY levocetirizine 5 mg tablet 5 mg PO .HS hydralazine 100 mg tablet 100 mg PO BID omeprazole 40 mg capsule,delayed release(DR/EC) 40 mg PO DAILY irbesartan 300 mg Tablet 300 mg PO DAILY@20 diclofenac sodium 75 mg tablet,delayed release (DR/EC) 75 mg PO Q12H PRN (Reason: pain) Qty: 20 0RF amlodipine 5 mg tablet 5 mg PO DAILY spironolactone 25 mg tablet 25 mg PO DAILY Discharge Orders: Discharge ED (Routine); Ordered 10/31/24 Ordered By: Toni Maxwell Referrals: Luz Maria Peralta DO [Primary Care Provider, Family Practice] Patient Instructions: Rib Fracture (ED), Patient Portal & Ssuana Instructions Print Language: Luxembourgish Coding Level of Care Code ED Rn Admission for Isaias Pyle
[2024-10-30 20:01] VITALS: BP 143/90; PULSE 77; O2SAT 94
[2024-10-30 20:03] LABS: Hematocrit 33.4 % (37-53); Hemoglobin 11.10 g/dL (11.27-16.99); Mean Corpuscular HGB Conc 33.2 g/dL (30-55); Mean Corpuscular Hemoglobin 28.5 pg (27-33); Mean Corpuscular Volume 85.9 fl (82-101); Nucleated Red Blood Cells % 0 %; Platelet Count 409 10^3/cmm (157-399); Red Blood Count 3.89 10^6/uL (3.85-5.65); White Blood Count 14.18 10^3/uL (3.29-11.43)
[2024-10-30 20:20] LABS: Troponin(5th) Baseline < 6 ng/L (0-15)
--- NOTE | 2024-10-30 20:30 | CTR_ITS ---
PROCEDURE INFORMATION: Exam: CT Chest Without Contrast; Diagnostic Exam date and time: 10/30/2024 8:59 PM Age: 49 years old Clinical indication: Cough; Additional info: Persistent cough, chest wall pain, pain with deep breath. , Rhonchi throughout L lung TECHNIQUE: Imaging protocol: Diagnostic computed tomography of the chest without contrast. Radiation optimization: All CT scans at this facility use at least one of these dose optimization techniques: automated exposure control; mA and/or kV adjustment per patient size (includes targeted exams where dose is matched to clinical indication); or iterative reconstruction. COMPARISON: CT chest wo con [id number] 08/28/2023 9:52 AM RADIATION DOSE METRICS: Total DLP (mGy-cm): 442 FINDINGS: Lungs: See Pleural spaces finding. Pleural spaces: Small left pleural effusion. Trace right pleural effusion. Associated probable compressive atelectasis with superimposed airspace disease from other etiologies not totally excluded. Few scattered strands and reticulonodular densities, nonspecific although commonly chronic. Heart: Small pericardial effusion. Lymph nodes: Unremarkable. No enlarged lymph nodes. Vasculature: No definitive radiographic evidence of significant coronary artery calcifications. Unremarkable. No aortic aneurysm. Bones/joints: Mild degenerative changes of vertebral bodies with multilevel endplate spurring and disc space narrowing. Probable healing fracture of lateral aspect of the left rib 5. Soft tissues: Unremarkable. CT/CT chest con [id number] IMPRESSION: Small left pleural effusion. Trace right pleural effusion. Associated probable compressive atelectasis with superimposed airspace disease from other etiologies not totally excluded. Small pericardial effusion. Probable healing fracture of lateral aspect of the left rib 5.
[2024-10-30 20:35] LABS: NT Pro B Type Natriuretic Pept 348 pg/mL (0-125); Procalcitonin 0.05 ng/mL (0-0.5)
[2024-10-30 20:39] VITALS: BP 132/86; PULSE 75; O2SAT 95
[2024-10-30 20:46] LABS: Alanine Aminotransferase < 5 U/L (0-41); Albumin Level 3.5 g/dL (3.5-5.2); Alkaline Phosphatase 106 U/L (40-130); Anion Gap 18.3 (5-19); Aspartate Amino Transferase 13 U/L (0-40); Blood Urea Nitrogen 9 mg/dL (6-20); Calcium 8.5 mg/dL (8.5-10.5); Carbon Dioxide 19 mmol/L (22-29); Chloride 98 mmol/L (98-107); Creatinine Clr Calc Pharmacy 112.1859; Globulin 2.5 g/dL (1.3-4.6); Glucose 167 mg/dL (65-115); Osmolality Calculated 276 mOsm/kg (285-295); Potassium 3.3 mmol/L (3.5-5.1); Sodium 132 mmol/L (136-145); Total Protein 6.0 g/dL (6.6-8.7)
[2024-10-30 21:50] LABS: Respiratory Syncytial Virus Ce NEGATIVE (Negative); SARS-CoV-2 PCR NEGATIVE (Negative)
--- NOTE | 2024-10-30 21:55 | ECG_ITS ---
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 Measurements Intervals [place] Rate: 65 P: 25 IN: 186 QRS: 17 QRSD: 118 T: 33 QT: 461 QTc: 479 Interpretive Statements SINUS RHYTHM MODERATE INTRAVENTRICULAR CONDUCTION DELAY [110+ ms QRS DURATION] NONSPECIFIC T-WAVE ABNORMALITY PROLONGED QT INTERVAL Compared to ECG 10/30/2024 19:52:10 Prolonged QT interval now present T-wave abnormality still present Electronically Signed On 10-30-2024 22:50:46 CDT by Latia Rodriguez M.D. [email or web address]
[2024-10-30 22:41] VITALS: BP 101/74; PULSE 65; O2SAT 94
[2024-10-30] MEDS: FUROsemide 10 mg/mL SDV 2mL 20 MG IVP (22:42)
[2024-10-30 22:44] LABS: Troponin 5 2HR 7.75 ng/L (0-15); Troponin 5 2HR Delta 1.75001 ABS# (0-10)
[2024-10-31 00:02] VITALS: BP 117/73; PULSE 61; RESP 19; O2SAT 99
--- NOTE | 2024-10-31 01:39 | ECG_ITS ---
[facility] Test Date: 2024-10-31 Pat Name: Devonte Roberts Department: Room: Gender: Male [employer] We[employer]: : 1975 Requested By: Toni Maxwell Order Number: [id number] Arpita MD: JUAN SAENZ Measurements Intervals [place] Rate: 62 P: 43 [place]: 196 QRS: 30 QRSD: 109 T: 30 QT: 418 QTc: 428 Interpretive Statements SINUS RHYTHM NONSPECIFIC T-WAVE ABNORMALITY Compared to ECG 10/30/2024 21:55:48 Intraventricular conduction delay no longer present Prolonged QT interval no longer present T-wave abnormality still present Electronically Signed On 11-05-2024 20:01:37 CDT by JUAN SAENZ [email or web address]
[2024-10-31 01:47] VITALS: BP 72/57; PULSE 61; RESP 16; O2SAT 91
[2024-10-31 02:18] VITALS: BP 96/65; PULSE 60; RESP 18; O2SAT 95
[2024-10-31 02:32] VITALS: PULSE 63; RESP 18; O2SAT 94
[2024-10-31 02:33] LABS: Troponin 5 6HR 7.17 ng/L (0-15); Troponin 5 6HR Delta 1.17001 ng/L (0-12)
[2024-10-31 02:52] VITALS: BP 107/70; PULSE 70; O2SAT 94
[2024-10-31 03:35] VITALS: BP 110/72; PULSE 64; O2SAT 94
== END 2024-10-31 03:41 | disposition home or self-care (01) ==
PROVIDERS: Emergency Medicine; Emergency Provider Emergency Medicine; PCP Family Medicine
DX: J44.1 Chronic obstructive pulmonary disease with (acute) exacerbation (principal); S22.32XA Fracture of one rib, left side, initial encounter for closed fracture; Z11.52 Encounter for screening for COVID-19; J90 Pleural effusion, not elsewhere classified; F17.210 Nicotine dependence, cigarettes, uncomplicated; I10 Essential (primary) hypertension; X58.XXXA Exposure to other specified factors, initial encounter
CPT/HCPCS: 36415; 71045; 71250; 80053; 83880; 84145; 84484; 85025; 86140; 87637; 93005; 94640; 96374; 96375; 99285; J1885; J1938; J9999